=== PATIENT | male | born 1945 | race Caucasian/White ===

== ENCOUNTER 2018-12-15 11:10 | Inpatient (IN) | payer MEDICARE, OTHER ==
[2018-12-15] VITALS (28 sets, daily range): BP systolic 111–160; BP diastolic 47–129; PULSE 77–97; RESP 16–25; Ht 170.2 cm; Wt 67.6 kg
[~2018-12-15] VITALS: Ht 170.2 cm; Wt 67.6 kg
[~2018-12-15 11:10] MED LIST: ALBU8.5H5 INH; CETI10TA19 PO; CLON1TAB13 PO; DICL100G37 TOP; DILT240C85 PO; FENO145T37 PO; LIDOCAINE 2% (SDV) 5 ML INJ ONE; MECL-77 PO; MONT10TA21 PO; RANI150T5 PO; ROSU10TA55 PO
--- NOTE | 2018-12-15 12:19 | ERD ---
ER Documentation Chief Complaint Chief Complaint ALOC with left sided weakness, LKWT [id number] HPI Patient is a 73-year-old male with hypertension who presents altered. Please note the history and physical exam is limited secondary to the patient's altered mental status. The patient was last seen by family 1 hour ago normal and was br ought in by ambulance. The patient was found on the couch. The patient had a code stroke called from the field at 11:08 AM. It is difficult to obtain history otherwise. ROS All systems reviewed and are negative except as per history of present illness. Medications Home Meds Reported Medications Ranitidine Hcl* (Ranitidine Hcl*) 150 Mg Tablet, 150 MG PO HS, #30 TAB 12/15/18 Esomeprazole Mag Trihydrate (Nexium) 40 Mg Capsule.dr, 40 MG PO DAILY, #30 CAP 12/15/18 Memantine* (Namenda* XR) 7 Mg Cap.spr.24, 7 MG PO DAILY, #30 TAB 12/15/18 Losartan-Hydrochlorothiazide (Losartan-HCTZ) 50-12.5 Mg Tab, 1 TAB PO DAILY, TAB 12/15/18 Sitagliptin* (Januvia*) 50 Mg Tablet, 50 MG PO DAILY, #30 TAB 12/15/18 Hydralazine Hcl* (Hydralazine Hcl*) 25 Mg Tab, 25 MG PO Q6H PRN for SBP>150, #60 TAB 12/15/18 Glimepiride* (Glimepiride*) 1 Mg Tablet, 1 MG PO WITH BREAKFAST, TAB 12/15/18 Fenofibrate, Micronized (Fenofibrate) 134 Mg Capsule, 134 MG PO DAILY, CAP 12/15/18 Prasugrel Hydrochloride* (Effient*) 5 Mg Tablet, 5 MG PO DAILY, TAB 12/15/18 Docusate Sodium* (Dok*) 250 Mg Capsule, 250 MG PO TID, #60 CAP 12/15/18 Diltiazem Hcl* (Cardizem CD*) 240 Mg Cap.sr.24h, 240 MG PO DAILY, #30 CAP 12/15/18 Cyanocobalamin (Vitamin B-12) (Cyanocobalamin Injection) 1,000 Mcg/1 Ml Vial, 1000 MCG IJ Q WEEK, VIAL 12/15/18 Rosuvastatin Calcium* (Crestor*) 10 Mg Tablet, 10 MG PO QHS, #30 TAB 12/15/18 Clonazepam* (Clonazepam*) 1 Mg Tablet, 1 MG PO BID PRN for ANXIETY, TAB 12/15/18 Tadalafil (Cialis) 5 Mg Tablet, 5 MG PO DAILY, TAB 12/15/18 Celecoxib* (Celebrex*) 200 Mg Capsule, 200 MG PO BID, CAP 12/15/18 Discontinued Reported Medications Meclizine Hcl* (Meclizine Hcl*) 25 Mg Tablet, 25 MG PO TID, TAB 09/27/15 Clonazepam* (Clonazepam*) 1 Mg Tablet, 1 MG PO BID PRN for ANXIETY, TAB 09/27/15 Cetirizine Hcl* (Cetirizine Hcl*) 10 Mg Tablet, 10 MG PO DAILY, #30 TAB 09/27/15 Fenofibrate Nanocrystallized* (Fenofibrate*) 145 Mg Tablet, 134 MG PO DAILY, TAB 09/27/15 Albuterol Sulfate* (Albuterol Sulfate* HFA) 8.5 Gm Hfa.aer.ad, 1-2 PUFF INH BID PRN for WHEEZING AND SOB, #1 INHALER 09/27/15 Diltiazem Hcl (DILTIAZEM 24HR CD) 240 Mg Cap.er.24h, 240 MG PO, CAP 09/27/15 Diclofenac Sodium* (Voltaren* Gel) 1% -100 Gm Gel, 2 GM TOP BID, #1 TUB 09/27/15 Ranitidine Hcl* (Ranitidine Hcl*) 150 Mg Tablet, 150 MG PO DAILY, TAB 09/27/15 Montelukast Sodium* (Singulair*) 10 Mg Tablet, 10 MG PO QHS, #30 TAB 09/27/15 Rosuvastatin Calcium* (Crestor*) 10 Mg Tablet, 10 MG PO QHS, #30 TAB 09/27/15 Allergies Allergies: Coded Allergies: Penicillins (Unverified Allergy, Unknown, 12/15/18) aspirin (Unverified Allergy, Unknown, 12/15/18) PMhx/Soc Medical and Surgical Hx: Unable to obtain History of Surgery: No Anesthesia Reaction: No Hx Neurological Disorder: No Hx Respiratory Disorders: Yes Hx Cardiac Disorders: Yes Hx Psychiatric Problems: No Hx Miscellaneous Medical Probl: No Hx Alcohol Use: No Hx Substance Use: No Hx Tobacco Use: No Smoking Status: Never smoker FmHx Unable to obtain Physical Exam Vitals Vital Signs Date Temp Pulse Resp B/P (MAP) Pulse Ox O2 O2 Flow FiO2 Time Delivery Rate 12/15/18 69 14 172/118 100 Nasal 12:22 (136) Cannula 12/15/18 Nasal 11:20 Cannula 12/15/18 96.3 63 15 173/74 99 11:10 (107) Physical Exam Const: Altered mental status Head: Atraumatic Eyes: Normal Conjunctiva ENT: Left sided facial droop Neck: Full range of motion. No meningismus. Resp: Clear to auscultation bilaterally Cardio: Regular rate and rhythm, no murmurs Abd: Soft, non tender, non distended. Normal bowel sounds Skin: No petechiae or rashes Back: No midline or flank tenderness Ext: No cyanosis, or edema Neur: Awake and able to follow simple commands, flaccid left-sided upper and lower extremity paralysis, only able to say his name Result Diagram: 12/15/18 1114 12/15/18 1114 Results 24 hrs Laboratory Tests Test 12/15/18 11:14 12/15/18 11:28 12/15/18 12:05 White Blood Count 15.2 10^3/ul Red Blood Count 4.27 10^6/ul Hemoglobin 12.3 g/dl Hematocrit 38.5 % Mean Corpuscular Volume 90.2 fl Mean Corpuscular Hemoglobin 28.8 pg Mean Corpuscular 31.9 g/dl Hemoglobin Concent Red Cell Distribution Width 13.3 % Platelet Count 347 10^3/UL Mean Platelet Volume 9.6 fl Immature Granulocytes % 0.700 % Neutrophils % 78.9 % Lymphocytes % 13.8 % Monocytes % 6.0 % Eosinophils % 0.2 % Basophils % 0.4 % Nucleated Red Blood Cells % 0.0 /100WBC Immature Granulocytes # 0.110 10^3/ul Neutrophils # 12.0 10^3/ul Lymphocytes # 2.1 10^3/ul Monocytes # 0.9 10^3/ul Eosinophils # 0.0 10^3/ul Basophils # 0.1 10^3/ul Nucleated Red Blood Cells # 0.0 10^3/ul Prothrombin Time 12.9 Sec Prothrombin Time Ratio 1.0 INR International 0.96 Normalized Ratio Activated Partial Thromboplast 23.3 Sec Time Sodium Level 143 mmol/L Potassium Level 3.4 mmol/L Chloride Level 104 mmol/L Carbon Dioxide Level 26 mmol/L Anion Gap 13 Blood Urea Nitrogen 23 mg/dl Creatinine 1.19 mg/dl Est Glomerular Filtrat mL/min Rate mL/min Glucose Level 192 mg/dl Hemoglobin A1c 5.7 % Calcium Level 9.8 mg/dl Creatine Kinase 144 IU/L Creatine Kinase Index 0.5 Creatinine Kinase MB (Mass) 0.74 ng/ml Troponin I < 0.012 ng/ml Triglycerides Level 170 mg/dl Cholesterol Level 193 mg/dl LDL Cholesterol, Calculated 118 mg/dl HDL Cholesterol 41 mg/dl Cholesterol/HDL Ratio 4.7 RATIO Ethyl Alcohol Level < 10.0 mg/dl Bedside Glucose 176 mg/dL Urine Color STRAW Urine Clarity CLEAR Urine pH 6.0 Urine Specific [place] 1.014 Urine Ketones NEGATIVE mg/dL Urine Nitrite NEGATIVE mg/dL Urine Bilirubin NEGATIVE mg/dL Urine Urobilinogen NEGATIVE mg/dL Urine Leukocyte Esterase NEGATIVE Christian/ul Urine Hemoglobin NEGATIVE mg/dL Urine Glucose 2+ mg/dL Urine Total Protein NEGATIVE mg/dl Current Medications Medications Dose Sig/Genesis Start Time Status Last (Trade) Ordered Route PRN Stop Time Admin Dose Reason Admin Nicardipine 200 ml @ ONCE STAT 12/15/18 12/15/18 HCl 50 mls/hr IV 12:20 12/15/18 12:33 16:19 150 mg ONCE STAT 12/15/18 DC Succinylcholi IV 12:23 12/15/18 ne Chloride 12:24 (Anectine Syringe) Etomidate 20 mg ONCE STAT 12/15/18 DC (Amidate) IV 12:23 12/15/18 12:24 1 mg ONCE STAT 12/15/18 DC Hydromorphone IV 12:23 12/15/18 HCl 12:24 (Dilaudid) 1 mg ONCE STAT 12/15/18 DC Hydromorphone IV 12:23 12/15/18 HCl 12:24 (Dilaudid) Procedures/MDM CT brain shows large right-sided bleed with midline shift per radiology. Chest x-ray read by radiology. EKG read by me: Rate/Rhythm: Regular rate and rhythm at a normal rate Intervals: Normal Impression: No evidence of ischemia or arrhythmia Patient is a 73-year-old male who presents altered. A code stroke was called from the field at 11:08 AM. 11:08 AMcode stroke called from the field 11:10 AMarrival to the ER 11:[address] scan 11:16 AMcall to tell neurology 11:20 AMpatient is not a TPA candidate as the patient has a large bleed seen on CT scan I did consider intubation initially and then further on the course but at this time the family wants to hold off for intubation. The patient is a large right-sided bleed which is life-threatening. At this point I do not see any signs of coagulation abnormalities. Blood pressure was 170/110 and the patient was started on a Cardene drip. I spoke with Dr. Henderson who will speak to the family about potential surgical interventions. Tele-neurology saw the patient as well and recommended blood pressure control with a blood pressure of 140/90 is the goal. Patient will be admitted to the intensive care unit to the care of Dr. Gannon. His prognosis is poor. Critical Care: Time: 45 minutes excluding all billable procedures. Treatments/Evaluations: Close monitoring and treatment of unstable vital signs, cardiorespiratory, and neurologic status, while maintaining tight balance of fluid, respiratory, and cardiac interventions. Departure Diagnosis: Primary Impression: ICH (intracerebral hemorrhage) Intracerebral hemorrhage etiology: nontraumatic Cerebral hemorrhage location: cerebral hemisphere, cortical portion Laterality: right Qualified Codes: I61.1 - Nontraumatic intracerebral hemorrhage in hemisphere, cortical Additional Impression: Altered mental status Altered mental status type: unspecified Qualified Codes: R41.82 - Altered mental status, unspecified Condition: Critical NANCY SHEPPARD MD Dec 15, 2018 12:19
[2018-12-15] MEDS ORDERED: niCARdipine-NS 0.1MG/ML DRIP 200 ML IV STA (12:20)
[2018-12-15] MEDS ORDERED: CELE200C PO (12:21)
[2018-12-15] MEDS ORDERED: TADA5TAB2 PO (12:22)
[2018-12-15] MEDS ORDERED: ETOMIDATE 20 MG INJ IV STA (12:23)
[2018-12-15] MEDS ORDERED: ROSU10TA55 PO (12:23)
[2018-12-15] MEDS ORDERED: SUCCINYLCHOLINE CHLORIDE 100 MG/5 ML SYG IV STA (12:23)
[2018-12-15] MEDS ORDERED: CLON1TAB13 PO (12:23)
[2018-12-15] MEDS ORDERED: HYDROmorphONE 1 MG/ML SYG IV STA ×2 (12:23)
[2018-12-15] MEDS ORDERED: CYAN100092 IJ (12:25)
[2018-12-15] MEDS ORDERED: DILT240C79 PO (12:27)
[2018-12-15] MEDS ORDERED: DOCU250C68 PO (12:28)
[2018-12-15] MEDS ORDERED: PRAS5TAB3 PO (12:28)
[2018-12-15] MEDS ORDERED: FENO134C PO (12:29)
[2018-12-15] MEDS ORDERED: GLIM1TAB2 PO (12:30)
[2018-12-15] MEDS ORDERED: HYDR-3671 PO (12:31)
[2018-12-15] MEDS ORDERED: SITA50TA2 PO (12:31)
[2018-12-15] MEDS ORDERED: LOSA1TAB22 PO (12:32)
[2018-12-15] MEDS ORDERED: MEMA7CAP PO (12:34)
[2018-12-15] MEDS ORDERED: ESOM40CA PO (12:35)
[2018-12-15] MEDS ORDERED: RANI150T5 PO (12:36)
[2018-12-15] MEDS ORDERED: ZOLP5TAB7 PO (12:38)
[2018-12-15] MEDS ORDERED: LEVO5TAB28 PO (12:39)
[2018-12-15] MEDS ORDERED: RANI150T35 PO (12:40)
[2018-12-15] MEDS ORDERED: ERGO500013 PO (12:41)
[2018-12-15] MEDS ORDERED: VITA400C41 PO (12:42)
[2018-12-15] MEDS ORDERED: CYAN500T46 PO (12:43)
--- NOTE | 2018-12-15 12:54 | STROKE ---
Date/Time of Note Date/Time of Note DATE: 12/15/18 TIME: 14:50 Patient Information General Patient location: emergency Arrival Date Age 73 Gender male Weight 75 kg POC Glucose Glucose Result Bedside Glucose - 72 Hours Test 12/15/18 11:28 Bedside Glucose 176 mg/dL (70-220) Vital Signs Vital Signs Vital Signs Date Temp Pulse Resp B/P (MAP) Pulse Ox O2 O2 Flow FiO2 Time Delivery Rate 12/15/18 69 14 172/118 100 Nasal 12:22 (136) Cannula 12/15/18 96.3 11:10 Patient History Current Medications Allergies: Coded Allergies: Penicillins (Unverified Allergy, Unknown, 12/15/18) aspirin (Unverified Allergy, Unknown, 12/15/18) ASPIRIN/SALICYLATES Labs Coagulation Labs: Coagulation Test 12/15/18 11:14 Activated Partial Thromboplast Time 23.3 Sec (23.0-35.0) History & Physical History of Present Illness 73 y/o M last known well at 0200 this morning. Per family at [facility], pt went to sleep on couch and awoke at approximately 0800, was unable to get up off couch and was incontinent of urine. Initial EMS evaluation revealed pinpoint pupils, no significant change with narcan. Presented to ER with decreased responsiveness, no improvement since. No recent trauma. Family reports no known anticoagulants. INR 1.7, plt 343 On exam, pt comatose. No spontaneous speech or eye opening. Left paresis, moves right spontaneously and minimally. . NIH Stroke Scale NIH Stroke Scale Date/Time Recorded DATE: 12/15/18 TIME: 14:50 Submitted By Marycarmen Vela t-PA Imaging Review Date/Time Imaging Reviewed DATE: 12/15/18 TIME: 14:50 t-PA Administration Weight 75 kg Recommedation submitted by Marycarmen Vela Recommendations Recommendation Spontaneous ICH. ICH score =3. Recommend STAT Neurosurgery consultation, keep HOB elevated 30 degrees. Additional imaging when stable.. Admit to ICU for close monitoring and treatment. Keep SBP ,160/100, avoid hypotension. Correct any coagulopathy. MRI brain and MRA brain and neck. Elevate HOB 30 degrees. Intubate for airway protection. seizure precautions. 2DECHO. D/W Dr. Katalina VELA,MARYCARMEN MAURER Dec 15, 2018 12:54
[2018-12-15] MEDS ORDERED: MANNITOL 25% 50 ML INJ IV* ONE (13:00)
[2018-12-15] MEDS ORDERED: NACL 0.9% 3 ML SYG IV SCH (13:00)
[2018-12-15] MEDS ORDERED: DESMOPRESSIN 22.5 MCG in SOD CHLORIDE 0.9% 50 ML IVPB ONE (13:00)
[2018-12-15] MEDS ORDERED: HYDROmorphONE 0.5 MG/0.5 ML SYG IV PRN ×4 (13:00→17:30)
[2018-12-15] MEDS ORDERED: GELATIN SIZE 100 SPONGE ONE ×2 (13:10→16:37)
[2018-12-15] MEDS ORDERED: POLYMYXIN/BACITRACIN 1L IRRIG ONE (13:10)
[2018-12-15] MEDS ORDERED: THROMBIN (BOVINE) 5,000 UNIT VIAL TP ONE ×4 (13:10→16:49)
--- NOTE | 2018-12-15 13:17 | CONS ---
Assessment/Plan Assessment/Plan Hospital Course 73 M c/ reported Hx of HTN, who is admitted to the [facility] ICU for management of acute cerebral hemorrhage...for which neurology is consulted.. s/p emergent neurosurgery on 12/15 P: Post-op management per neurosurgery CTA Head with post-op surveillance scan if possible Keppra 500mg iv bid for now Ativan iv prn prolonged seizure Strict BP control (SBP < 160) Hold antiplatelets and anticoagulants Goals of care and other management per primary Will follow clinically Consultation Date/Type/Reason Admit Date/Time Type of Consult Neurology Reason for Consultation ICH Requesting Provider: CASSANDRA WHITE MD Date/Time of Note DATE: 12/15/18 TIME: 13:02 Hx of Present Illness 73 yo M with hx of HTN who presented to the ED with altered mental status. History was obtained from chart review. It is elsewhere noted: HPI Patient is a 73-year-old male with hypertension who presents altered. Please note the history and physical exam is limited secondary to the patient's altered mental status. The patient was last seen by family 1 hour ago normal and was brought in by ambulance. The patient was found on the couch. The patient had a code stroke called from the field at 11:08 AM. It is difficult to obtain history otherwise. Subjective hx not possible: pt non-verbal, pt critical status Exam/Review of Systems Exam Vitals Vital Signs Date Temp Pulse Resp B/P (MAP) Pulse Ox O2 O2 Flow FiO2 Time Delivery Rate 12/15/18 69 14 172/118 100 Nasal 12:22 (136) Cannula 12/15/18 96.3 11:10 Exam PE: Gen Appearance: No Apparent Distress HEENT: Normocephalic; on nasal cannula Cardiovascular: Regular rate; SBP 190s Respiratory: Abdomen: Soft Extremities: Dry NE: The patient was obtunded and nonverbal. Cranial nerve examination was limited by mental status. R pupils was 5mm, dilated and unreactive; L pupil was pinpoint and unreactive to light. Funduscopic examination was limited. Face was grossly symmetric, w/ present corneal reflexes. Tone was increased in BUE (L>R). Muscle bulk was normal. I did not see fas ciculations. The patient minimal, but decerebrate posturing to noxious stimulation. Coordination and gait testing was limited by mental status. Arm and leg reflexes were within normal limits and symmetric. Munoz's sign was absent. Plantar responses were flexor. Results Result Diagram: 12/15/18 1114 12/15/18 1114 Results 24hrs Laboratory Tests Test 12/15/18 11:14 12/15/18 11:28 12/15/18 12:05 White Blood Count 15.2 #H Red Blood Count 4.27 L Hemoglobin 12.3 L Hematocrit 38.5 L Mean Corpuscular Volume 90.2 Mean Corpuscular Hemoglobin 28.8 L Mean Corpuscular Hemoglobin Concent 31.9 L Red Cell Distribution Width 13.3 Platelet Count 347 Mean Platelet Volume 9.6 # Immature Granulocytes % 0.700 H Neutrophils % 78.9 H Lymphocytes % 13.8 L Monocytes % 6.0 Eosinophils % 0.2 Basophils % 0.4 Nucleated Red Blood Cells % 0.0 Immature Granulocytes # 0.110 H Neutrophils # 12.0 H Lymphocytes # 2.1 Monocytes # 0.9 Eosinophils # 0.0 Basophils # 0.1 Nucleated Red Blood Cells # 0.0 Prothrombin Time 12.9 Prothrombin Time Ratio 1.0 INR International Normalized Ratio 0.96 Activated Partial Thromboplast Time 23.3 Sodium Level 143 Potassium Level 3.4 L Chloride Level 104 Carbon Dioxide Level 26 Anion Gap 13 Blood Urea Nitrogen 23 H Creatinine 1.19 Est Glomerular Filtrat Rate mL/min Glucose Level 192 Hemoglobin A1c 5.7 Calcium Level 9.8 Creatine Kinase 144 Creatine Kinase Index 0.5 Creatinine Kinase MB (Mass) 0.74 Troponin I < 0.012 Triglycerides Level 170 H Cholesterol Level 193 LDL Cholesterol, Calculated 118 HDL Cholesterol 41 Cholesterol/HDL Ratio 4.7 Ethyl Alcohol Level < 10.0 H Bedside Glucose 176 Urine Color STRAW Urine Clarity CLEAR Urine pH 6.0 Urine Specific [place] 1.014 Urine Ketones NEGATIVE Urine Nitrite NEGATIVE Urine Bilirubin NEGATIVE Urine Urobilinogen NEGATIVE Urine Leukocyte Esterase NEGATIVE Urine Hemoglobin NEGATIVE Urine Glucose 2+ H Urine Total Protein NEGATIVE Medications Medication Current Medications Nicardipine HCl 200 ml @ 50 mls/hr ONCE STAT IV Last administered on 12/15/18at 12:33; Admin Dose 50 MLS/HR; Start 12/15/18 at 12:20; Stop 12/15/18 at 16:19 IV Flush (NS 3 ml) 3 ml PER PROTOCOL IV ; Start 12/15/18 at 13:00 Hydromorphone HCl (Dilaudid) 0.5 mg Q4H PRN IV .SEVERE PAIN 7-10; Start 12/15/18 at 13:00 Desmopressin Acetate 22.5 mcg/ Sodium Chloride 55.625 ml @ 111.25 mls/hr ONCE ONCE IVPB ; Start 12/15/18 at 13:00; Stop 12/15/18 at 13:29 Past Medical History reviewed Home Meds Reported Medications Cyanocobalamin* (Vitamin B12*) 500 Mcg Tab, 500 MCG PO DAILY, TAB 12/15/18 Vitamin E Mixed* (Vitamin E*) 400 Unit Capsule, 400 UNIT PO DAILY, CAP 12/15/18 Ergocalciferol (Vitamin D2) (VITAMIN D2) 50,000 Unit Capsule, 40945 UNIT PO Q7D, CAP 12/15/18 Ranitidine Hcl* (Zantac*) 150 Mg Tablet, 150 MG PO HS, #30 TAB 12/15/18 Levocetirizine Dihydrochloride (Xyzal) 5 Mg Tablet, 5 MG PO QPM, TAB 12/15/18 Zolpidem Tartrate* (Zolpidem Tartrate*) 5 Mg Tablet, 5 MG PO QHS PRN for INSOMNIA, #30 TAB 12/15/18 Esomeprazole Mag Trihydrate (Nexium) 40 Mg Capsule.dr, 40 MG PO DAILY, #30 CAP 12/15/18 Memantine* (Namenda* XR) 7 Mg Cap.spr.24, 7 MG PO DAILY, #30 TAB 12/15/18 Losartan-Hydrochlorothiazide (Losartan-HCTZ) 50-12.5 Mg Tab, 1 TAB PO DAILY, TAB 12/15/18 Sitagliptin* (Januvia*) 50 Mg Tablet, 50 MG PO DAILY, #30 TAB 12/15/18 Hydralazine Hcl* (Hydralazine Hcl*) 25 Mg Tab, 25 MG PO Q6H PRN for SBP>150, #60 TAB 12/15/18 Glimepiride* (Glimepiride*) 1 Mg Tablet, 1 MG PO WITH BREAKFAST, TAB 12/15/18 Fenofibrate, Micronized (Fenofibrate) 134 Mg Capsule, 134 MG PO DAILY, CAP 12/15/18 Prasugrel Hydrochloride* (Effient*) 5 Mg Tablet, 5 MG PO DAILY, TAB 12/15/18 Docusate Sodium* (Dok*) 250 Mg Capsule, 250 MG PO TID, #60 CAP 12/15/18 Diltiazem Hcl* (Cardizem CD*) 240 Mg Cap.sr.24h, 240 MG PO DAILY, #30 CAP 12/15/18 Cyanocobalamin (Vitamin B-12) (Cyanocobalamin Injection) 1,000 Mcg/1 Ml Vial, 1000 MCG IJ Q WEEK, VIAL 12/15/18 Rosuvastatin Calcium* (Crestor*) 10 Mg Tablet, 10 MG PO QHS, #30 TAB 12/15/18 Clonazepam* (Clonazepam*) 1 Mg Tablet, 1 MG PO BID PRN for ANXIETY, TAB 12/15/18 Tadalafil (Cialis) 5 Mg Tablet, 5 MG PO DAILY, TAB 12/15/18 Celecoxib* (Celebrex*) 200 Mg Capsule, 200 MG PO BID, CAP 12/15/18 Discontinued Reported Medications Ranitidine Hcl* (Ranitidine Hcl*) 150 Mg Tablet, 150 MG PO HS, #30 TAB 12/15/18 Meclizine Hcl* (Meclizine Hcl*) 25 Mg Tablet, 25 MG PO TID, TAB 09/27/15 Clonazepam* (Clonazepam*) 1 Mg Tablet, 1 MG PO BID PRN for ANXIETY, TAB 09/27/15 Cetirizine Hcl* (Cetirizine Hcl*) 10 Mg Tablet, 10 MG PO DAILY, #30 TAB 09/27/15 Fenofibrate Nanocrystallized* (Fenofibrate*) 145 Mg Tablet, 134 MG PO DAILY, TAB 09/27/15 Albuterol Sulfate* (Albuterol Sulfate* HFA) 8.5 Gm Hfa.aer.ad, 1-2 PUFF INH BID PRN for WHEEZING AND SOB, #1 INHALER 09/27/15 Diltiazem Hcl (DILTIAZEM 24HR CD) 240 Mg Cap.er.24h, 240 MG PO, CAP 09/27/15 Diclofenac Sodium* (Voltaren* Gel) 1% -100 Gm Gel, 2 GM TOP BID, #1 TUB 09/27/15 Ranitidine Hcl* (Ranitidine Hcl*) 150 Mg Tablet, 150 MG PO DAILY, TAB 09/27/15 Montelukast Sodium* (Singulair*) 10 Mg Tablet, 10 MG PO QHS, #30 TAB 09/27/15 Rosuvastatin Calcium* (Crestor*) 10 Mg Tablet, 10 MG PO QHS, #30 TAB 09/27/15 Medications Current Medications Nicardipine HCl 200 ml @ 50 mls/hr ONCE STAT IV Last administered on 12/15/18at 12:33; Admin Dose 50 MLS/HR; Start 12/15/18 at 12:20; Stop 12/15/18 at 16:19 IV Flush (NS 3 ml) 3 ml PER PROTOCOL IV ; Start 12/15/18 at 13:00 Hydromorphone HCl (Dilaudid) 0.5 mg Q4H PRN IV .SEVERE PAIN 7-10; Start 12/15/18 at 13:00 Desmopressin Acetate 22.5 mcg/ Sodium Chloride 55.625 ml @ 111.25 mls/hr ONCE ONCE IVPB ; Start 12/15/18 at 13:00; Stop 12/15/18 at 13:29 Allergies: Coded Allergies: Penicillins (Unverified Allergy, Unknown, 12/15/18) aspirin (Unverified Allergy, Unknown, 12/15/18) ASPIRIN/SALICYLATES Past Surgical History reviewed Social History reviewed Smoking Status: Never smoker VICK DIEHL NP Dec 15, 2018 13:12 PARTHA MILLER Dec 15, 2018 15:19
--- NOTE | 2018-12-15 13:51 | CONS ---
Assessment/Plan Assessment/Plan Assessment/Plan (Daily) Date of consultation: 12/15/2089 Requesting physician: Dr. Obinna Chapman with the emergency department Consulting service: Neurosurgery This is a 73-year-old male with past medical history significant for hypertension and diabetes who lives with one of his sisters and was noted to hav e developed acute altered level of consciousness earlier today and was brought in to the emergency department. Initially at the time of arrival, the patient was found to be left hemiplegic but somewhat awake and able to follow simple commands with right side. However as time passed the patient became progressively lethargic and no longer following commands. As part of his workup , he had a CT of the head without contrast that showed a large right frontal hematoma and neurosurgery was consulted for further evaluation. According to the patient's family including his niece, Elida, the patient has not had any preceding trauma to the head. The patient usually takes is medications including his blood pressure medications. The patient amongst his other medications uses Effient although the family does not exactly know for what indication he takes his medication. The patient does not have any children and never . According to the family, the patient has been relatively active and able to take care of himself prior to today. Past medical history: Hypertension, diabetes, asthma, erectile dysfunction, coronary artery disease, asthma Allergies: Penicillin, aspirin Review of systems: Cannot be obtained as the patient is comatose Family history: Noncontributory Social history: Per family, EtOH: None tobacco: None illicit or recreational drugs: None Physical examination: This is a elderly male lying in bed. He appears to be younger than his stated age. He is intubated and on a ventilator. There anisa ears to be a left facial droop. Pupils are 2 mm bilaterally. Bilateral corneals, cough and gag reflex are present. He does not follow commands. He does not open his eyes to voice or pain. He does not move his upper or lower extremities to voice or pain. Muscle bulk and tone is normal bilateral upper and lower extremity. Deep tendon reflexes are 1+ bilateral upper and lower extremity. There is no Fabienne sign present bilaterally. The remainder of the neurologic exam cannot be completed as the patient is unresponsive. Imaging: CT of the head without contrast: There is a very large right frontal hematoma with a hematoma coming right to the surface of the cortex laterally and extension of the intraparenchymal hematoma into the lateral ventricle causing intraventricular hemorrhage. There is several millimeter right to left midline shift with evidence of subfalcine herniation. Assessment/plan: This is a 73-year-old male with spontaneous large right frontal intraparenchymal hematoma with extension into the lateral ventricle causing intraventricular hemorrhage. The patient has had a rapid deterioration in his neurologic state while being in the emergency department. The likely cause of the patient's above hematoma is multifactorial including hypertension, amyloid angiopathy as well as iatrogenic i.e. use of Effient. As soon as I was contacted by Dr. Chapman, the emergency room physician about the patient, I personally reviewed his CT imaging and immediately spoke to the patient's niece, Elida, who amongst other family members was at bedside. I informed the family about the patient's very significant right frontal hemorrha gic stroke and his critically ill state. We discussed the various treatment options that included surgical intervention as well as medical/supportive care versus medical/supportive care alone. Surgical intervention would include emergent evacuation of the right frontal hematoma, placement of ventriculostomy drain followed by medical/supportive care that would be in the ICU including strict blood pressure control. We also spoke about the pros and cons of each of the above approaches. In addition, I also emphasized the goals of surgical intervention that would be to help decompress the patient's right frontal region as much as possible to minimize impending transtentorial herniation. However, unfortunately with surgical intervention it is not possible to undue the irreversible effects of the large hemorrhagic stroke that would include the patient's left hemiplegia. I also explained that the patient would need to be intubated as soon as possible given his depressed neurologic state to protect his airway should the family based on his prior wishes (if any) decide to pursue maximum invasive and supportive care. The patient's family at first was unsure as to whether they even wanted the patient to be intubated and needed to get the rest of the family in the room to see the patient. The family eventually decided to proceed with intubation that was done in the emergency room by the anesthesiologist. They also decided to proceed with surgical intervention. I also discussed the risks and benefits of the above operation with the risks including bleeding, infection, weakness, numbness, paralysis, cerebrospinal fluid leak, comatose state, difficulty with speech, difficulty with vision, persistent vegetative state, failure of improvement of symptoms or worsening of symptoms, need for further surgeries including redo craniotomy for evacuation of the hematoma and/or CSF diversion i.e. CLOTH DOFFER shunt placement as well as those risks associated with surgery and general anesthesia including deep venous thrombosis, pulmonary embolism, pneumonia, heart attack, stroke and . It was also emphasized to the patient's family that given the fact that the patient has been taking Effient which irreversibly inhibits platelet function for 7 days, the patient's prognosis is further worsened as it makes the operation and the hemostasis more difficult and it makes it more likely for the hematoma to recur. The patient's family members including his many nieces, nephews and siblings all understand the above discussion and wished to proceed with the surgery. There are also aware of the patient's overall poor prognosis. They also appear to be very appreciative of all the care that the patient is receiving. BRYN PINK MD Dec 15, 2018 13:51
[2018-12-15] MEDS ORDERED: LIDOCAINE 1% (MPF) 30 ML INJ ONE (14:54)
[2018-12-15] MEDS ORDERED: BUPIVACAINE 0.5%/EPI (SDV) 30 ML INJ ONE (14:54)
--- NOTE | 2018-12-15 15:05 | HP ---
Date/Time of Note Date/Time of Note DATE: 12/15/18 TIME: 15:02 Assessment/Plan VTE Prophylaxis SCD applied (from Nsg): Yes Pharmacological prophylaxis: NA/contraindicated Pharm contraindication: bleeding Lines/Catheters IV Catheter Type (from Nrsg): Saline Lock Assessment/Plan Hospital Course 73 yo male who presents with obtundation acute and found to have hemorrhagic stroke/ICH with severe hypertension - Acute surgical management per Dr Ruby - JUAN M > 30 Hypertenion management Full plan to follow OR Family requests DNR Result Diagram: 12/15/18 1114 12/15/18 1114 Results 24hrs Laboratory Tests Test 12/15/18 11:14 12/15/18 11:28 12/15/18 12:05 White Blood Count 15.2 #H Red Blood Count 4.27 L Hemoglobin 12.3 L Hematocrit 38.5 L Mean Corpuscular Volume 90.2 Mean Corpuscular Hemoglobin 28.8 L Mean Corpuscular Hemoglobin Concent 31.9 L Red Cell Distribution Width 13.3 Platelet Count 347 Mean Platelet Volume 9.6 # Immature Granulocytes % 0.700 H Neutrophils % 78.9 H Lymphocytes % 13.8 L Monocytes % 6.0 Eosinophils % 0.2 Basophils % 0.4 Nucleated Red Blood Cells % 0.0 Immature Granulocytes # 0.110 H Neutrophils # 12.0 H Lymphocytes # 2.1 Monocytes # 0.9 Eosinophils # 0.0 Basophils # 0.1 Nucleated Red Blood Cells # 0.0 Prothrombin Time 12.9 Prothrombin Time Ratio 1.0 INR International Normalized Ratio 0.96 Activated Partial Thromboplast Time 23.3 Sodium Level 143 Potassium Level 3.4 L Chloride Level 104 Carbon Dioxide Level 26 Anion Gap 13 Blood Urea Nitrogen 23 H Creatinine 1.19 Est Glomerular Filtrat Rate mL/min Glucose Level 192 Hemoglobin A1c 5.7 Calcium Level 9.8 Creatine Kinase 144 Creatine Kinase Index 0.5 Creatinine Kinase MB (Mass) 0.74 Troponin I < 0.012 Triglycerides Level 170 H Cholesterol Level 193 LDL Cholesterol, Calculated 118 HDL Cholesterol 41 Cholesterol/HDL Ratio 4.7 Ethyl Alcohol Level < 10.0 H Bedside Glucose 176 Urine Color STRAW Urine Clarity CLEAR Urine pH 6.0 Urine Specific [place] 1.014 Urine Ketones NEGATIVE Urine Nitrite NEGATIVE Urine Bilirubin NEGATIVE Urine Urobilinogen NEGATIVE Urine Leukocyte Esterase NEGATIVE Urine Hemoglobin NEGATIVE Urine Glucose 2+ H Urine Total Protein NEGATIVE Urine Opiates Screen Negative Urine Barbiturates Negative Urine Amphetamines Screen Negative Urine Benzodiazepines Screen Negative Urine Cocaine Screen Negative Urine Cannabinoids Negative HPI/ROS Admit Date/Time Admit Date/Time Hx of Present Illness 73 yo male with h/o hypertension who was found obtunded on his couch by family He is unable to provide a history. Found to have ICH and taken emergently to OR. Family requests DNR status but agrees to surgical management ROS Subjective hx not possible: pt non-verbal, pt critical Constitutional: no complaints, improved Eyes: no complaints ENT: no complaints Respiratory: no complaints Cardiovascular: no complaints Gastrointestinal: no complaints Genitourinary: no complaints Musculoskeletal: no complaints Skin: no complaints Neurologic: no complaints Endocrine: no complaints Lymphatic: no complaints Psychological: no complaints, nl mood/affect Immunologic: no complaints PMH/Family/Social Past Medical History Medical History: hypertension Medications Current Medications Nicardipine HCl 200 ml @ 50 mls/hr ONCE STAT IV Last administered on 12/15/18at 12:33; Admin Dose 50 MLS/HR; Start 12/15/18 at 12:20; Stop 12/15/18 at 16:19 IV Flush (NS 3 ml) 3 ml PER PROTOCOL IV ; Start 12/15/18 at 13:00 Hydromorphone HCl (Dilaudid) 0.5 mg Q4H PRN IV .SEVERE PAIN 7-10; Start 12/15/18 at 13:00 Levetiracetam 100 ml @ 400 mls/hr BID IVPB ; Start 12/15/18 at 14:00 Coded Allergies: Penicillins (Unverified Allergy, Unknown, 12/15/18) aspirin (Unverified Allergy, Unknown, 12/15/18) ASPIRIN/SALICYLATES Past Surgical History Past Surgical Hx: no surgical history Family History Significant Family History: no pertinent family hx Social History Alcohol Use: none Smoking Status: Never smoker Drug Use: none Exam/Review of Systems Vital Signs Vitals Vital Signs Date Temp Pulse Resp B/P (MAP) Pulse Ox O2 O2 Flow FiO2 Time Delivery Rate 12/15/18 115 20 133/68 100 Nasal 13:24 (89) Cannula 12/15/18 4.0 13:00 12/15/18 96.3 11:10 Exam Exam Obtunded No response to noxious stimuli Breathing spotnaneously Pupils fixed b/l, no vestibular reflexes present Babinski negative Protecting airway adequately, breathing comfortably RRR CASSANDRA WHITE MD Dec 15, 2018 15:05
[2018-12-15] MEDS ORDERED: LORAZEPAM 2 MG INJ IV PRN ×2 (15:30→17:30)
[2018-12-15] MEDS ORDERED: LIDOCAINE 1%/EPI 30 ML INJ INJ ONE (15:54)
[2018-12-15] MEDS ORDERED: PROPOFOL 100 ML ONE (16:15)
[2018-12-15] MEDS ORDERED: ALBUMIN HUMAN 25% 200 ML ONE (16:15)
[2018-12-15] MEDS ORDERED: CA CHLORIDE (GM) 10% 10 ML INJ ONE (16:15)
[2018-12-15] MEDS ORDERED: ROCURONIUM 50 MG INJ ONE (16:15)
[2018-12-15] MEDS ORDERED: CA CHLORIDE 10% 10 ML SYRINGE ONE (16:15)
[2018-12-15] MEDS ORDERED: PROPOFOL 40 ML ONE (16:15)
[2018-12-15] MEDS ORDERED: PHENYLephrine (100 MCG/ML) 5ML SYG ONE (16:21)
[2018-12-15] MEDS ORDERED: BACITRACIN/POLYMYXIN 28.35 GM OINT TOP ONE (16:48)
--- NOTE | 2018-12-15 17:15 | PREAC ---
Date/Time of Note Date/Time of Note DATE: 12/15/18 TIME: 16:33 Anesthesia Eval and Record Evaluation Time Pre-Procedure Interview DATE: 12/15/18 TIME: 1321 EMERGENT CRASH SURGERY - POST dated Preop summary due to zero time prior to OR transport Age 73 Sex male NPO: 8 hrs Preoperative diagnosis acute, severe intracerebral hemorrhage Planned procedure emergent R craniotomy Past Medical History Past Medical History: Includes Cardio: HTN, CAD Endo: Diabetes Pulm: Smoking Hx Neuro: CVA, Other (severe acute SAH) Heme: Anemia, Other (pt was ) Surgery & Anesthesia Issues Aspiration risk Meds Anticoagulation: No Beta Allyn within 24 hr: No Reason Beta Allyn not given: Pt. not on B-Allyn Reported Medications Cyanocobalamin* (Vitamin B12*) 500 Mcg Tab, 500 MCG PO DAILY, TAB 12/15/18 Vitamin E Mixed* (Vitamin E*) 400 Unit Capsule, 400 UNIT PO DAILY, CAP 12/15/18 Ergocalciferol (Vitamin D2) (VITAMIN D2) 50,000 Unit Capsule, 92678 UNIT PO Q7D, CAP 12/15/18 Ranitidine Hcl* (Zantac*) 150 Mg Tablet, 150 MG PO HS, #30 TAB 12/15/18 Levocetirizine Dihydrochloride (Xyzal) 5 Mg Tablet, 5 MG PO QPM, TAB 12/15/18 Zolpidem Tartrate* (Zolpidem Tartrate*) 5 Mg Tablet, 5 MG PO QHS PRN for INSOMNIA, #30 TAB 12/15/18 Esomeprazole Mag Trihydrate (Nexium) 40 Mg Capsule.dr, 40 MG PO DAILY, #30 CAP 12/15/18 Memantine* (Namenda* XR) 7 Mg Cap.spr.24, 7 MG PO DAILY, #30 TAB 12/15/18 Losartan-Hydrochlorothiazide (Losartan-HCTZ) 50-12.5 Mg Tab, 1 TAB PO DAILY, TAB 12/15/18 Sitagliptin* (Januvia*) 50 Mg Tablet, 50 MG PO DAILY, #30 TAB 12/15/18 Hydralazine Hcl* (Hydralazine Hcl*) 25 Mg Tab, 25 MG PO Q6H PRN for SBP>150, #60 TAB 12/15/18 Glimepiride* (Glimepiride*) 1 Mg Tablet, 1 MG PO WITH BREAKFAST, TAB 12/15/18 Fenofibrate, Micronized (Fenofibrate) 134 Mg Capsule, 134 MG PO DAILY, CAP 12/15/18 Prasugrel Hydrochloride* (Effient*) 5 Mg Tablet, 5 MG PO DAILY, TAB 12/15/18 Docusate Sodium* (Dok*) 250 Mg Capsule, 250 MG PO TID, #60 CAP 12/15/18 Diltiazem Hcl* (Cardizem CD*) 240 Mg Cap.sr.24h, 240 MG PO DAILY, #30 CAP 12/15/18 Cyanocobalamin (Vitamin B-12) (Cyanocobalamin Injection) 1,000 Mcg/1 Ml Vial, 1000 MCG IJ Q WEEK, VIAL 12/15/18 Rosuvastatin Calcium* (Crestor*) 10 Mg Tablet, 10 MG PO QHS, #30 TAB 12/15/18 Clonazepam* (Clonazepam*) 1 Mg Tablet, 1 MG PO BID PRN for ANXIETY, TAB 12/15/18 Tadalafil (Cialis) 5 Mg Tablet, 5 MG PO DAILY, TAB 12/15/18 Celecoxib* (Celebrex*) 200 Mg Capsule, 200 MG PO BID, CAP 12/15/18 Discontinued Reported Medications Ranitidine Hcl* (Ranitidine Hcl*) 150 Mg Tablet, 150 MG PO HS, #30 TAB 12/15/18 Meclizine Hcl* (Meclizine Hcl*) 25 Mg Tablet, 25 MG PO TID, TAB 09/27/15 Clonazepam* (Clonazepam*) 1 Mg Tablet, 1 MG PO BID PRN for ANXIETY, TAB 09/27/15 Cetirizine Hcl* (Cetirizine Hcl*) 10 Mg Tablet, 10 MG PO DAILY, #30 TAB 09/27/15 Fenofibrate Nanocrystallized* (Fenofibrate*) 145 Mg Tablet, 134 MG PO DAILY, TAB 09/27/15 Albuterol Sulfate* (Albuterol Sulfate* HFA) 8.5 Gm Hfa.aer.ad, 1-2 PUFF INH BID PRN for WHEEZING AND SOB, #1 INHALER 09/27/15 Diltiazem Hcl (DILTIAZEM 24HR CD) 240 Mg Cap.er.24h, 240 MG PO, CAP 09/27/15 Diclofenac Sodium* (Voltaren* Gel) 1% -100 Gm Gel, 2 GM TOP BID, #1 TUB 09/27/15 Ranitidine Hcl* (Ranitidine Hcl*) 150 Mg Tablet, 150 MG PO DAILY, TAB 09/27/15 Montelukast Sodium* (Singulair*) 10 Mg Tablet, 10 MG PO QHS, #30 TAB 09/27/15 Rosuvastatin Calcium* (Crestor*) 10 Mg Tablet, 10 MG PO QHS, #30 TAB 09/27/15 Current Medications IV Flush (NS 3 ml) 3 ml PER PROTOCOL IV ; Start 12/15/18 at 13:00 Hydromorphone HCl (Dilaudid) 0.5 mg Q4H PRN IV .SEVERE PAIN 7-10; Start 12/15/18 at 13:00 Levetiracetam 100 ml @ 400 mls/hr BID IVPB ; Start 12/15/18 at 14:00 Lorazepam (Ativan) 1 mg Q6H PRN IV seizure; Start 12/15/18 at 15:30 Meds reviewed: Yes Allergies Coded Allergies: Penicillins (Unverified Allergy, Unknown, 12/15/18) aspirin (Unverified Allergy, Unknown, 12/15/18) ASPIRIN/SALICYLATES Allergies Reviewed: Yes Labs/Studies Labs Reviewed: Reviewed by anesthesiologist Result Diagram: 12/15/18 1114 12/15/18 1114 Laboratory Tests 12/15/18 11:14 Blood Bank Test 12/15/18 13:05 Antibody Screen NEGATIVE Blood Product Summary Counts Blood Type A NEGATIVE test: N/A Studies: ECG, CXR Pre-procedure Exam Last vitals Vital Signs Date Temp Pulse Resp B/P (MAP) Pulse Ox O2 O2 Flow FiO2 Time Delivery Rate 12/15/18 115 20 133/68 100 Nasal 13:24 (89) Cannula 12/15/18 4.0 13:00 12/15/18 96.3 11:10 Airway: Adequate mouth opening, Adequate thyromental dist Mallampati: Mallampati III Teeth: Normal Lung: Normal Heart: Normal ASA Physical Status ASA physical status: 4 Emergency: E Planned Anesthetic General/MAC: ETT, A Line, CVP Planned Pain Management Parenteral pain med, Local by surgeon Pre-operative Attestations Prior to commencing anesthesia and surgery, the patient was re-evaluated, there was verification of: *The patient's identity *The results of appropriate recent lab work and preoperative vital signs *The above evaluation not changing prior to induction *Anesthetic plan, risk benefits, alternative and complications discussed with patient/family; questions answered; patient/family understands, accepts and wishes to proceed. MAZIN AZUL MD Dec 15, 2018 16:43
[2018-12-15] MEDS ORDERED: LEVALBUTEROL (NEB) 1.25 MG/0.5 ML AMP HHN PRN (17:30)
[2018-12-15] MEDS ORDERED: METOCLOPRAMIDE 10 MG INJ IV PRN (17:30)
[2018-12-15] MEDS ORDERED: DIPHENHYDRAMINE 50 MG INJ IV PRN (17:30)
[2018-12-15] MEDS ORDERED: MIDAZOLAM 1 MG/ML 2 ML INJ IV PRN (17:30)
[2018-12-15] MEDS ORDERED: FENTAnyl 50 MCG/ML VIAL IV PRN ×2 (17:30)
[2018-12-15] MEDS ORDERED: IPRATROPIUM (NEB) 0.5 MG/2.5 ML AMP HHN PRN (17:30)
[2018-12-15] MEDS ORDERED: hydrALAzine 20 MG INJ IV PRN (17:30)
[2018-12-15] MEDS ORDERED: ONDANSETRON 4 MG INJ IV PRN ×2 (17:30→18:00)
[2018-12-15] MEDS ORDERED: NALOXONE (0.4 MG/ML) INJ IV PRN (18:00)
--- NOTE | 2018-12-15 18:12 | OPR ---
Date/Time of Note Date/Time of Note DATE: 12/15/18 TIME: 18:12 Operative Report Preoperative Diagnosis Please see below. Postoperative Diagnosis Please see below. Operation/Procedure Performed Please see below. Surgeon see signature line Cotton Puller None Anesthesia Type: general Estimated Blood Loss: 10 - 50 ml's (50cc) Transfusion Platelets Specimen Please see below. Grafts/Implants Please see below. Tubes/Drains Please see below. Complications none Pt Condition Post Procedure: critical Disposition: other (ICU) Procedure Description Date of operation: 12/15/2018 Operating Surgeon: Andrae Henderson MD Preoperative diagnosis: Large right frontoparietal spontaneous intraparenchymal hematoma with intraventricular hemorrhage Postoperative diagnosis: Large right frontoparietal spontaneous intraparenchymal hematoma with intraventricular hemorrhage Procedures performed: 1. Right frontoparietal craniotomy for evacuation of intraparenchymal hematoma 2. Left frontal external ventriculostomy drain placement 3. Intraoperative microscope with microdissection Indications for procedure: Please look at the inpatient consultation note for full set of indications. Description of operative procedure: The patient was brought emergently to the operating room and placed supine on the operating table. After general anesthesia was obtained, his head was placed on a doughnut. All pressure points were noted and padded appropriately. He had just been given 50 g of mannitol. The left Samaria's point was located in a small strip of hair was shaven. A small linear incision was marked at the left Chloe's point. A small strip of hair was shaven posteriorly close to the left parietal boss. After the scalp was prepped and draped under standard sterile fashion, local anesthetics were infiltrated into the marked incision. The skin was then incised down to the level of the skull. The self-retaining retractor was placed in position. The hand-held drill was used to create a bur hole down to the level of the dura. The dura was then opened up sharply with the trocar. The Bactiseal ventriculostomy catheter was then inserted to a depth of 5 cm pointing towards the ipsilateral medial canthus and ipsilateral external auditory meatus. A pop through the ependymal surface was felt. Blood-tinged CSF was seen coming out under increased pressure. The ventriculostomy catheter was then tunneled under the scalp and brought out of the skin at the left parietal boss area. The ventriculostomy catheter tip was then capped. The small left frontal incision was reapproximated with a simple running nylon 3-0 suture. The ventriculostomy catheter was secured at its exit site to the scalp with a suture. The ventriculostomy catheter was then connected to a ventriculostomy drain bag and placed at 10 cm above the level of foramen of Carl. The left frontal incision area and the ventriculostomy exit site were then covered by Tegaderm dressings. The ventriculostomy drain was further secured in position to the scalp with Tegaderms. Attention was now paid to the right side. The patient's scalp was then rotated towards the left exposing the right kong-scalp. A curvilinear incision (a modified Tobias's incision) was marked over the right frontal temporoparietal area going close to midline and just behind the hairline. A strip of hair was shaven around the marked incision site. After the skin was prepped and draped under standard sterile fashion, local anesthetics were infiltrated into the marked incision. The skin was then incised down to the level of the skull. The scalp flap was then rotated anteriorly and kept in place with fishhooks with the full that lap underneath the scalp flap. The purchasing supervisor was used to create 2 bur holes down to the level of the dura, one over the most anterior (anterior to the coronal suture) and one over the most posterior (posterior to the coronal suture) exposed part of the bone just off of midline. The dura was not dissected off of the overlying skull. The craniotome was used to complete the craniotomy over the exposed bone. The bone flap was then removed. The opera ting microscope was brought into the field. The underlying dura appeared to be tense. In order to minimize herniation of the edematous underlying brain through the dural opening, a small dural opening was made over the anterior part of the exposed dura by opening the dura in a semi-cruciate fashion. The dural sleeves were then retracted with Nurolon sutures. Obvious blood that came right underneath the cortical surface could be seen over the exposed cortex. A small corticectomy over the very thin remaining layer of cortex was then made. A very large intraparenchymal blood clot was encountered. The blood clot was then removed piece by piece in a stepwise fashion from the center of the blood clot working towards the borders of the blood clot until normal white brain tissue was encountered at each of the borders. By the end of the hematoma evacuation, a very large cavity was seen where the very large hematoma was previously located. Complete evacuation of the hematoma was obtained. Several pieces of the hematoma were sent off the table for permanent pathology. Complete hemostasis was obtained. The hematoma cavity was copiously irrigated with antibiotic solution. Pieces of Gelfoam with thrombin were then placed inside the large hematoma evacuation cavity to help minimize refilling of the cavity with blood over time. A large round MONSERRAT drain was placed inside the intraparenchymal hematoma evacuation cavity and the other end of it was brought out the skin away from the incision. The dura was then reapproximated with interrupted Nurolon sutures. The dural edges at the craniotomy site were then lined up with hemostatic agents including Gelfoam with thrombin. The bone flap was then reattached to the skull with titanium plates and screws. The wound was copiously irrigated with antibiotic solution. The scalp was then reapproximated at the level of the galea with interrupted sutures. The skin was reapproximated with lisa. The large drain was then secured to the skin with a suture at its exit site and the drain was then connected to a bile drain back for passive drainage. A thin film of Neosporin ointment was placed over the incision site. The patient was then transported to the ICU in stable condition. Estimated blood loss: 50 cc Blood products administered: Platelets Packs/drains: 1. Left frontal ventriculostomy drain 2. Right frontal intraparenchymal drain Type of anesthesia: General Incision: 1. Left Chloe 2. Right frontoparietal temporal Skin closure: 1. Left frontal: Nylon 3-0 2. Right frontoparietal temporal: Lisa Wound classification: Clean Specimen removed: Right frontal intraparenchymal hematoma Patient's condition: Critical Prognosis: Guarded ANDRAE HENDERSON MD Dec 15, 2018 18:12
--- NOTE | 2018-12-15 18:12 | SIPON ---
Date/Time of Note Date/Time of Note DATE: 12/15/18 TIME: 18:10 Operative Report Preoperative Diagnosis Large right frontoparietal ICH with IVH Postoperative Diagnosis Same as above Operation/Procedure Performed Right frontoparietal craniotomy for evacuation of ICH Left frontal ventriculostomy Surgeon see signature line field research assistant None Anesthesia: general Estimated blood loss: 10 - 50 ml's Transfusion Required Platelets Specimen right frontal hematoma Grafts/Implants none Complications none BRYN PINK MD Dec 15, 2018 18:12
[2018-12-15] MEDS: LABETALOL HCL 20MG INJ IV PRN ×2 (18:44→19:01)
[2018-12-15] MEDS: CEFAZOLIN 1 GM/50 ML (PMX) 50 ML IVPB SCH (18:58)
[2018-12-15] MEDS: PROPOFOL 100 ML IV SCH ×2 (19:02→20:03)
[2018-12-15] MEDS: LEVETIRACETAM 500 MG (PMX) 100 ML IVPB SCH ×2 (19:57→23:00)
[2018-12-15] MEDS ORDERED: niCARdipine 25 MG in SOD CHLORIDE 0.9% 240 ML IV STA (20:25)
[2018-12-15] MEDS ORDERED: NACL 3% 500 ML IV STA (21:08)
[2018-12-15] MEDS ORDERED: FENTAnyl (DRIP) 1000 mcg/100mL 100 ML IV STA (21:08)
[2018-12-15] MEDS: NS + KCL 20 MEQ 1,000 ML IV SCH (21:24)
[2018-12-15] MEDS: NEOMYC/POLYMYX/BACIT 30 GM OINT TOP SCH (22:09)
--- NOTE | 2018-12-15 22:36 | PAC ---
Date/Time of Note Date/Time of Note DATE: 12/15/18 TIME: 22:36 Post-Anesthesia Notes Post-Anesthesia Note Last documented vital signs Vital Signs Date Temp Pulse Resp B/P (MAP) Pulse Ox O2 O2 Flow FiO2 Time Delivery Rate 12/15/18 93 20:52 12/15/18 98.7 19 139/47 98 Mechanical 20:00 (77) Ventilator 12/15/18 70 18:10 12/15/18 4.0 13:00 Activity: Other (sedated) Respiratory function: Other Cardiovascular function: WNL Mental status: Other (sedated) Pain reasonably controlled: Yes Hydration appropriate: Yes Nausea/Vomiting absent: Yes MAZIN AZUL MD Dec 15, 2018 22:36
[2018-12-16] VITALS (75 sets, daily range): BP systolic 96–176; BP diastolic 42–88; PULSE 69–100; RESP 18–24
[2018-12-16] MEDS: niCARdipine 50 MG in SOD CHLORIDE 0.9% 480 ML IV SCH (00:29)
[2018-12-16] MEDS: CEFAZOLIN 1 GM/50 ML (PMX) 50 ML IVPB SCH ×2 (02:24→08:39)
[2018-12-16] MEDS: PROPOFOL 100 ML IV SCH ×3 (02:24→16:41)
[2018-12-16] MEDS: PANTOPRAZOLE 40 MG INJ IV SCH (05:31)
[2018-12-16] MEDS: NEOMYC/POLYMYX/BACIT 30 GM OINT TOP SCH ×2 (08:31→20:52)
[2018-12-16] MEDS: HYDROmorphONE 0.5 MG/0.5 ML SYG IV PRN ×2 (08:45→15:44)
[2018-12-16] MEDS: LEVETIRACETAM 500 MG (PMX) 100 ML IVPB SCH ×2 (09:00→20:52)
--- NOTE | 2018-12-16 10:12 | PN ---
Date/Time of Note Date/Time of Note DATE: 12/16/18 TIME: 10:11 Copies To: Assessment/Plan Date of progress note: 12/16/2018 The patient is postop day 1 status post emergent right frontoparietal craniotomy for evacuation of intraparenchymal hematoma and left frontal external ventriculostomy drain placement. Patient is in the ICU overall hemodynamically stable. His blood pressure is being managed with Cardene drip being titrated up and down as needed to keep his systolic blood pressure less than 160. The patient's ventriculostomy is at the level of foramen of Monro and has been putting out drainage around 5-8 cc every hour. The ventriculostomy drainage that was more bloody is now becoming more serous. His right frontal intraparenchymal drain has put out approximately 120 cc of bloody output since being transferred to the ICU. His scalp incisions are clean dry and intact. The patient is intubated and sedated on propofol and fentanyl. He does not open his eyes to voice or pain. His pupils are pinpoint bilaterally. He appears to have a cough and a gag reflex. There is no movement to pain involving the upper and lower extremities on sedation. However the nurse tells me that off sedation earlier this morning there was some noted movement of the lower extremities. The patient is postop CT shows an evacuation cavity in the anterior right frontal area with the intraparenchymal drain in place. There is some recurrence of hematoma in the posterior frontal parietal region. There is a left frontal ventriculostomy drain with the tip at the level of the foramen of Carl. The right to left midline shift is increased by a few millimeters compared to the initial CT of the head. However part of the shift may also be related to CSF drainage via the ventriculostomy drain. 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 The patient was started on hypertonic saline overnight to further increase his serum sodium close to 150. The last sodium was 149 and his IV fluids have now been switched back to normal saline with a goal of keeping his serum sodium between 145-150. The patient also was noted to have dropped his hemoglobin from 12.3 to 7.4. The patient's EBL was 100 cc and the drainage from the intraparenchymal drain has been around 120 cc. Part of the drop in the hemoglobin may be related to hemodilution but not all the drop in the hemoglobin can be attributed to hemodilution only. Therefore the patient is currently receiving 2 units of PRBC given his critically ill status and need for optimal cerebral perfusion. Ventriculostomy will be continued. He will be continued on Keppra for possible seizures. Patient is also being co-managed by pulmonary and the hospitalist service. I have updated one of the patient's nephews postoperatively and will be happy to update any other family members during the day. BRYN PINK MD Dec 16, 2018 10:12
[2018-12-16] MEDS: NS + KCL 20 MEQ 1,000 ML IV SCH ×2 (14:28→20:51)
--- NOTE | 2018-12-16 14:49 | PN ---
Date/Time of Note Date/Time of Note DATE: 12/16/18 TIME: 14:44 Assessment/Plan VTE Prophylaxis Risk score (from Ns)>0 risk: 14 SCD applied (from [facility]): Yes Pharmacological prophylaxis: NA/contraindicated, heparin Pharm contraindication: bleeding Lines/Catheters IV C[facility]ter Type (from [facility]): Central Line Central line still needed: Yes Urinary Cath still in place: Yes Reason Cath still needed: urinary retention Assessment/Plan Hospital Course 73 yo male who presents with obtundation acute and found to have hemorrhagic stroke/ICH with severe hypertension. Right frontoparietal craniotomy for evacuation of ICH and left frontal ventriculostomy NEURO: ICH - Management per Dr Ruby - s/p Right frontoparietal craniotomy for evacuation of ICH and Left frontal ventriculostomy 12/15 - HOB > 30 - Na goal 145-150 - Keppra ppx CV: hypertension - Cardene drip PULM: Acute respiratory failure - MV per pulmonary RENAL CKD III - Monitor creatine Therapeutic hypernatremia HEME Acute blood loss anemia: - PRBCs transfusion today, then PRN DNR Result Diagram: 12/16/18 1337 12/16/18 1337 Results 24hrs Laboratory Tests Test 12/15/18 19:30 12/15/18 21:30 12/15/18 22:30 12/16/18 04:20 Blood Gas Blood arterial Blood arterial Specimen Source Arterial Blood 12/15/2018 7:29:18 12/15/2018 10:25:0 Date Drawn PM 9 PM Arterial Blood 7.327 L 7.447 pH (Temp corrected) Arterial Blood 41.4 30.5 L pCO2 (Temp correct) Arterial Blood 166.5 H 122.4 H pO2 (Temp corrected) Arterial Blood 21.2 L 20.6 L HCO3 Arterial Blood -4.5 L -2.8 Base Excess Arterial Blood 98.5 97.9 Oxygen Saturatio n Vipin Test N/A N/A Arterial Blood A-Line A-Line Gas Puncture Site Arterial 0.2 0.3 Blood Carboxyhem oglobin Arterial Blood 0.5 0.5 Methemoglobin Blood Gas A-a O2 288.1 H 199.8 H Differential Oxyhemoglobin 97.8 97.1 Percent Blood Gas 37.0 37.0 Temperature Blood Gas 16.0 20.0 Respiration Rate Blood Gas Actual 19 20 Respiration Rate Blood Gas VENT - AC VENT - AC Modality FiO2 70.0 50.0 Blood Gas Tidal 550.0 550.0 Volume Blood Gas Low 5.0 5.0 PEEP Setting Blood Gas 26.0 24.0 Inspiratory Pressure Blood Gas SUZETTE KEBEDE RCP Notified Whom Blood Gas 12/15/2018 7:40:59 12/15/2018 10:37:0 Notified Time PM 1 PM Sodium Level 144 149 H Potassium Level 4.2 3.7 Chloride Level 109 114 H Carbon Dioxide 22 22 Level Anion Gap 13 13 Blood Urea 21 H 20 Nitrogen Creatinine 1.29 H 1.45 H Est Glomerular Filtrat Rate mL/min Glucose Level 124 # 116 Calcium Level 10.3 H 9.9 White Blood 7.1 # Count Red Blood Count 2.56 #L Hemoglobin 7.5 #L Hematocrit 22.5 #L Mean Corpuscular 87.9 Volume Mean Corpuscular 29.3 Hemoglobin Mean Corpuscular 33.3 Hemoglobin Yolis nt Red Cell 13.7 Distribution Width Platelet Count 215 # Mean Platelet 10.2 Volume Immature 0.300 Granulocytes % Neutrophils % Segmented 57 Neutrophils % (Manual) Band Neutrophils 33 H % (Manual) Lymphocytes % Lymphocytes % 6 L (Manual) Reactive 1 H Lymphocytes % (Manual) Monocytes % Monocytes % 3 (Manual) Eosinophils % Basophils % Nucleated Red 0.0 Blood Cells % Immature 0.020 Granulocytes # Neutrophils # Neutrophils # 4.2 (Manual) Band Neutrophils 2.3 H # Lymphocytes 0.4 L (Manual) Lymphocytes # Reactive 0.0 Lymphocytes # Monocytes # Monocytes # 0.2 L (Manual) Eosinophils # Basophils # Nucleated Red Blood Cells # Platelet NORMAL Estimate Poikilocytosis 1+ Anisocytosis 1+ Microcytosis 1+ Ovalocytes 1+ Acanthocytes 1+ Schistocytes 1+ Hemoglobin A1c 5.9 Total Bilirubin 0.2 Direct Bilirubin 0.00 Indirect 0.2 Bilirubin Aspartate Amino 27 Transf (AST/SGOT ) Alanine 19 Aminotransferase (ALT/SGPT) Alkaline 34 L Phosphatase Total Protein 6.1 Albumin 3.7 Globulin 2.40 Albumin/Globulin 1.54 Ratio Test 12/16/18 05:35 12/16/18 13:37 White Blood 6.7 5.9 Count Red Blood Count 2.54 L 3.37 #L Hemoglobin 7.4 L 9.8 #L Hematocrit 22.6 L 29.2 #L Mean Corpuscular 89.0 86.6 Volume Mean Corpuscular 29.1 29.1 Hemoglobin Mean Corpuscular 32.7 33.6 Hemoglobin Yolis nt Red Cell 13.7 15.2 H Distribution Width Platelet Count 207 181 Mean Platelet 10.1 10.5 H Volume Immature 0.500 H 0.200 Granulocytes % Neutrophils % 87.5 H Segmented 63 Neutrophils % (Manual) Band Neutrophils 32 H % (Manual) Lymphocytes % 6.5 L Lymphocytes % 2 L (Manual) Monocytes % 5.3 Monocytes % 1 (Manual) Eosinophils % 0.0 Eosinophils % 1 (Manual) Basophils % 0.2 Basophils % 1 (Manual) Nucleated Red 0.0 0.0 Blood Cells % Immature 0.030 0.010 Granulocytes # Neutrophils # 5.8 Neutrophils # 4.4 (Manual) Band Neutrophils 2.1 H # Lymphocytes 0.1 L (Manual) Lymphocytes # 0.4 L Monocytes # 0.4 Monocytes # 0.0 L (Manual) Eosinophils # 0.0 Basophils # 0.0 Basophils # 0.0 (Manual) Nucleated Red 0.0 Blood Cells # Platelet NORMAL Estimate Poikilocytosis 1+ Anisocytosis 2+ Microcytosis 2+ Ovalocytes 1+ Sodium Level 149 H Subjective 24 Hr Interval Summary Free Text/Dictation Patient went to OR yesterday for Right frontoparietal craniotomy for evacuation of ICH and left frontal ventriculostomy Started on hypertonic saline Cardene drip Propofol and fentanyl as he was bucking vent Exam/Review of Systems Exam Vitals Vital Signs Date Temp Pulse Resp B/P (MAP) Pulse Ox O2 O2 Flow FiO2 Time Delivery Rate 12/16/18 72 12:00 12/16/18 99.7 20 100 Mechanical 12:00 Ventilator 12/16/18 40 08:00 12/15/18 4.0 13:00 Intake and Output 12/15/18 12/15/18 12/16/18 1515:00 23:00 07:00 IntakeIntake Total 334 ml 2635.0 ml 1267.75 ml OutputOutput Total 1350 ml 822 ml BalanceBalance 334 ml 1285.0 ml 445.75 ml Exam EVD in place Intubated, sedated Lungs clear RRR Abdomen soft nt nd Ext warm Results Results 24hrs Laboratory Tests Test 12/15/18 19:30 12/15/18 21:30 12/15/18 22:30 12/16/18 04:20 Blood Gas Blood arterial Blood arterial Specimen Source Arterial Blood 12/15/2018 7:29:18 12/15/2018 10:25:0 Date Drawn PM 9 PM Arterial Blood 7.327 L 7.447 pH (Temp corrected) Arterial Blood 41.4 30.5 L pCO2 (Temp correct) Arterial Blood 166.5 H 122.4 H pO2 (Temp corrected) Arterial Blood 21.2 L 20.6 L HCO3 Arterial Blood -4.5 L -2.8 Base Excess Arterial Blood 98.5 97.9 Oxygen Saturatio n Vipin Test N/A N/A Arterial Blood A-Line A-Line Gas Puncture Site Arterial 0.2 0.3 Blood Carboxyhem oglobin Arterial Blood 0.5 0.5 Methemoglobin Blood Gas A-a O2 288.1 H 199.8 H Differential Oxyhemoglobin 97.8 97.1 Percent Blood Gas 37.0 37.0 Temperature Blood Gas 16.0 20.0 Respiration Rate Blood Gas Actual 19 20 Respiration Rate Blood Gas VENT - AC VENT - AC Modality FiO2 70.0 50.0 Blood Gas Tidal 550.0 550.0 Volume Blood Gas Low 5.0 5.0 PEEP Setting Blood Gas 26.0 24.0 Inspiratory Pressure Blood Gas SUZETTE KEBEDE RCP Notified Whom Blood Gas 12/15/2018 7:40:59 12/15/2018 10:37:0 Notified Time PM 1 PM Sodium Level 144 149 H Potassium Level 4.2 3.7 Chloride Level 109 114 H Carbon Dioxide 22 22 Level Anion Gap 13 13 Blood Urea 21 H 20 Nitrogen Creatinine 1.29 H 1.45 H Est Glomerular Filtrat Rate mL/min Glucose Level 124 # 116 Calcium Level 10.3 H 9.9 White Blood 7.1 # Count Red Blood Count 2.56 #L Hemoglobin 7.5 #L Hematocrit 22.5 #L Mean Corpuscular 87.9 Volume Mean Corpuscular 29.3 Hemoglobin Mean Corpuscular 33.3 Hemoglobin Yolis nt Red Cell 13.7 Distribution Width Platelet Count 215 # Mean Platelet 10.2 Volume Immature 0.300 Granulocytes % Neutrophils % Segmented 57 Neutrophils % (Manual) Band Neutrophils 33 H % (Manual) Lymphocytes % Lymphocytes % 6 L (Manual) Reactive 1 H Lymphocytes % (Manual) Monocytes % Monocytes % 3 (Manual) Eosinophils % Basophils % Nucleated Red 0.0 Blood Cells % Immature 0.020 Granulocytes # Neutrophils # Neutrophils # 4.2 (Manual) Band Neutrophils 2.3 H # Lymphocytes 0.4 L (Manual) Lymphocytes # Reactive 0.0 Lymphocytes # Monocytes # Monocytes # 0.2 L (Manual) Eosinophils # Basophils # Nucleated Red Blood Cells # Platelet NORMAL Estimate Poikilocytosis 1+ Anisocytosis 1+ Microcytosis 1+ Ovalocytes 1+ Acanthocytes 1+ Schistocytes 1+ Hemoglobin A1c 5.9 Total Bilirubin 0.2 Direct Bilirubin 0.00 Indirect 0.2 Bilirubin Aspartate Amino 27 Transf (AST/SGOT ) Alanine 19 Aminotransferase (ALT/SGPT) Alkaline 34 L Phosphatase Total Protein 6.1 Albumin 3.7 Globulin 2.40 Albumin/Globulin 1.54 Ratio Test 12/16/18 05:35 12/16/18 13:37 White Blood 6.7 5.9 Count Red Blood Count 2.54 L 3.37 #L Hemoglobin 7.4 L 9.8 #L Hematocrit 22.6 L 29.2 #L Mean Corpuscular 89.0 86.6 Volume Mean Corpuscular 29.1 29.1 Hemoglobin Mean Corpuscular 32.7 33.6 Hemoglobin Yolis nt Red Cell 13.7 15.2 H Distribution Width Platelet Count 207 181 Mean Platelet 10.1 10.5 H Volume Immature 0.500 H 0.200 Granulocytes % Neutrophils % 87.5 H Segmented 63 Neutrophils % (Manual) Band Neutrophils 32 H % (Manual) Lymphocytes % 6.5 L Lymphocytes % 2 L (Manual) Monocytes % 5.3 Monocytes % 1 (Manual) Eosinophils % 0.0 Eosinophils % 1 (Manual) Basophils % 0.2 Basophils % 1 (Manual) Nucleated Red 0.0 0.0 Blood Cells % Immature 0.030 0.010 Granulocytes # Neutrophils # 5.8 Neutrophils # 4.4 (Manual) Band Neutrophils 2.1 H # Lymphocytes 0.1 L (Manual) Lymphocytes # 0.4 L Monocytes # 0.4 Monocytes # 0.0 L (Manual) Eosinophils # 0.0 Basophils # 0.0 Basophils # 0.0 (Manual) Nucleated Red 0.0 Blood Cells # Platelet NORMAL Estimate Poikilocytosis 1+ Anisocytosis 2+ Microcytosis 2+ Ovalocytes 1+ Sodium Level 149 H Medications Medication Current Medications Levetiracetam 100 ml @ 400 mls/hr BID IVPB Last administered on 12/16/18 09:00; Admin Dose 400 MLS/HR; Start 12/15/18 at 14:00 Hydromorphone HCl (Dilaudid) 0.2 mg Q1H PRN IV .BREAKTHROUGH PAIN Last administered on 12/16/18 08:45; Admin Dose 0.2 MG; Start 12/15/18 at 18:00 Ondansetron HCl (Zofran Inj) 4 mg Q6H PRN IV NAUSEA/VOMITING; Start 12/15/18 at 18:00 Pantoprazole (Protonix Iv) 40 mg DAILY@06 IV Last administered on 12/16/18 05:31; Admin Dose 40 MG; Start 12/16/18 at 06:00 Naloxone HCl (Narcan) 0.2 mg Q2M PRN IV .RR 8 BREATHS/MIN OR LESS; Start 12/15/18 at 18:00 Potassium Chloride/Sodium Chloride 1,000 ml @ 100 mls/hr Q10H IV Last administered on 12/16/18 14:28; Admin Dose 100 MLS/HR; Start 12/15/18 at 19:30 Neomycin/ Polymyxin/ Bacitracin (Neosporin Topical Oint) 1 applic BID TOP Last administered on 12/16/18 08:31; Admin Dose 1 APPLIC; Start 12/15/18 at 21:00 Propofol 100 ml @ 2.25 mls/hr Q12H IV Last administered on 12/16/18 08:31; Admin Dose 11.25 MLS/HR; Start 12/15/18 at 19:00 Fentanyl 100 ml @ 2.5 mls/hr TITRATE STAT IV Last administered on 12/15/18 22:09; Admin Dose 2.5 MLS/HR; Start 12/15/18 at 21:08; Stop 12/17/18 at 13:07 Nicardipine HCl 50 mg/Sodium Chloride 500 ml @ 0 mls/hr TITRATE IV Last administered on 12/16/18 00:29; Admin Dose 100 MLS/HR; Start 12/16/18 at 12:00 CASSANDRA WHITE MD Dec 16, 2018 14:49
--- NOTE | 2018-12-16 15:29 | CONS ---
DATE OF ADMISSION: 12/15/2018 DATE OF CONSULTATION: REASON FOR CONSULTATION: Ventilator management. Thank you, Dr. Patel, for this consultation. HISTORY OF PRESENT ILLNESS: This is an unfortunate 73-year-old gentleman found obtunded at home by h is family and brought to the emergency room for further evaluation, found to have pinpoint pupils, un responsive to Narcan with CT brain demonstrating acute large right frontal and parietal lobe hematoma with significant vasogenic edema and midline shift. The patient had no history of trauma. He under went emergent evacuation of intraparenchymal hematoma, now has ventriculostomy and drain in place. C ontinues hemodynamic monitoring with arterial line. Of note, patient was previously on blood thinner s per chart. ALLERGIES 1. PENICILLIN. 2. ASPIRIN. SYSTEMS REVIEW: A 12-point review of systems unable to perform. PHYSICAL EXAMINATION: GENERAL: Elderly-appearing gentleman, intubated on mechanical ventilation, appears comfortable at [facility], no acute distress. VITAL SIGNS: Currently afebrile, pulse is 76, blood pressure 116/43, O2 saturation 96% on current me chanical ventilation. NECK: Supple. No JVD or lymphadenopathy. CARDIAC: S1, S2, no added sounds or murmurs. CHEST: Diminished air entry bilaterally. ABDOMEN: Soft, nontender. No guarding or rebound. EXTREMITIES: No cyanosis, clubbing, 1+ edema. NEUROLOGIC: Currently unable to assess. LABORATORIES: White count 6.7, hemoglobin 7.4, platelets of 207. BUN 20, creatinine 1.45. INR 0.96 . Arterial blood gas pH 7.44, pCO2 of 30, pO2 122. DIAGNOSTIC STUDIES: Chest x-ray shows no significant pulmonary abnormalities, elevated right hemidia phragm. CT brain postop demonstrates evidence of craniotomy and partial evacuation of hematoma with interval placement of ventriculostomy catheter. IMPRESSION AND PLAN: 1. Intraparenchymal hemorrhage, now status post evacuation. 2. Encephalopathy secondary to above. 3. Significant anemia, questionable gastrointestinal bleed. Hemoglobin on admission was 12.3. 4. Renal insufficiency, likely prerenal. 5. Incomplete data. PLAN: 1. Continue tight blood pressure management per neurosurgery. 2. Pain control. 3. Mechanical ventilation. 4. DVT and GI prophylaxis. 5. Nasogastric tube, start tube feeding. 6. Antiepileptics. 7. Likely reassess brain imaging tomorrow and neurology recommendations. Dictated By: SAROJ HANNA MD SV/ANA Conf#: [id number] DID#: [id number] CC: CASSANDRA WHITE MD; BRYN PINK MD;*End*
--- NOTE | 2018-12-16 15:36 | CONS ---
Assessment/Plan Assessment/Plan Hospital Course 73 M c/ reported Hx of HTN, who is admitted to the [facility] ICU for management of acute cerebral hemorrhage...for which neurology is consulted.. s/p emergent neurosurgery on 12/15 P: Post-op management per neurosurgery Keppra 500mg iv bid for now Ativan iv prn prolonged seizure Strict BP control (SBP < 160) Hold antiplatelets and anticoagulants Goals of care and other management per primary Will follow clinically Consultation Date/Type/Reason Admit Date/Time Dec 15, 2018 at 11:55 Type of Consult Neurology Reason for Consultation ICH Requesting Provider: CASSANDRA WHITE MD Date/Time of Note DATE: 12/16/18 TIME: 15:35 Exam Vital Signs Vitals Vital Signs Date Temp Pulse Resp B/P (MAP) Pulse Ox O2 O2 Flow FiO2 Time Delivery Rate 12/16/18 70 19 133/64 100 Mechanical 15:00 (87) Ventilator 12/16/18 40 13:20 12/16/18 99.7 12:00 12/15/18 4.0 13:00 Intake and Output 12/15/18 12/15/18 12/16/18 1515:00 23:00 07:00 IntakeIntake Total 334 ml 2635.0 ml 1267.75 ml OutputOutput Total 1350 ml 822 ml BalanceBalance 334 ml 1285.0 ml 445.75 ml Exam PE: Gen Appearance: No Apparent Distress HEENT: Intubated; ventriculostomy.. Cardiovascular: Regular rate Abdomen: Soft Extremities: Dry NE: The patient was comatose... Cranial nerve examination was limited by mental status. Pupils were equal and reactive to light. There was no afferent pupillary defect. Funduscopic examination was limited. Face was grossly symmetric, w/ present corneal and cough reflexes. Tone was normal. Muscle bulk was normal. I did not see fasciculations. Coordination and gait testing was limited by mental status. Arm and leg reflexes were symmetric. Munoz's sign was absent. Plantar responses were flexor. PARTHA MILLER Dec 16, 2018 15:36
[2018-12-16] MEDS: hydrALAzine 20 MG INJ IV PRN (17:24)
[2018-12-16] MEDS: ACETAMINOPHEN 650MG/20.3ML CUP NGT PRN (21:19)
[2018-12-16] MEDS: FENTAnyl (DRIP) 1000 mcg/100mL 100 ML IV SCH (23:00)
[2018-12-17] VITALS (86 sets, daily range): BP systolic 109–161; BP diastolic 52–72; PULSE 57–81; RESP 19–21
[2018-12-17] MEDS: PANTOPRAZOLE 40 MG INJ IV SCH (05:55)
[2018-12-17] MEDS: PROPOFOL 100 ML IV SCH ×3 (05:55→21:27)
[2018-12-17] MEDS: NS + KCL 20 MEQ 1,000 ML IV SCH ×2 (06:30→20:20)
--- NOTE | 2018-12-17 08:51 | CONS ---
Consult Date/Type/Reason Admit Date/Time Dec 15, 2018 at 11:55 Initial Consult Date Type of Consult Pulmonary Requesting Provider: CASSANDRA WHITE MD Date/Time of Note DATE: 12/17/18 TIME: 08:50 Subjective Patient to continue sedation mechanical ventilation, ventriculostomy draining approximately 7-10 cc an hour. Tube feeding currently tolerated. Continues nicardipine for blood pressure management. Objective Vital Signs Date Temp Pulse Resp B/P (MAP) Pulse Ox O2 O2 Flow FiO2 Time Delivery Rate 12/17/18 74 20 140/69 100 Mechanical 06:00 (92) Ventilator 12/17/18 40 05:23 12/17/18 98.9 04:00 12/15/18 4.0 13:00 Intake and Output 12/16/18 12/16/18 12/17/18 1515:00 23:00 07:00 IntakeIntake Total 656.50 ml 1343.50 ml 1092.0 ml OutputOutput Total 652 ml 644 ml 398 ml BalanceBalance 4.50 ml 699.50 ml 694.0 ml Exam PHYSICAL EXAMINATION: GENERAL: Elderly-appearing gentleman, intubated on mechanical ventilation, appears comfortable at rest, no acute distress. VITAL SIGNS: Currently afebrile, pulse is 76, blood pressure 116/43, O2 saturation 96% on current mechanical ventilation. NECK: Supple. No JVD or lymphadenopathy. CARDIAC: S1, S2, no added sounds or murmurs. CHEST: Diminished air entry bilaterally. ABDOMEN: Soft, nontender. No guarding or rebound. EXTREMITIES: No cyanosis, clubbing, 1+ edema. NEUROLOGIC: Currently unable to assess. Vent Setting Ventilator Support Mode: AC Fraction of Inspired Oxygen pe: 40 Positive End Expiratory Pressu: 5.0 Results/Medications Result Diagram: 12/17/18 0415 12/17/18 0415 Results 24 hrs Laboratory Tests Test 12/16/18 13:37 12/16/18 17:44 12/17/18 00:09 12/17/18 04:15 White Blood Count 5.9 6.1 Red Blood Count 3.37 #L 3.29 L Hemoglobin 9.8 #L 9.4 L Hematocrit 29.2 #L 28.5 L Mean Corpuscular 86.6 86.6 Volume Mean Corpuscular 29.1 28.6 L Hemoglobin Mean Corpuscular 33.6 33.0 Hemoglobin Concen t Red Cell 15.2 H 15.3 H Distribution Width Platelet Count 181 170 Mean Platelet 10.5 H 10.3 Volume Immature 0.200 0.800 H Granulocytes % Neutrophils % 73.0 Segmented 68 Neutrophils % (Manual) Band Neutrophils 17 H % (Manual) Lymphocytes % 17.8 Lymphocytes % 13 L (Manual) Monocytes % 7.8 Monocytes % 2 (Manual) Eosinophils % 0.3 Basophils % 0.3 Nucleated Red 0.0 0.0 Blood Cells % Immature 0.010 0.050 H Granulocytes # Neutrophils # 4.5 Neutrophils # 4.1 (Manual) Band Neutrophils 1.0 H # Lymphocytes 0.7 L (Manual) Lymphocytes # 1.1 Monocytes # 0.5 Monocytes # 0.1 L (Manual) Eosinophils # 0.0 Basophils # 0.0 Nucleated Red 0.0 Blood Cells # Platelet Estimate NORMAL Giant Platelets 1 H Poikilocytosis 1+ Anisocytosis 2+ Microcytosis 2+ Sodium Level 149 H 146 H 146 H 147 H Potassium Level 3.4 L Chloride Level 118 H Carbon Dioxide 20 L Level Anion Gap 9 Blood Urea 21 H Nitrogen Creatinine 1.26 H Est Glomerular Filtrat Rate mL/min Glucose Level 135 Calcium Level 9.1 Phosphorus Level 1.9 L Magnesium Level 2.0 Test 12/17/18 07:00 Blood Gas Blood arterial Specimen Source Arterial Blood 12/17/2018 8:20:23 Date Drawn AM Arterial Blood pH 7.501 H (Temp corrected) Arterial Blood 25.5 L pCO2 (Temp correct) Arterial Blood 147.9 H pO2 (Temp corrected) Arterial Blood 19.5 L HCO3 Arterial Blood -2.6 Base Excess Arterial Blood 98.3 Oxygen Saturation Vipin Test N/A Arterial Blood A-Line Gas Puncture Site Arterial 0.2 Blood Carboxyhemo globin Arterial Blood 0.3 Methemoglobin Blood Gas A-a O2 108.0 H Differential Oxyhemoglobin 97.8 Percent Blood Gas 37.0 Temperature Blood Gas 20.0 Respiration Rate Blood Gas Actual 20 Respiration Rate Blood Gas VENT - AC Modality FiO2 40.0 Blood Gas Tidal 550.0 Volume Blood Gas Low 5.0 PEEP Setting Blood Gas M.DBettie Notified Whom Blood Gas 12/17/2018 8:30:53 Notified Time AM Medications Current Medications Levetiracetam 100 ml @ 400 mls/hr BID IVPB Last administered on 12/16/18 20:52; Admin Dose 400 MLS/HR; Start 12/15/18 at 14:00 Hydromorphone HCl (Dilaudid) 0.2 mg Q1H PRN IV .BREAKTHROUGH PAIN Last administered on 12/16/18 15:44; Admin Dose 0.2 MG; Start 12/15/18 at 18:00 Ondansetron HCl (Zofran Inj) 4 mg Q6H PRN IV NAUSEA/VOMITING; Start 12/15/18 at 18:00 Pantoprazole (Protonix Iv) 40 mg DAILY@06 IV Last administered on 12/17/18 05:55; Admin Dose 40 MG; Start 12/16/18 at 06:00 Naloxone HCl (Narcan) 0.2 mg Q2M PRN IV .RR 8 BREATHS/MIN OR LESS; Start 12/15/18 at 18:00 Potassium Chloride/Sodium Chloride 1,000 ml @ 100 mls/hr Q10H IV Last administered on 12/17/18 06:30; Admin Dose 100 MLS/HR; Start 12/15/18 at 19:30 Neomycin/ Polymyxin/ Bacitracin (Neosporin Topical Oint) 1 applic BID TOP Last administered on 12/16/18 20:52; Admin Dose 1 APPLIC; Start 12/15/18 at 21:00 Propofol 100 ml @ 2.25 mls/hr Q12H IV Last administered on 12/17/18 05:55; Admin Dose 9 MLS/HR; Start 12/15/18 at 19:00 Nicardipine HCl 50 mg/Sodium Chloride 500 ml @ 0 mls/hr TITRATE IV Last administered on 12/16/18 00:29; Admin Dose 100 MLS/HR; Start 12/16/18 at 12:00 Hydralazine HCl (Apresoline) 10 mg Q6H PRN IV ELEVATED BLOOD PRESSURE Last administered on 12/16/18 17:24; Admin Dose 10 MG; Start 12/16/18 at 17:00 Acetaminophen (Tylenol Liquid) 650 mg Q4H PRN NGT MILD PAIN(1-3)OR ELEVATED TEMP Last administered on 12/16/18 21:19; Admin Dose 650 MG; Start 12/16/18 at 21:00 Fentanyl 100 ml @ 2.5 mls/hr TITRATE IV Last administered on 12/16/18at 23:00; Admin Dose 5 MLS/HR; Start 12/16/18 at 22:30 Assessment/Plan Hospital Course (Demo Recall) IMPRESSION AND PLAN: 1. Intraparenchymal hemorrhage, now status post evacuation. Ventriculostomy drain in place. 2. Encephalopathy secondary to above. 3. Significant anemia, questionable gastrointestinal bleed. Hemoglobin on admission was 12.3. 4. Renal insufficiency, likely prerenal. 5. Incomplete data. PLAN: 1. Continue tight blood pressure management per neurosurgery. 2. Pain control. 3. Mechanical ventilation. 4. DVT and GI prophylaxis. 5. Nasogastric tube, start tube feeding. 6. Antiepileptics. 7. Repeat CT brain per neurosurgery. Critical care time 40 minutes. SAROJ HANNA MD, [facility] Dec 17, 2018 08:51
[2018-12-17] MEDS: NEOMYC/POLYMYX/BACIT 30 GM OINT TOP SCH ×2 (09:32→20:20)
[2018-12-17] MEDS: LEVETIRACETAM 500 MG (PMX) 100 ML IVPB SCH ×2 (09:32→20:20)
[2018-12-17] MEDS ORDERED: POTASSIUM PHOSPHATE 20 MEQ in SOD CHLORIDE 0.9% 250 ML IVPB ONE (12:00)
[2018-12-17] MEDS: HYDROmorphONE 0.5 MG/0.5 ML SYG IV PRN ×2 (12:14→21:24)
--- NOTE | 2018-12-17 16:09 | PN ---
Date/Time of Note Date/Time of Note DATE: 12/17/18 TIME: 16:08 Assessment/Plan VTE Prophylaxis Risk score (from Ns)>0 risk: 10 SCD applied (from Ns): Yes Pharmacological prophylaxis: heparin Lines/Catheters IV Catheter Type (from Nrsg): Central Line Central line still needed: Yes Urinary Cath still in place: Yes Reason Cath still needed: urinary retention Assessment/Plan Hospital Course 73 yo male who presents with obtundation acute and found to have hemorrhagic stroke/ICH with severe hypertension. Right frontoparietal craniotomy for evacuation of ICH and left frontal ventriculostomy NEURO: ICH - Management per Dr Ruby - s/p Right frontoparietal craniotomy for evacuation of ICH and Left frontal ventriculostomy 12/15 - HOB > 30 - Na goal 145-150 - Keppra ppx CV: hypertension - Cardene drip PULM: Acute respiratory failure - MV per pulmonary RENAL CKD III - Monitor creatine Therapeutic hypernatremia HEME Acute blood loss anemia: - PRBCs transfusion today, then PRN DNR Result Diagram: 12/17/18 0415 12/17/18 1205 Results 24hrs Laboratory Tests Test 12/16/18 17:44 12/17/18 00:09 12/17/18 04:15 12/17/18 07:00 Sodium Level 146 H 146 H 147 H White Blood Count 6.1 Red Blood Count 3.29 L Hemoglobin 9.4 L Hematocrit 28.5 L Mean Corpuscular 86.6 Volume Mean Corpuscular 28.6 L Hemoglobin Mean Corpuscular 33.0 Hemoglobin Concen t Red Cell 15.3 H Distribution Width Platelet Count 170 Mean Platelet 10.3 Volume Immature 0.800 H Granulocytes % Neutrophils % 73.0 Lymphocytes % 17.8 Monocytes % 7.8 Eosinophils % 0.3 Basophils % 0.3 Nucleated Red 0.0 Blood Cells % Immature 0.050 H Granulocytes # Neutrophils # 4.5 Lymphocytes # 1.1 Monocytes # 0.5 Eosinophils # 0.0 Basophils # 0.0 Nucleated Red 0.0 Blood Cells # Potassium Level 3.4 L Chloride Level 118 H Carbon Dioxide 20 L Level Anion Gap 9 Blood Urea 21 H Nitrogen Creatinine 1.26 H Est Glomerular Filtrat Rate mL/min Glucose Level 135 Calcium Level 9.1 Phosphorus Level 1.9 L Magnesium Level 2.0 Blood Gas Blood arterial Specimen Source Arterial Blood 12/17/2018 8:20:2 Date Drawn 3 AM Arterial Blood pH 7.501 H (Temp corrected) Arterial Blood 25.5 L pCO2 (Temp correct) Arterial Blood 147.9 H pO2 (Temp corrected) Arterial Blood 19.5 L HCO3 Arterial Blood -2.6 Base Excess Arterial Blood 98.3 Oxygen Saturation Vipin Test N/A Arterial Blood A-Line Gas Puncture Site Arterial 0.2 Blood Carboxyhemo globin Arterial Blood 0.3 Methemoglobin Blood Gas A-a O2 108.0 H Differential Oxyhemoglobin 97.8 Percent Blood Gas 37.0 Temperature Blood Gas 20.0 Respiration Rate Blood Gas Actual 20 Respiration Rate Blood Gas VENT - AC Modality FiO2 40.0 Blood Gas Tidal 550.0 Volume Blood Gas Low 5.0 PEEP Setting Blood Gas M.D. Notified Whom Blood Gas 12/17/2018 8:30:5 Notified Time 3 AM Test 12/17/18 12:05 Sodium Level 147 H Subjective 24 Hr Interval Summary Free Text/Dictation Tmax 100.4 overnight No other change to clinical status Remains intubated, wtih EVD in place Exam/Review of Systems Exam Vitals Vital Signs Date Temp Pulse Resp B/P (MAP) Pulse Ox O2 O2 Flow FiO2 Time Delivery Rate 12/17/18 62 20 100 30 15:00 12/17/18 158/65 Mechanical 11:15 (96) Ventilator 12/17/18 99.4 08:00 12/15/18 4.0 13:00 Intake and Output 12/16/18 12/16/18 12/17/18 1515:00 23:00 07:00 IntakeIntake Total 656.50 ml 1343.50 ml 1092.0 ml OutputOutput Total 652 ml 644 ml 398 ml BalanceBalance 4.50 ml 699.50 ml 694.0 ml Exam Intubated, sedated EVD in place, scant drainage Clear breath sounds RRR Abdomen soft nt nd soft nt nd Results Results 24hrs Laboratory Tests Test 12/16/18 17:44 12/17/18 00:09 12/17/18 04:15 12/17/18 07:00 Sodium Level 146 H 146 H 147 H White Blood Count 6.1 Red Blood Count 3.29 L Hemoglobin 9.4 L Hematocrit 28.5 L Mean Corpuscular 86.6 Volume Mean Corpuscular 28.6 L Hemoglobin Mean Corpuscular 33.0 Hemoglobin Concen t Red Cell 15.3 H Distribution Width Platelet Count 170 Mean Platelet 10.3 Volume Immature 0.800 H Granulocytes % Neutrophils % 73.0 Lymphocytes % 17.8 Monocytes % 7.8 Eosinophils % 0.3 Basophils % 0.3 Nucleated Red 0.0 Blood Cells % Immature 0.050 H Granulocytes # Neutrophils # 4.5 Lymphocytes # 1.1 Monocytes # 0.5 Eosinophils # 0.0 Basophils # 0.0 Nucleated Red 0.0 Blood Cells # Potassium Level 3.4 L Chloride Level 118 H Carbon Dioxide 20 L Level Anion Gap 9 Blood Urea 21 H Nitrogen Creatinine 1.26 H Est Glomerular Filtrat Rate mL/min Glucose Level 135 Calcium Level 9.1 Phosphorus Level 1.9 L Magnesium Level 2.0 Blood Gas Blood arterial Specimen Source Arterial Blood 12/17/2018 8:20:2 Date Drawn 3 AM Arterial Blood pH 7.501 H (Temp corrected) Arterial Blood 25.5 L pCO2 (Temp correct) Arterial Blood 147.9 H pO2 (Temp corrected) Arterial Blood 19.5 L HCO3 Arterial Blood -2.6 Base Excess Arterial Blood 98.3 Oxygen Saturation Vipin Test N/A Arterial Blood A-Line Gas Puncture Site Arterial 0.2 Blood Carboxyhemo globin Arterial Blood 0.3 Methemoglobin Blood Gas A-a O2 108.0 H Differential Oxyhemoglobin 97.8 Percent Blood Gas 37.0 Temperature Blood Gas 20.0 Respiration Rate Blood Gas Actual 20 Respiration Rate Blood Gas VENT - AC Modality FiO2 40.0 Blood Gas Tidal 550.0 Volume Blood Gas Low 5.0 PEEP Setting Blood Gas M.D. Notified Whom Blood Gas 12/17/2018 8:30:5 Notified Time 3 AM Test 12/17/18 12:05 Sodium Level 147 H Medications Medication Current Medications Levetiracetam 100 ml @ 400 mls/hr BID IVPB Last administered on 12/17/18 09:32; Admin Dose 400 MLS/HR; Start 12/15/18 at 14:00 Hydromorphone HCl (Dilaudid) 0.2 mg Q1H PRN IV .BREAKTHROUGH PAIN Last administered on 12/17/18at 12:14; Admin Dose 0.2 MG; Start 12/15/18 at 18:00 Ondansetron HCl (Zofran Inj) 4 mg Q6H PRN IV NAUSEA/VOMITING; Start 12/15/18 at 18:00 Pantoprazole (Protonix Iv) 40 mg DAILY@06 IV Last administered on 12/17/18 05:55; Admin Dose 40 MG; Start 12/16/18 at 06:00 Naloxone HCl (Narcan) 0.2 mg Q2M PRN IV .RR 8 BREATHS/MIN OR LESS; Start 12/15/18 at 18:00 Potassium Chloride/Sodium Chloride 1,000 ml @ 100 mls/hr Q10H IV Last administered on 12/17/18 06:30; Admin Dose 100 MLS/HR; Start 12/15/18 at 19:30 Neomycin/ Polymyxin/ Bacitracin (Neosporin Topical Oint) 1 applic BID TOP Last administered on 12/17/18 09:32; Admin Dose 1 APPLIC; Start 12/15/18 at 21:00 Propofol 100 ml @ 2.25 mls/hr Q12H IV Last administered on 12/17/18 13:21; Admin Dose 13.5 MLS/HR; Start 12/15/18 at 19:00 Nicardipine HCl 50 mg/Sodium Chloride 500 ml @ 0 mls/hr TITRATE IV Last administered on 12/16/18 00:29; Admin Dose 100 MLS/HR; Start 12/16/18 at 12:00 Hydralazine HCl (Apresoline) 10 mg Q6H PRN IV ELEVATED BLOOD PRESSURE Last administered on 12/16/18 17:24; Admin Dose 10 MG; Start 12/16/18 at 17:00 Acetaminophen (Tylenol Liquid) 650 mg Q4H PRN NGT MILD PAIN(1-3)OR ELEVATED TEMP Last administered on 12/16/18 21:19; Admin Dose 650 MG; Start 12/16/18 at 21:00 Fentanyl 100 ml @ 2.5 mls/hr TITRATE IV Last administered on 12/16/18 23:00; Admin Dose 5 MLS/HR; Start 12/16/18 at 22:30 Acetaminophen/ Hydrocodone Bitart ([place] (5/325)) 1 tab Q6H PRN PO MODERATE PAIN LEVEL 4-6; Start 12/17/18 at 12:30 CASSANDRA WHITE MD Dec 17, 2018 16:09
[2018-12-17] MEDS: HYDROCODONE/APAP (5/325) TAB PO PRN (16:14)
[2018-12-17] MEDS: FENTAnyl (DRIP) 1000 mcg/100mL 100 ML IV SCH (19:13)
--- NOTE | 2018-12-17 21:13 | PN ---
Date/Time of Note Date/Time of Note DATE: 12/17/18 TIME: 21:13 Assessment/Plan Assessment/Plan Date of progress note: 12/17/2018 The patient is postop day 2 status post emergent right frontoparietal craniotomy for evacuation of interparenchymal hematoma and left frontal external ventriculostomy drain placement. The patient remains in the ICU and in a critically ill condition. He is intubated and on a ventilator. He is hemodynamically stable. His blood pressure is being managed with sedation and with Cardene drip on and off. Off sedation, the patient's blood pressure rises significantly but there is no movement of the upper or lower extremities to pain. Head of bed is at 30. His pupils are near pinpoint bilaterally. There are bilateral corneal reflexes, cough and gag reflexes. There is no eye opening to voice or pain. The patient does not follow commands. The drainage from the right frontal intraparenchymal drain has significantly diminished now. The left frontal ventriculostomy drain remains at the level of foramen of Carl and output has become more serous rather than serosanguineous. His latest serum sodium is 147. Assessment/plan: The patient remains in a clinically ill state. He is receiving maximum supportive care as stated above. The patient will remain sedated at least for today and tomorrow and his neuro exam will be serially checked. A follow-up CT of the head without contrast will be obtained tomorrow. The patient's family has been updated periodically by the nursing and the medical staff. In the interim, the patient's family has made the patient DNR. The patient's family is aware of the severe hemorrhagic stroke the patient has sustained. BRYN PINK MD Dec 17, 2018 21:13
[2018-12-18] VITALS (88 sets, daily range): BP systolic 112–179; BP diastolic 51–73; PULSE 57–87; RESP 20–21
[2018-12-18] MEDS: HYDROCODONE/APAP (5/325) TAB PO PRN ×2 (01:02→18:06)
[2018-12-18] MEDS: PROPOFOL 100 ML IV SCH ×4 (02:56→22:45)
[2018-12-18] MEDS: NS + KCL 20 MEQ 1,000 ML IV SCH ×3 (05:01→21:31)
[2018-12-18] MEDS: PANTOPRAZOLE 40 MG INJ IV SCH (05:01)
--- NOTE | 2018-12-18 08:08 | CONS ---
Assessment/Plan Assessment/Plan Assessment/Plan (Daily) Ventilator setting; AC of 20, tidal volume 550, PEEP of 5, 30% FiO2. Patient is currently on propofol at 30 mics per kilogram per minute, fentanyl 50 mics per hour. Assessment recommendations; 1. Patient admitted with altered mental status due to acute intracranial bleed status post left parietal craniotomy with intraventricular drain in place. 2. Low-grade fever, possibly FASHION ILLUSTRATOR in origin. 3. Possibly chronic renal insufficiency with improving renal function. 4. Mild anemia and thrombocytopenia. Continue current supportive care. Continue current ventilator settings. Maintain mild hypernatremia. Obtain follow-up chest x-ray. Monitor H&H. Sedation vacation in 24-48 hours to assess mental status. Further recommendations once chest x-ray is obtained from this morning. Prognosis is guarded. 35 minutes of critical care time was spent evaluating the patient. Consultation Date/Type/Reason Admit Date/Time Dec 15, 2018 at 11:55 Initial Consult Date Type of Consult Pulmonary/critical care Patient's condition remains critical. Patient however has remained hemodynamically stable. No overt seizure activity reported. Patient having low-grade fever. General exam; elderly male, orally intubated, sedated, currently in no distress. Reason for Consultation HEENT exam; supple neck, orally intubated. Patient has multiple carious teeth. Pupils are small bilaterally. Left parietal drain in place. Left parietal scar with briseyda applied. No local erythema noted. Chest exam; diminished but clear breath sounds. S1-S2 audible, no murmurs. Regular rhythm. Abdomen exam; soft, nondistended. No organomegaly. Bowel sounds audible. Extremity exam; no peripheral edema. Pulses 1+. FASHION ILLUSTRATOR exam; patient is sedated. Requesting Provider: CASSANDRA WHITE MD Date/Time of Note DATE: 12/18/18 TIME: 08:05 Exam/Review of Systems Exam Vitals Vital Signs Date Temp Pulse Resp B/P (MAP) Pulse Ox O2 O2 Flow FiO2 Time Delivery Rate 12/18/18 58 20 114/60 99 06:00 (78) 12/18/18 30 05:00 12/18/18 98.9 04:00 12/17/18 Bag Valve 20:00 Mask 12/15/18 4.0 13:00 Intake and Output 12/17/18 12/17/18 12/18/18 1515:00 23:00 07:00 IntakeIntake Total 1426.5 ml 1664.5 ml 1449.5 ml OutputOutput Total 562 ml 463 ml 497 ml BalanceBalance 864.5 ml 1201.5 ml 952.5 ml Results Result Diagram: 12/18/18 0400 12/18/18 0400 Results 24hrs Laboratory Tests Test 12/17/18 12:05 12/17/18 18:30 12/18/18 04:00 12/18/18 07:00 Sodium Level 147 H 146 H 147 H White Blood Count 5.9 Red Blood Count 3.12 L Hemoglobin 9.0 L Hematocrit 27.2 L Mean Corpuscular 87.2 Volume Mean Corpuscular 28.8 L Hemoglobin Mean Corpuscular 33.1 Hemoglobin Concen t Red Cell 15.3 H Distribution Width Platelet Count 171 Mean Platelet 10.6 H Volume Immature 0.300 Granulocytes % Neutrophils % 69.7 Lymphocytes % 22.1 Monocytes % 6.1 Eosinophils % 1.5 Basophils % 0.3 Nucleated Red 0.0 Blood Cells % Immature 0.020 Granulocytes # Neutrophils # 4.1 Lymphocytes # 1.3 Monocytes # 0.4 Eosinophils # 0.1 Basophils # 0.0 Nucleated Red 0.0 Blood Cells # Potassium Level 3.6 Chloride Level 117 H Carbon Dioxide 20 L Level Anion Gap 10 Blood Urea 19 Nitrogen Creatinine 1.02 Est Glomerular Filtrat Rate mL/min Glucose Level 141 Calcium Level 8.7 Phosphorus Level 2.0 L Magnesium Level 2.0 Blood Gas Blood arterial Specimen Source Arterial Blood 12/18/2018 7:30:4 Date Drawn 2 AM Arterial Blood pH 7.484 H (Temp corrected) Arterial Blood 25.7 L pCO2 (Temp correct) Arterial Blood 103.1 H pO2 (Temp corrected) Arterial Blood 18.9 L HCO3 Arterial Blood -3.6 L Base Excess Arterial Blood 97.3 Oxygen Saturation Vipin Test N/A Arterial Blood A-Line Gas Puncture Site Arterial 0.2 Blood Carboxyhemo globin Arterial Blood 0.3 Methemoglobin Blood Gas A-a O2 80.6 H Differential Oxyhemoglobin 96.8 Percent Blood Gas 37.0 Temperature Blood Gas 20.0 Respiration Rate Blood Gas Actual 20 Respiration Rate Blood Gas VENT - AC Modality FiO2 30.0 Blood Gas Tidal 550.0 Volume Blood Gas Low 5.0 PEEP Setting Blood Gas TM Notified Whom Blood Gas 12/18/2018 8:03:3 Notified Time 2 AM Medications Medication Current Medications Levetiracetam 100 ml @ 400 mls/hr BID IVPB Last administered on 12/17/18 20:20; Admin Dose 400 MLS/HR; Start 12/15/18 at 14:00 Hydromorphone HCl (Dilaudid) 0.2 mg Q1H PRN IV .BREAKTHROUGH PAIN Last administered on 12/17/18 21:24; Admin Dose 0.2 MG; Start 12/15/18 at 18:00 Ondansetron HCl (Zofran Inj) 4 mg Q6H PRN IV NAUSEA/VOMITING; Start 12/15/18 at 18:00 Pantoprazole (Protonix Iv) 40 mg DAILY@06 IV Last administered on 12/18/18 05:01; Admin Dose 40 MG; Start 12/16/18 at 06:00 Naloxone HCl (Narcan) 0.2 mg Q2M PRN IV .RR 8 BREATHS/MIN OR LESS; Start 12/15/18 at 18:00 Potassium Chloride/Sodium Chloride 1,000 ml @ 100 mls/hr Q10H IV Last administered on 12/18/18 05:01; Admin Dose 100 MLS/HR; Start 12/15/18 at 19:30 Neomycin/ Polymyxin/ Bacitracin (Neosporin Topical Oint) 1 applic BID TOP Last administered on 12/17/18 20:20; Admin Dose 1 APPLIC; Start 12/15/18 at 21:00 Propofol 100 ml @ 2.25 mls/hr Q12H IV Last administered on 12/18/18 02:56; Admin Dose 13.5 MLS/HR; Start 12/15/18 at 19:00 Nicardipine HCl 50 mg/Sodium Chloride 500 ml @ 0 mls/hr TITRATE IV Last administered on 12/16/18 00:29; Admin Dose 100 MLS/HR; Start 12/16/18 at 12:00 Hydralazine HCl (Apresoline) 10 mg Q6H PRN IV ELEVATED BLOOD PRESSURE Last administered on 12/16/18 17:24; Admin Dose 10 MG; Start 12/16/18 at 17:00 Acetaminophen (Tylenol Liquid) 650 mg Q4H PRN NGT MILD PAIN(1-3)OR ELEVATED TEMP Last administered on 12/16/18at 21:19; Admin Dose 650 MG; Start 12/16/18 at 21:00 Fentanyl 100 ml @ 2.5 mls/hr TITRATE IV Last administered on 12/17/18at 19:13; Admin Dose 5 MLS/HR; Start 12/16/18 at 22:30 Acetaminophen/ Hydrocodone Bitart ([place] (5/325)) 1 tab Q6H PRN PO MODERATE PAIN LEVEL 4-6 Last administered on 12/18/18at 01:02; Admin Dose 1 TAB; Start 12/17/18 at 12:30 PARAMJIT DORSEY Dec 18, 2018 08:08
[2018-12-18] MEDS: NEOMYC/POLYMYX/BACIT 30 GM OINT TOP SCH ×2 (09:16→21:14)
[2018-12-18] MEDS: LEVETIRACETAM 500 MG (PMX) 100 ML IVPB SCH ×2 (09:16→21:14)
[2018-12-18] MEDS: HYDROmorphONE 0.5 MG/0.5 ML SYG IV PRN ×2 (13:30→22:38)
[2018-12-18] MEDS: FENTAnyl (DRIP) 1000 mcg/100mL 100 ML IV SCH (14:42)
--- NOTE | 2018-12-18 15:44 | CONS ---
Assessment/Plan Assessment/Plan Hospital Course 73 M c/ reported Hx of HTN, who is admitted to the [facility] ICU for management of acute cerebral hemorrhage...for which neurology is consulted.. s/p emergent neurosurgery on 12/15 P: Post-op management per neurosurgery Keppra 500mg iv bid for now Ativan iv prn prolonged seizure Strict BP control (SBP < 160) Hold antiplatelets and anticoagulants Goals of care and other management per primary Will follow clinically Consultation Date/Type/Reason Admit Date/Time Dec 15, 2018 at 11:55 Type of Consult Neurology Reason for Consultation ICH Requesting Provider: CASSANDRA WHITE MD Date/Time of Note DATE: 12/18/18 TIME: 15:44 24 HR Interval Summary Free Text/Dictation Continues critical care. S/p EVD placement. On fentanyl/versed/levophed gtt. Subjective hx not possible: pt non-verbal, pt critical Exam Vital Signs Vitals Vital Signs Date Temp Pulse Resp B/P (MAP) Pulse Ox O2 O2 Flow FiO2 Time Delivery Rate 12/18/18 58 20 99 30 13:16 12/18/18 155/65 11:00 (95) 12/18/18 Mechanical 10:00 Ventilator 12/18/18 99.7 08:00 12/15/18 4.0 13:00 Intake and Output 12/17/18 12/17/18 12/18/18 1515:00 23:00 07:00 IntakeIntake Total 1426.5 ml 1664.5 ml 1449.5 ml OutputOutput Total 562 ml 463 ml 497 ml BalanceBalance 864.5 ml 1201.5 ml 952.5 ml Exam PE: Gen Appearance: No Apparent Distress HEENT: Intubated; ventriculostomy.. Cardiovascular: Regular rate Abdomen: Soft Extremities: Dry NE: The patient was comatose... Cranial nerve examination was limited by mental status. Pupils were equal and reactive to light. There was no afferent pupillary defect. Funduscopic examination was limited. Face was grossly symmetric, w/ present corneal and cough reflexes. Tone was normal. Muscle bulk was normal. I did not see fasciculations. The pt did not withdraw to noxious stimuli. Coordination and gait testing was limited by mental status. Arm and leg reflexes were symmetric. Munoz's sign was absent. Plantar responses were flexor. VICK DIEHL NP Dec 18, 2018 15:44 PARTHA MILLER Dec 18, 2018 15:46
--- NOTE | 2018-12-18 16:31 | PN ---
Date/Time of Note Date/Time of Note DATE: 12/18/18 TIME: 16:30 Assessment/Plan VTE Prophylaxis Risk score (from Ns)>0 risk: 10 SCD applied (from Ns): Yes Pharmacological prophylaxis: NA/contraindicated Pharm contraindication: bleeding Assessment/Plan Hospital Course 73 yo male who presents with obtundation acute and found to have hemorrhagic stroke/ICH with severe hypertension. Right frontoparietal craniotomy for evacuation of ICH and left frontal ventriculostomy NEURO: ICH - Management per Dr Ruby - s/p Right frontoparietal craniotomy for evacuation of ICH and Left frontal ventriculostomy 12/15 - HOB > 30 - Na goal 145-150 - Keppra ppx CV: hypertension - Cardene drip PULM: Acute respiratory failure - MV per pulmonary RENAL CKD III - Monitor creatine Therapeutic hypernatremia HEME Acute blood loss anemia: - PRBCs transfusion today, then PRN DNR Prophylaxis: SCDs Result Diagram: 12/18/18 0400 12/18/18 0400 Results 24hrs Laboratory Tests Test 12/17/18 18:30 12/18/18 04:00 12/18/18 07:00 Sodium Level 146 H 147 H White Blood Count 5.9 Red Blood Count 3.12 L Hemoglobin 9.0 L Hematocrit 27.2 L Mean Corpuscular Volume 87.2 Mean Corpuscular Hemoglobin 28.8 L Mean Corpuscular 33.1 Hemoglobin Concent Red Cell Distribution Width 15.3 H Platelet Count 171 Mean Platelet Volume 10.6 H Immature Granulocytes % 0.300 Neutrophils % 69.7 Lymphocytes % 22.1 Monocytes % 6.1 Eosinophils % 1.5 Basophils % 0.3 Nucleated Red Blood Cells % 0.0 Immature Granulocytes # 0.020 Neutrophils # 4.1 Lymphocytes # 1.3 Monocytes # 0.4 Eosinophils # 0.1 Basophils # 0.0 Nucleated Red Blood Cells # 0.0 Potassium Level 3.6 Chloride Level 117 H Carbon Dioxide Level 20 L Anion Gap 10 Blood Urea Nitrogen 19 Creatinine 1.02 Est Glomerular Filtrat Rate mL/min Glucose Level 141 Calcium Level 8.7 Phosphorus Level 2.0 L Magnesium Level 2.0 Blood Gas Specimen Source Blood arterial Arterial Blood Date Drawn 12/18/2018 7:30:42 AM Arterial Blood pH 7.484 H (Temp corrected) Arterial Blood pCO2 25.7 L (Temp correct) Arterial Blood pO2 103.1 H (Temp corrected) Arterial Blood HCO3 18.9 L Arterial Blood Base Excess -3.6 L Arterial Blood 97.3 Oxygen Saturation Vipin Test N/A Arterial Blood Gas A-Line Puncture Site Arterial 0.2 Blood Carboxyhemoglobin Arterial Blood Methemoglobin 0.3 Blood Gas A-a O2 80.6 H Differential Oxyhemoglobin Percent 96.8 Blood Gas Temperature 37.0 Blood Gas Respiration Rate 20.0 Blood Gas Actual 20 Respiration Rate Blood Gas Modality VENT - AC FiO2 30.0 Blood Gas Tidal Volume 550.0 Blood Gas Low PEEP Setting 5.0 Blood Gas Notified Whom TM Blood Gas Notified Time 12/18/2018 8:03:32 AM Subjective 24 Hr Interval Summary Subjective hx not possible: pt non-verbal Exam/Review of Systems Exam Vitals Vital Signs Date Temp Pulse Resp B/P (MAP) Pulse Ox O2 O2 Flow FiO2 Time Delivery Rate 12/18/18 59 16:00 12/18/18 20 154/60 98 15:45 (91) 12/18/18 [place] 15:00 l Ventilato r 12/18/18 30 13:16 12/18/18 100.3 12:00 12/15/18 4.0 13:00 Intake and Output 12/17/18 12/17/18 12/18/18 1515:00 23:00 07:00 IntakeIntake Total 1426.5 ml 1664.5 ml 1449.5 ml OutputOutput Total 562 ml 463 ml 497 ml BalanceBalance 864.5 ml 1201.5 ml 952.5 ml Constitutional: non-verbal ENMT: intubated Respiratory: clear to auscultation Cardiovascular: regular rate and rhythm Gastrointestinal: soft; No distended Musculoskeletal: nl extremities to inspection Results Results 24hrs Laboratory Tests Test 12/17/18 18:30 12/18/18 04:00 12/18/18 07:00 Sodium Level 146 H 147 H White Blood Count 5.9 Red Blood Count 3.12 L Hemoglobin 9.0 L Hematocrit 27.2 L Mean Corpuscular Volume 87.2 Mean Corpuscular Hemoglobin 28.8 L Mean Corpuscular 33.1 Hemoglobin Concent Red Cell Distribution Width 15.3 H Platelet Count 171 Mean Platelet Volume 10.6 H Immature Granulocytes % 0.300 Neutrophils % 69.7 Lymphocytes % 22.1 Monocytes % 6.1 Eosinophils % 1.5 Basophils % 0.3 Nucleated Red Blood Cells % 0.0 Immature Granulocytes # 0.020 Neutrophils # 4.1 Lymphocytes # 1.3 Monocytes # 0.4 Eosinophils # 0.1 Basophils # 0.0 Nucleated Red Blood Cells # 0.0 Potassium Level 3.6 Chloride Level 117 H Carbon Dioxide Level 20 L Anion Gap 10 Blood Urea Nitrogen 19 Creatinine 1.02 Est Glomerular Filtrat Rate mL/min Glucose Level 141 Calcium Level 8.7 Phosphorus Level 2.0 L Magnesium Level 2.0 Blood Gas Specimen Source Blood arterial Arterial Blood Date Drawn 12/18/2018 7:30:42 AM Arterial Blood pH 7.484 H (Temp corrected) Arterial Blood pCO2 25.7 L (Temp correct) Arterial Blood pO2 103.1 H (Temp corrected) Arterial Blood HCO3 18.9 L Arterial Blood Base Excess -3.6 L Arterial Blood 97.3 Oxygen Saturation Vipin Test N/A Arterial Blood Gas A-Line Puncture Site Arterial 0.2 Blood Carboxyhemoglobin Arterial Blood Methemoglobin 0.3 Blood Gas A-a O2 80.6 H Differential Oxyhemoglobin Percent 96.8 Blood Gas Temperature 37.0 Blood Gas Respiration Rate 20.0 Blood Gas Actual 20 Respiration Rate Blood Gas Modality VENT - AC FiO2 30.0 Blood Gas Tidal Volume 550.0 Blood Gas Low PEEP Setting 5.0 Blood Gas Notified Whom TM Blood Gas Notified Time 12/18/2018 8:03:32 AM Medications Medication Current Medications Levetiracetam 100 ml @ 400 mls/hr BID IVPB Last administered on 12/18/18at 09:16; Admin Dose 400 MLS/HR; Start 12/15/18 at 14:00 Hydromorphone HCl (Dilaudid) 0.2 mg Q1H PRN IV .BREAKTHROUGH PAIN Last administered on 12/18/18at 13:30; Admin Dose 0.2 MG; Start 12/15/18 at 18:00 Ondansetron HCl (Zofran Inj) 4 mg Q6H PRN IV NAUSEA/VOMITING; Start 12/15/18 at 18:00 Pantoprazole (Protonix Iv) 40 mg DAILY@06 IV Last administered on 12/18/18at 05:01; Admin Dose 40 MG; Start 12/16/18 at 06:00 Naloxone HCl (Narcan) 0.2 mg Q2M PRN IV .RR 8 BREATHS/MIN OR LESS; Start 12/15/18 at 18:00 Potassium Chloride/Sodium Chloride 1,000 ml @ 100 mls/hr Q10H IV Last administered on 12/18/18 05:01; Admin Dose 100 MLS/HR; Start 12/15/18 at 19:30 Neomycin/ Polymyxin/ Bacitracin (Neosporin Topical Oint) 1 applic BID TOP Last administered on 12/18/18 09:16; Admin Dose 1 APPLIC; Start 12/15/18 at 21:00 Propofol 100 ml @ 2.25 mls/hr Q12H IV Last administered on 12/18/18 16:20; Admin Dose 13.5 MLS/HR; Start 12/15/18 at 19:00 Nicardipine HCl 50 mg/Sodium Chloride 500 ml @ 0 mls/hr TITRATE IV Last administered on 12/16/18 00:29; Admin Dose 100 MLS/HR; Start 12/16/18 at 12:00 Hydralazine HCl (Apresoline) 10 mg Q6H PRN IV ELEVATED BLOOD PRESSURE Last administered on 12/16/18 17:24; Admin Dose 10 MG; Start 12/16/18 at 17:00 Acetaminophen (Tylenol Liquid) 650 mg Q4H PRN NGT MILD PAIN(1-3)OR ELEVATED TEMP Last administered on 12/16/18 21:19; Admin Dose 650 MG; Start 12/16/18 at 21:00 Fentanyl 100 ml @ 2.5 mls/hr TITRATE IV Last administered on 12/18/18 14:42; Admin Dose 5 MLS/HR; Start 12/16/18 at 22:30 Acetaminophen/ Hydrocodone Bitart ([place] (5/325)) 1 tab Q6H PRN PO MODERATE PAIN LEVEL 4-6 Last administered on 12/18/18 01:02; Admin Dose 1 TAB; Start 12/17/18 at 12:30 MARLEE MAGAÑA Dec 18, 2018 16:31
[2018-12-18] MEDS: ACETAMINOPHEN 650MG/20.3ML CUP NGT PRN (19:32)
[2018-12-19] VITALS (38 sets, daily range): BP systolic 84–179; BP diastolic 44–86; PULSE 78–110; RESP 16–36
[2018-12-19] MEDS: HYDROCODONE/APAP (5/325) TAB PO PRN (00:47)
[2018-12-19] MEDS: HYDROmorphONE 0.5 MG/0.5 ML SYG IV PRN ×3 (00:48→02:55)
[2018-12-19] MEDS: niCARdipine 50 MG in SOD CHLORIDE 0.9% 480 ML IV SCH (00:54)
[2018-12-19] MEDS: PROPOFOL 100 ML IV SCH ×2 (03:20→13:55)
[2018-12-19] MEDS: FENTAnyl (DRIP) 1000 mcg/100mL 100 ML IV SCH ×2 (04:30→17:25)
[2018-12-19] MEDS: PANTOPRAZOLE 40 MG INJ IV SCH (05:31)
[2018-12-19] MEDS: NS + KCL 20 MEQ 1,000 ML IV SCH ×2 (06:57→16:44)
[2018-12-19] MEDS: LEVETIRACETAM 500 MG (PMX) 100 ML IVPB SCH ×2 (08:07→20:04)
[2018-12-19] MEDS: NEOMYC/POLYMYX/BACIT 30 GM OINT TOP SCH ×2 (08:09→20:04)
--- NOTE | 2018-12-19 09:28 | CONS ---
Assessment/Plan Assessment/Plan Assessment/Plan (Daily) Chest x-ray was reviewed from today which is showing bibasilar infiltrative changes. Ventilator setting; AC of 20, tidal volume 550, PEEP of 5, 60% FiO2. Assessment and recommendations; 1. Patient admitted with altered mental status due to acute intracranial bleed status post craniotomy with placement of ventriculostomy. 2. Extremely poor mental status. 3. Intermittent fevers, with possibility of bibasilar pneumonia. 4. Acute on chronic mild renal insufficiency. 5. Anemia and thrombocytopenia. 6. History of hypertension. 7. Mild hypotension. Patient at this point not requiring any pressor support. Add Azactam 2 g every 12 hours. Continue current supportive measures. Monitor for any overt seizure activity. Obtain follow-up chest x-ray 24 hours. Prognosis appears poor. 35 minutes of critical care time was spent evaluating the patient. Consultation Date/Type/Reason Admit Date/Time Dec 15, 2018 at 11:55 Initial Consult Date Type of Consult Pulmonary/critical care Patient's condition remains critical. Patient however has remained hemodynamically stable. No overt seizure activity reported. Patient having low-grade fever. General exam; elderly male, orally intubated, sedated, currently in no distress. Requesting Provider: CASSANDRA WHITE MD Date/Time of Note DATE: 12/19/18 TIME: 09:25 24 HR Interval Summary Free Text/Dictation Patient's condition is critical. Remains unresponsive off sedation. No overt seizure activity reported. Patient still spiking fevers off and on. General exam; elderly male, orally intubated, unresponsive, currently in no distress. Exam/Review of Systems Exam Vitals Vital Signs Date Temp Pulse Resp B/P (MAP) Pulse Ox O2 O2 Flow FiO2 Time Delivery Rate 12/19/18 110 08:00 12/19/18 99.6 18 104/86 93 Mechanical 08:00 (92) Ventilator 12/19/18 60 05:40 12/15/18 4.0 13:00 Intake and Output 12/18/18 12/18/18 12/19/18 1515:00 23:00 07:00 IntakeIntake Total 1641.5 ml 1619.0 ml 1282.0 ml OutputOutput Total 672 ml 574 ml 337 ml BalanceBalance 969.5 ml 1045.0 ml 945.0 ml Exam H EENT exam; supple neck, no JVD. No lymphadenopathy. Midline trachea. No thyromegaly. Pupils are small bilaterally. Left parietal ventriculostomy drain in place. Cranial briseyda in place. The patient has carious teeth. No neck masses. Chest exam; diminished but clear breath sounds. S1-S2 audible, no murmurs. Regular rhythm. Abdomen exam; soft, no organomegaly. Bowel sounds are audible. Nondistended. Extremity exam; trace edema. Pulses 1+. AEROSPACE MANAGER exam; patient remains unresponsive. Results Result Diagram: 12/19/18 0430 12/19/18 0430 Results 24hrs Laboratory Tests Test 12/19/18 04:30 12/19/18 04:58 White Blood Count 3.5 #L Red Blood Count 3.35 L Hemoglobin 9.6 L Hematocrit 30.2 L Mean Corpuscular Volume 90.1 Mean Corpuscular Hemoglobin 28.7 L Mean Corpuscular Hemoglobin Concent 31.8 L Red Cell Distribution Width 14.9 H Platelet Count 173 Mean Platelet Volume 10.6 H Immature Granulocytes % 0.300 Neutrophils % Segmented Neutrophils % (Manual) 14 L Band Neutrophils % (Manual) 22 H Lymphocytes % Lymphocytes % (Manual) 22 Reactive Lymphocytes % (Manual) 20 H Monocytes % Monocytes % (Manual) 14 H Eosinophils % Eosinophils % (Manual) 2 Basophils % Basophils % (Manual) 2 Metamyelocytes % (manual) 2 H Myelocytes % (Manual) 2 H Nucleated Red Blood Cells % 1 H Immature Granulocytes # 0.010 Neutrophils # Neutrophils # (Manual) 0.5 L Band Neutrophils # 0.7 H Lymphocytes (Manual) 0.7 L Lymphocytes # Reactive Lymphocytes # 0.7 H Monocytes # Monocytes # (Manual) 0.4 Eosinophils # Basophils # Basophils # (Manual) 0.0 Metamyelocytes # 0.0 Myelocytes # 0.0 Nucleated Red Blood Cells # Platelet Estimate NORMAL Giant Platelets 2 H Polychromasia 3+ Poikilocytosis 2+ Anisocytosis 2+ Microcytosis 2+ Sodium Level 144 Potassium Level 4.0 Chloride Level 115 H Carbon Dioxide Level 19 L Anion Gap 10 Blood Urea Nitrogen 20 Creatinine 1.21 Est Glomerular Filtrat Rate mL/min Glucose Level 110 Calcium Level 8.2 L Phosphorus Level 5.4 #H Magnesium Level 1.7 Lab Scanned Report BLOOD TRANSFUSION Medications Medication Current Medications Levetiracetam 100 ml @ 400 mls/hr BID IVPB Last administered on 12/19/18 08:07; Admin Dose 400 MLS/HR; Start 12/15/18 at 14:00 Ondansetron HCl (Zofran Inj) 4 mg Q6H PRN IV NAUSEA/VOMITING; Start 12/15/18 at 18:00 Pantoprazole (Protonix Iv) 40 mg DAILY@06 IV Last administered on 12/19/18 05:31; Admin Dose 40 MG; Start 12/16/18 at 06:00 Naloxone HCl (Narcan) 0.2 mg Q2M PRN IV .RR 8 BREATHS/MIN OR LESS; Start 12/15/18 at 18:00 Potassium Chloride/Sodium Chloride 1,000 ml @ 100 mls/hr Q10H IV Last admi nistered on 12/19/18 06:57; Admin Dose 100 MLS/HR; Start 12/15/18 at 19:30 Neomycin/ Polymyxin/ Bacitracin (Neosporin Topical Oint) 1 applic BID TOP Last administered on 12/19/18 08:09; Admin Dose 1 APPLIC; Start 12/15/18 at 21:00 Propofol 100 ml @ 2.25 mls/hr Q12H IV Last administered on 12/19/18 03:20; Admin Dose 22.5 MLS/HR; Start 12/15/18 at 19:00 Nicardipine HCl 50 mg/Sodium Chloride 500 ml @ 0 mls/hr TITRATE IV Last administered on 12/19/18 00:54; Admin Dose 50 MLS/HR; Start 12/16/18 at 12:00 Hydralazine HCl (Apresoline) 10 mg Q6H PRN IV ELEVATED BLOOD PRESSURE Last administered on 12/16/18 17:24; Admin Dose 10 MG; Start 12/16/18 at 17:00 Acetaminophen (Tylenol Liquid) 650 mg Q4H PRN NGT MILD PAIN(1-3)OR ELEVATED TEMP Last administered on 12/18/18 19:32; Admin Dose 650 MG; Start 12/16/18 at 21:00 Fentanyl 100 ml @ 2.5 mls/hr TITRATE IV Last administered on 12/19/18 04:30; Admin Dose 10 MLS/HR; Start 12/16/18 at 22:30 Acetaminophen/ Hydrocodone Bitart ([place] (5/325)) 1 tab Q6H PRN PO MODERATE PAIN LEVEL 4-6 Last administered on 12/19/18at 00:47; Admin Dose 1 TAB; Start at 12:30 Hydromorphone HCl (Dilaudid) 0.4 mg Q1H PRN IV PAIN Last administered on 12/19/18at 02:55; Admin Dose 0.4 MG; Start 12/19/18 at 00:00 PARAMJIT DORSEY 12, 2019 09:28
[2018-12-19] MEDS ORDERED: SOD CHLORIDE 0.9% 500 ML IV ONE ×2 (10:30→15:30)
[2018-12-19] MEDS: AZTREONAM 2 GM in SOD CHLORIDE 0.9% 100 ML IVPB SCH ×3 (12:07→22:08)
--- NOTE | 2018-12-19 13:05 | CONS ---
Consultation Date/Type/Reason Admit Date/Time Dec 15, 2018 at 11:55 Type of Consult Neurology Reason for Consultation ICH Requesting Provider: CASSANDRA WHITE MD Date/Time of Note DATE: 12/19/18 TIME: 13:05 Exam/Review of Systems Exam Vitals Vital Signs Date Temp Pulse Resp B/P (MAP) Pulse Ox O2 O2 Flow FiO2 Time Delivery Rate 12/19/18 98.5 99 28 94/59 (71) Mechanical 12:00 Ventilator 12/19/18 94 11:00 12/19/18 60 08:00 12/15/18 4.0 13:00 Intake and Output 12/18/18 12/18/18 12/19/18 1515:00 23:00 07:00 IntakeIntake Total 1641.5 ml 1619.0 ml 1382.0 ml OutputOutput Total 672 ml 574 ml 337 ml BalanceBalance 969.5 ml 1045.0 ml 1045.0 ml Results Result Diagram: 12/19/18 0430 12/19/18 0430 Results 24hrs Laboratory Tests Test 12/19/18 04:30 12/19/18 04:58 White Blood Count 3.5 #L Red Blood Count 3.35 L Hemoglobin 9.6 L Hematocrit 30.2 L Mean Corpuscular Volume 90.1 Mean Corpuscular Hemoglobin 28.7 L Mean Corpuscular Hemoglobin Concent 31.8 L Red Cell Distribution Width 14.9 H Platelet Count 173 Mean Platelet Volume 10.6 H Immature Granulocytes % 0.300 Neutrophils % Segmented Neutrophils % (Manual) 14 L Band Neutrophils % (Manual) 22 H Lymphocytes % Lymphocytes % (Manual) 22 Reactive Lymphocytes % (Manual) 20 H Monocytes % Monocytes % (Manual) 14 H Eosinophils % Eosinophils % (Manual) 2 Basophils % Basophils % (Manual) 2 Metamyelocytes % (manual) 2 H Myelocytes % (Manual) 2 H Nucleated Red Blood Cells % 1 H Immature Granulocytes # 0.010 Neutrophils # Neutrophils # (Manual) 0.5 L Band Neutrophils # 0.7 H Lymphocytes (Manual) 0.7 L Lymphocytes # Reactive Lymphocytes # 0.7 H Monocytes # Monocytes # (Manual) 0.4 Eosinophils # Basophils # Basophils # (Manual) 0.0 Metamyelocytes # 0.0 Myelocytes # 0.0 Nucleated Red Blood Cells # Platelet Estimate NORMAL Giant Platelets 2 H Polychromasia 3+ Poikilocytosis 2+ Anisocytosis 2+ Microcytosis 2+ Sodium Level 144 Potassium Level 4.0 Chloride Level 115 H Carbon Dioxide Level 19 L Anion Gap 10 Blood Urea Nitrogen 20 Creatinine 1.21 Est Glomerular Filtrat Rate mL/min Glucose Level 110 Calcium Level 8.2 L Phosphorus Level 5.4 #H Magnesium Level 1.7 Lab Scanned Report BLOOD TRANSFUSION Medications Medication Current Medications Levetiracetam 100 ml @ 400 mls/hr BID IVPB Last administered on 12/19/18 08:07; Admin Dose 400 MLS/HR; Start 12/15/18 at 14:00 Ondansetron HCl (Zofran Inj) 4 mg Q6H PRN IV NAUSEA/VOMITING; Start 12/15/18 at 18:00 Pantoprazole (Protonix Iv) 40 mg DAILY@06 IV Last administered on 12/19/18 05:31; Admin Dose 40 MG; Start 12/16/18 at 06:00 Naloxone HCl (Narcan) 0.2 mg Q2M PRN IV .RR 8 BREATHS/MIN OR LESS; Start 12/15/18 at 18:00 Potassium Chloride/Sodium Chloride 1,000 ml @ 100 mls/hr Q10H IV Last administered on 12/19/18 06:57; Admin Dose 100 MLS/HR; Start 12/15/18 at 19:30 Neomycin/ Polymyxin/ Bacitracin (Neosporin Topical Oint) 1 applic BID TOP Last administered on 12/19/18 08:09; Admin Dose 1 APPLIC; Start 12/15/18 at 21:00 Propofol 100 ml @ 2.25 mls/hr Q12H IV Last administered on 12/19/18 03:20; Admin Dose 22.5 MLS/HR; Start 12/15/18 at 19:00 Nicardipine HCl 50 mg/Sodium Chloride 500 ml @ 0 mls/hr TITRATE IV Last administered on 12/19/18 00:54; Admin Dose 50 MLS/HR; Start 12/16/18 at 12:00 Hydralazine HCl (Apresoline) 10 mg Q6H PRN IV ELEVATED BLOOD PRESSURE Last administered on 12/16/18 17:24; Admin Dose 10 MG; Start 12/16/18 at 17:00 Acetaminophen (Tylenol Liquid) 650 mg Q4H PRN NGT MILD PAIN(1-3)OR ELEVATED TEMP Last administered on 12/18/18at 19:32; Admin Dose 650 MG; Start 12/16/18 at 21:00 Fentanyl 100 ml @ 2.5 mls/hr TITRATE IV Last administered on 12/19/18at 04:30; Admin Dose 10 MLS/HR; Start 12/16/18 at 22:30 Acetaminophen/ Hydrocodone Bitart ([place] (5/325)) 1 tab Q6H PRN PO MODERATE PAIN LEVEL 4-6 Last administered on 12/19/18at 00:47; Admin Dose 1 TAB; Start 12/17/18 at 12:30 Hydromorphone HCl (Dilaudid) 0.4 mg Q1H PRN IV PAIN Last administered on 12/19/18at 02:55; Admin Dose 0.4 MG; Start 12/19/18 at 00:00 Aztreonam 2 gm/ Sodium Chloride 100 ml @ 100 mls/hr Q8 IVPB Last administered on 12/19/18at 12:07; Admin Dose 100 MLS/HR; Start 12/19/18 at 11:00 Past Medical History Medical History: hypertension Home Meds Reported Medications Cyanocobalamin* (Vitamin B12*) 500 Mcg Tab, 500 MCG PO DAILY, TAB 12/15/18 Vitamin E Mixed* (Vitamin E*) 400 Unit Capsule, 400 UNIT PO DAILY, CAP 12/15/18 Ergocalciferol (Vitamin D2) (VITAMIN D2) 50,000 Unit Capsule, 80614 UNIT PO Q7D, CAP 12/15/18 Ranitidine Hcl* (Zantac*) 150 Mg Tablet, 150 MG PO HS, #30 TAB 12/15/18 Levocetirizine Dihydrochloride (Xyzal) 5 Mg Tablet, 5 MG PO QPM, TAB 12/15/18 Zolpidem Tartrate* (Zolpidem Tartrate*) 5 Mg Tablet, 5 MG PO QHS PRN for INSOMNIA, #30 TAB 12/15/18 Esomeprazole Mag Trihydrate (Nexium) 40 Mg Capsule.dr, 40 MG PO DAILY, #30 CAP 12/15/18 Memantine* (Namenda* XR) 7 Mg Cap.spr.24, 7 MG PO DAILY, #30 TAB 12/15/18 Losartan-Hydrochlorothiazide (Losartan-HCTZ) 50-12.5 Mg Tab, 1 TAB PO DAILY, TAB 12/15/18 Sitagliptin* (Januvia*) 50 Mg Tablet, 50 MG PO DAILY, #30 TAB 12/15/18 Hydralazine Hcl* (Hydralazine Hcl*) 25 Mg Tab, 25 MG PO Q6H PRN for SBP>150, #60 TAB 12/15/18 Glimepiride* (Glimepiride*) 1 Mg Tablet, 1 MG PO WITH BREAKFAST, TAB 12/15/18 Fenofibrate, Micronized (Fenofibrate) 134 Mg Capsule, 134 MG PO DAILY, CAP 12/15/18 Prasugrel Hydrochloride* (Effient*) 5 Mg Tablet, 5 MG PO DAILY, TAB 12/15/18 Docusate Sodium* (Dok*) 250 Mg Capsule, 250 MG PO TID, #60 CAP 12/15/18 Diltiazem Hcl* (Cardizem CD*) 240 Mg Cap.sr.24h, 240 MG PO DAILY, #30 CAP 12/15/18 Cyanocobalamin (Vitamin B-12) (Cyanocobalamin Injection) 1,000 Mcg/1 Ml Vial, 1000 MCG IJ Q WEEK, VIAL 12/15/18 Rosuvastatin Calcium* (Crestor*) 10 Mg Tablet, 10 MG PO QHS, #30 TAB 12/15/18 Clonazepam* (Clonazepam*) 1 Mg Tablet, 1 MG PO BID PRN for ANXIETY, TAB 12/15/18 Tadalafil (Cialis) 5 Mg Tablet, 5 MG PO DAILY, TAB 12/15/18 Celecoxib* (Celebrex*) 200 Mg Capsule, 200 MG PO BID, CAP 12/15/18 Discontinued Reported Medications Ranitidine Hcl* (Ranitidine Hcl*) 150 Mg Tablet, 150 MG PO HS, #30 TAB 12/15/18 Meclizine Hcl* (Meclizine Hcl*) 25 Mg Tablet, 25 MG PO TID, TAB 09/27/15 Clonazepam* (Clonazepam*) 1 Mg Tablet, 1 MG PO BID PRN for ANXIETY, TAB 09/27/15 Cetirizine Hcl* (Cetirizine Hcl*) 10 Mg Tablet, 10 MG PO DAILY, #30 TAB 12/19/15 Fenofibrate Nanocrystallized* (Fenofibrate*) 145 Mg Tablet, 134 MG PO DAILY, TAB 09/27/15 Albuterol Sulfate* (Albuterol Sulfate* HFA) 8.5 Gm Hfa.aer.ad, 1-2 PUFF INH BID PRN for WHEEZING AND SOB, #1 INHALER 09/27/15 Diltiazem Hcl (DILTIAZEM 24HR CD) 240 Mg Cap.er.24h, 240 MG PO, CAP 09/27/15 Diclofenac Sodium* (Voltaren* Gel) 1% -100 Gm Gel, 2 GM TOP BID, #1 TUB 09/27/15 Ranitidine Hcl* (Ranitidine Hcl*) 150 Mg Tablet, 150 MG PO DAILY, TAB 09/27/15 Montelukast Sodium* (Singulair*) 10 Mg Tablet, 10 MG PO QHS, #30 TAB 09/27/15 Rosuvastatin Calcium* (Crestor*) 10 Mg Tablet, 10 MG PO QHS, #30 TAB 09/27/15 Medications Current Medications Levetiracetam 100 ml @ 400 mls/hr BID IVPB Last administered on 12/19/18 08:07; Admin Dose 400 MLS/HR; Start 12/15/18 at 14:00 Ondansetron HCl (Zofran Inj) 4 mg Q6H PRN IV NAUSEA/VOMITING; Start 12/15/18 at 18:00 Pantoprazole (Protonix Iv) 40 mg DAILY@06 IV Last administered on 12/19/18at 05:31; Admin Dose 40 MG; Start 12/16/18 at 06:00 Naloxone HCl (Narcan) 0.2 mg Q2M PRN IV .RR 8 BREATHS/MIN OR LESS; Start 12/15/18 at 18:00 Potassium Chloride/Sodium Chloride 1,000 ml @ 100 mls/hr Q10H IV Last administered on 12/19/18 06:57; Admin Dose 100 MLS/HR; Start 12/15/18 at 19:30 Neomycin/ Polymyxin/ Bacitracin (Neosporin Topical Oint) 1 applic BID TOP Last administered on 12/19/18 08:09; Admin Dose 1 APPLIC; Start 12/15/18 at 21:00 Propofol 100 ml @ 2.25 mls/hr Q12H IV Last administered on 12/19/18 03:20; Admin Dose 22.5 MLS/HR; Start 12/15/18 at 19:00 Nicardipine HCl 50 mg/Sodium Chloride 500 ml @ 0 mls/hr TITRATE IV Last administered on 12/19/18 00:54; Admin Dose 50 MLS/HR; Start 12/16/18 at 12:00 Hydralazine HCl (Apresoline) 10 mg Q6H PRN IV ELEVATED BLOOD PRESSURE Last administered on 12/16/18 17:24; Admin Dose 10 MG; Start 12/16/18 at 17:00 Acetaminophen (Tylenol Liquid) 650 mg Q4H PRN NGT MILD PAIN(1-3)OR ELEVATED TEMP Last administered on 12/18/18 19:32; Admin Dose 650 MG; Start 12/16/18 at 21:00 Fentanyl 100 ml @ 2.5 mls/hr TITRATE IV Last administered on 12/19/18 04:30; Admin Dose 10 MLS/HR; Start 12/16/18 at 22:30 Acetaminophen/ Hydrocodone Bitart ([place] (5/325)) 1 tab Q6H PRN PO MODERATE PAIN LEVEL 4-6 Last administered on 12/19/18 00:47; Admin Dose 1 TAB; Start 12/17/18 at 12:30 Hydromorphone HCl (Dilaudid) 0.4 mg Q1H PRN IV PAIN Last administered on 12/19/18 02:55; Admin Dose 0.4 MG; Start 12/19/18 at 00:00 Aztreonam 2 gm/ Sodium Chloride 100 ml @ 100 mls/hr Q8 IVPB Last administered on 12/19/18 12:07; Admin Dose 100 MLS/HR; Start 12/19/18 at 11:00 Allergies: Coded Allergies: Penicillins (Unverified Allergy, Unknown, 12/15/18) aspirin (Unverified Allergy, Unknown, 12/15/18) ASPIRIN/SALICYLATES Past Surgical History Past Surgical Hx: no surgical history Social History Alcohol Use: none Smoking Status: Current every day smoker Drug Use: none VICK DIEHL NP Dec 19, 2018 13:05
--- NOTE | 2018-12-19 13:35 | CONS ---
Assessment/Plan Assessment/Plan Hospital Course 73 M c/ reported Hx of HTN, who is admitted to the [facility] ICU for management of acute cerebral hemorrhage...for which neurology is consulted.. s/p emergent neurosurgery on 12/15 P: Post-op management per neurosurgery Keppra 500mg iv bid for now Ativan iv prn prolonged seizure Strict BP control (SBP < 160) Hold antiplatelets and anticoagulants Goals of care and other management per primary Will follow clinically Consultation Date/Type/Reason Admit Date/Time Dec 15, 2018 at 11:55 Type of Consult Neurology Reason for Consultation ICH Requesting Provider: CASSANDRA WHITE MD Date/Time of Note DATE: 12/19/18 TIME: 13:34 24 HR Interval Summary Free Text/Dictation Continues critical care. On propofol/fentanyl gtt. EVD output ~5cc/hr. Tmax 104F this am. No reported seizures today. Subjective hx not possible: pt non-verbal, pt critical Exam Vital Signs Vitals Vital Signs Date Temp Pulse Resp B/P (MAP) Pulse Ox O2 O2 Flow FiO2 Time Delivery Rate 12/19/18 91 22 102/54 98 13:00 (70) 12/19/18 98.5 Mechanical 12:00 Ventilator 12/19/18 60 08:00 12/15/18 4.0 13:00 Intake and Output 12/18/18 12/18/18 12/19/18 1515:00 23:00 07:00 IntakeIntake Total 1641.5 ml 1619.0 ml 1392.0 ml OutputOutput Total 672 ml 574 ml 337 ml BalanceBalance 969.5 ml 1045.0 ml 1055.0 ml Exam PE: Gen Appearance: No Apparent Distress HEENT: Intubated; L frontal EVD, R frontal intraparenchymal drain Cardiovascular: Regular rate Abdomen: Soft Extremities: Dry NE: The patient was comatose... Cranial nerve examination was limited by mental status. Pupils were equal and reactive to light. There was no afferent pupillary defect. Funduscopic examination was limited. Face was grossly symmetric, w/ present corneal and cough reflexes. Tone was normal. Muscle bulk was normal. I did not see fasciculations. The pt did not withdraw to noxious stimuli. Coordination and gait testing was limited by mental status. Arm and leg reflexes were symmetric. Munoz's sign was absent. Plantar responses were flexor. VICK DIEHL NP Dec 19, 2018 13:35
--- NOTE | 2018-12-19 14:59 | PN ---
Date/Time of Note Date/Time of Note DATE: 12/19/18 TIME: 14:57 Assessment/Plan VTE Prophylaxis Risk score (from N[place])>0 risk: 11 [place] [facility] [place] Pharmacological prophylaxis: NA/contraindicated Pharm contraindication: bleeding Assessment/Plan Hospital Course 73 yo male who presents with obtundation acute and found to have hemorrhagic stroke/ICH with severe hypertension. Right frontoparietal craniotomy for evacuation of ICH and left frontal ventriculostomy NEURO: ICH - Management per Dr Ruby - s/p Right frontoparietal craniotomy for evacuation of ICH and Left frontal ventriculostomy 12/15 - HOB > 30 - Na goal 145-150 - Keppra ppx CV: hypertension - Cardene drip discontinued secondary to hypotension - IV fluid bolus for hypotension this morning PULM: Acute respiratory failure - MV per pulmonary RENAL CKD III - Monitor creatine Therapeutic hypernatremia HEME Acute blood loss anemia: - PRBCs transfusion today, then PRN DNR Prophylaxis: SCDs Result Diagram: 12/19/18 0430 12/19/18 0430 Results 24hrs Laboratory Tests Test 12/19/18 04:30 12/19/18 04:58 White Blood Count 3.5 #L Red Blood Count 3.35 L Hemoglobin 9.6 L Hematocrit 30.2 L Mean Corpuscular Volume 90.1 Mean Corpuscular Hemoglobin 28.7 L Mean Corpuscular Hemoglobin Concent 31.8 L Red Cell Distribution Width 14.9 H Platelet Count 173 Mean Platelet Volume 10.6 H Immature Granulocytes % 0.300 Neutrophils % Segmented Neutrophils % (Manual) 14 L Band Neutrophils % (Manual) 22 H Lymphocytes % Lymphocytes % (Manual) 22 Reactive Lymphocytes % (Manual) 20 H Monocytes % Monocytes % (Manual) 14 H Eosinophils % Eosinophils % (Manual) 2 Basophils % Basophils % (Manual) 2 Metamyelocytes % (manual) 2 H Myelocytes % (Manual) 2 H Nucleated Red Blood Cells % 1 H Immature Granulocytes # 0.010 Neutrophils # Neutrophils # (Manual) 0.5 L Band Neutrophils # 0.7 H Lymphocytes (Manual) 0.7 L Lymphocytes # Reactive Lymphocytes # 0.7 H Monocytes # Monocytes # (Manual) 0.4 Eosinophils # Basophils # Basophils # (Manual) 0.0 Metamyelocytes # 0.0 Myelocytes # 0.0 Nucleated Red Blood Cells # Platelet Estimate NORMAL Giant Platelets 2 H Polychromasia 3+ Poikilocytosis 2+ Anisocytosis 2+ Microcytosis 2+ Sodium Level 144 Potassium Level 4.0 Chloride Level 115 H Carbon Dioxide Level 19 L Anion Gap 10 Blood Urea Nitrogen 20 Creatinine 1.21 Est Glomerular Filtrat Rate mL/min Glucose Level 110 Calcium Level 8.2 L Phosphorus Level 5.4 #H Magnesium Level 1.7 Lab Scanned Report BLOOD TRANSFUSION Subjective 24 Hr Interval Summary Subjective hx not possible: pt non-verbal Exam/Review of Systems Exam Vitals Vital Signs Date Temp Pulse Resp B/P (MAP) Pulse Ox O2 O2 Flow FiO2 Time Delivery Rate 12/19/18 85 19 103/61 98 14:00 (75) 12/19/18 98.5 Mechanical 12:00 Ventilator 12/19/18 60 08:00 12/15/18 4.0 13:00 Intake and Output 12/18/18 12/18/18 12/19/18 1515:00 23:00 07:00 IntakeIntake Total 1641.5 ml 1619.0 ml 1392.0 ml OutputOutput Total 672 ml 574 ml 337 ml BalanceBalance 969.5 ml 1045.0 ml 1055.0 ml Constitutional: non-verbal ENMT: intubated Respiratory: clear to auscultation Cardiovascular: regular rate and rhythm Gastrointestinal: soft; No distended Musculoskeletal: nl extremities to inspection Results Results 24hrs Laboratory Tests Test 12/19/18 04:30 12/19/18 04:58 White Blood Count 3.5 #L Red Blood Count 3.35 L Hemoglobin 9.6 L Hematocrit 30.2 L Mean Corpuscular Volume 90.1 Mean Corpuscular Hemoglobin 28.7 L Mean Corpuscular Hemoglobin Concent 31.8 L Red Cell Distribution Width 14.9 H Platelet Count 173 Mean Platelet Volume 10.6 H Immature Granulocytes % 0.300 Neutrophils % Segmented Neutrophils % (Manual) 14 L Band Neutrophils % (Manual) 22 H Lymphocytes % Lymphocytes % (Manual) 22 Reactive Lymphocytes % (Manual) 20 H Monocytes % Monocytes % (Manual) 14 H Eosinophils % Eosinophils % (Manual) 2 Basophils % Basophils % (Manual) 2 Metamyelocytes % (manual) 2 H Myelocytes % (Manual) 2 H Nucleated Red Blood Cells % 1 H Immature Granulocytes # 0.010 Neutrophils # Neutrophils # (Manual) 0.5 L Band Neutrophils # 0.7 H Lymphocytes (Manual) 0.7 L Lymphocytes # Reactive Lymphocytes # 0.7 H Monocytes # Monocytes # (Manual) 0.4 Eosinophils # Basophils # Basophils # (Manual) 0.0 Metamyelocytes # 0.0 Myelocytes # 0.0 Nucleated Red Blood Cells # Platelet Estimate NORMAL Giant Platelets 2 H Polychromasia 3+ Poikilocytosis 2+ Anisocytosis 2+ Microcytosis 2+ Sodium Level 144 Potassium Level 4.0 Chloride Level 115 H Carbon Dioxide Level 19 L Anion Gap 10 Blood Urea Nitrogen 20 Creatinine 1.21 Est Glomerular Filtrat Rate mL/min Glucose Level 110 Calcium Level 8.2 L Phosphorus Level 5.4 #H Magnesium Level 1.7 Lab Scanned Report BLOOD TRANSFUSION Medications Medication Current Medications Levetiracetam 100 ml @ 400 mls/hr BID IVPB Last administered on 12/19/18 08:0 7; Admin Dose 400 MLS/HR; Start 12/15/18 at 14:00 Ondansetron HCl (Zofran Inj) 4 mg Q6H PRN IV NAUSEA/VOMITING; Start 12/15/18 at 18:00 Pantoprazole (Protonix Iv) 40 mg DAILY@06 IV Last administered on 12/19/18 05:31; Admin Dose 40 MG; Start 12/16/18 at 06:00 Naloxone HCl (Narcan) 0.2 mg Q2M PRN IV .RR 8 BREATHS/MIN OR LESS; Start 12/15/18 at 18:00 Potassium Chloride/Sodium Chloride 1,000 ml @ 100 mls/hr Q10H IV Last administered on 12/19/18 06:57; Admin Dose 100 MLS/HR; Start 12/15/18 at 19:30 Neomycin/ Polymyxin/ Bacitracin (Neosporin Topical Oint) 1 applic BID TOP Last administered on 12/19/18 08:09; Admin Dose 1 APPLIC; Start 12/15/18 at 21:00 Propofol 100 ml @ 2.25 mls/hr Q12H IV Last administered on 12/19/18 13:55; Admin Dose 4.5 MLS/HR; Start 12/15/18 at 19:00 Nicardipine HCl 50 mg/Sodium Chloride 500 ml @ 0 mls/hr TITRATE IV Last administered on 12/19/18 00:54; Admin Dose 50 MLS/HR; Start 12/16/18 at 12:00 Hydralazine HCl (Apresoline) 10 mg Q6H PRN IV ELEVATED BLOOD PRESSURE Last administered on 12/16/18 17:24; Admin Dose 10 MG; Start 12/16/18 at 17:00 Acetaminophen (Tylenol Liquid) 650 mg Q4H PRN NGT MILD PAIN(1-3)OR ELEVATED TEMP Last administered on 12/18/18 19:32; Admin Dose 650 MG; Start 12/16/18 at 21:00 Fentanyl 100 ml @ 2.5 mls/hr TITRATE IV Last administered on 12/19/18 04:30; Admin Dose 10 MLS/HR; Start 12/16/18 at 22:30 Acetaminophen/ Hydrocodone Bitart ([place] (5/325)) 1 tab Q6H PRN PO MODERATE PAIN LEVEL 4-6 Last administered on 12/19/18 00:47; Admin Dose 1 TAB; Start 12/17/18 at 12:30 Hydromorphone HCl (Dilaudid) 0.4 mg Q1H PRN IV PAIN Last administered on 12/19/18 02:55; Admin Dose 0.4 MG; Start 12/19/18 at 00:00 Aztreonam 2 gm/ Sodium Chloride 100 ml @ 100 mls/hr Q8 IVPB Last administered on 12/19/18 12:07; Admin Dose 100 MLS/HR; Start 12/19/18 at 11:00 MARLEE MAGAÑA Dec 19, 2018 14:59
[2018-12-19] MEDS ORDERED: FUROSEMIDE 40 MG INJ IV ONE (19:30)
--- NOTE | 2018-12-19 23:40 | PN ---
Date/Time of Note Date/Time of Note DATE: 12/19/18 TIME: 23:39 Copies To: Assessment/Plan Date of progress note: 12/19/2018 The patient remains in the ICU in a critically ill condition. He is intubated and on a ventilator. He gets agitated with increasing blood pressure off of sedation (fentanyl and propofol). He has required Cardene on a when necessary basis for raise blood pressure. Earlier the patient had become hypotensive although his hemoglobin has remained stable over 9. His blood pressure improved after receiving fluid bolus. The ventriculostomy drainage has become more serous over time and the output is about 6-8 cc every hour at the level of foramen of Carl. The right frontal intraparenchymal drain output has significantly diminished to about 10 cc or so per nursing since but still remains dark red. On exam, the patient's pupils are 2 mm bilaterally. There is a weak corneal reflex. Off sedation, there is a weak cough and gag. The patient does spontaneous rhythmic internal rotation of his shoulders. However there is no movement (including typical extensor or flexor posturing) of the upper or lower extremities to deep pain. He does not open his eyes to voice or pain. His latest serum sodium is now 144. His PCO2 has been between [address] of the head from yesterday shows some decrease of his right frontal intraparenchymal hematoma compared to the day before and this is likely related to the drainage of the recurrent hematoma through the right frontal intraparenchymal drain. The right to left midline shift is improved. There is no gross evidence of transependymal herniation. The lateral ventricles are small and decompressed by the left frontal ventriculostomy drain. Assessment and plan: The patient remains in critically ill state in a deep coma. He is receiving full supportive care. There is no further acute neurosurgical intervention possible unfortunately. The ventriculostomy and the right frontal intraparenchymal drain will be continued. I am told by the patient's nurse that there is a family conference scheduled for tomorrow. From a neurosurgical perspective, if the family wishes it would be reasonable to allow a few more days of supportive care before the patient is again reassessed for his neurologic state and prior to the family making further decisions about continued supportive care versus comfort care. As I have also indicated to the patient's nurse, I will be available should the family have any further questions from a neurosurgical perspective. BRYN PNIK MD Dec 19, 2018 23:40
[2018-12-20] VITALS (53 sets, daily range): BP systolic 108–164; BP diastolic 43–87; PULSE 90–130; RESP 21–37
[2018-12-20] MEDS: PROPOFOL 100 ML IV SCH ×2 (00:40→18:12)
[2018-12-20] MEDS: NS + KCL 20 MEQ 1,000 ML IV SCH (03:00)
[2018-12-20] MEDS: PANTOPRAZOLE 40 MG INJ IV SCH (05:29)
[2018-12-20] MEDS: HYDROmorphONE 0.5 MG/0.5 ML SYG IV PRN ×4 (05:30→18:12)
[2018-12-20] MEDS: AZTREONAM 2 GM in SOD CHLORIDE 0.9% 100 ML IVPB SCH ×3 (05:30→21:30)
[2018-12-20] MEDS: LEVETIRACETAM 500 MG (PMX) 100 ML IVPB SCH (07:59)
[2018-12-20] MEDS: FENTAnyl (DRIP) 1000 mcg/100mL 100 ML IV SCH ×2 (08:05→22:12)
[2018-12-20] MEDS: NEOMYC/POLYMYX/BACIT 30 GM OINT TOP SCH ×2 (08:07→21:28)
--- NOTE | 2018-12-20 09:38 | CONS ---
Assessment/Plan Assessment/Plan Assessment/Plan (Daily) Ventilator setting; AC of 20, tidal volume 550, PEEP of 5, 70% FiO2. Patient is currently on fentanyl 75 mics per hour, propofol 10 mics per kilogram per minute. Chest x-ray from today showing extensive bilateral pneumonia more pronounced in right lung. Assessment recommendations; 1. Patient admitted with altered mental status due to acute intracranial bleed status post craniotomy with ventriculostomy. 2. Extensive bilateral pneumonia. 3. Mild acute renal insufficiency. 4. History of hypertension. 5. No overt seizure activity reported. Add vancomycin per pharmacy. Increase PEEP to 10. Family to decide about further plan of care around 2:00 today. Prognosis appears very poor. 35 minutes of critical care time was spent evaluating the patient. Consultation Date/Type/Reason Admit Date/Time Dec 15, 2018 at 11:55 Initial Consult Date Type of Consult Pulmonary/critical care Patient's condition remains critical. Patient however has remained hemodynamically stable. No overt seizure activity reported. Patient having low-grade fever. General exam; elderly male, orally intubated, sedated, currently in no distress. Requesting Provider: CASSANDRA WHITE MD Date/Time of Note DATE: 12/20/18 TIME: 09:35 24 HR Interval Summary Free Text/Dictation Patient's condition remains critical. Patient is getting progressively more hypoxemic. General exam; elderly male, orally intubated, sedated, currently in no distress. Exam/Review of Systems Exam Vitals Vital Signs Date Temp Pulse Resp B/P (MAP) Pulse Ox O2 O2 Flow FiO2 Time Delivery Rate 12/20/18 90 26 110/56 99 09:00 (74) 12/20/18 70 08:54 12/20/18 98.5 Mechanical 08:00 Ventilator Intake and Output 12/19/18 12/19/18 12/20/18 1515:00 23:00 07:00 IntakeIntake Total 1412.0 ml 1797.0 ml 1510.0 ml OutputOutput Total 220 ml 1760 ml 1090 ml BalanceBalance 1192.0 ml 37.0 ml 420.0 ml Exam H EENT exam; supple neck, no JVD. No lymphadenopathy. Midline trachea. No thyromegaly. Pupils are small bilaterally. Orally intubated. Patient does have carious teeth. Left parietal ventriculostomy in place. Cranial briseyda are in place. Chest exam; omitted breath sounds bilaterally. S1-S2 audible, no murmurs. Regular rhythm. Abdomen exam; soft, no organomegaly. Nondistended. Bowel sounds audible. Extremity exam; trace edema. [employer] exam; patient is sedated. Results Result Diagram: 12/20/189 12/20/189 Results 24hrs Laboratory Tests Test 12/20/18 04:49 White Blood Count 8.1 # Red Blood Count 3.33 L Hemoglobin 9.7 L Hematocrit 30.7 L Mean Corpuscular Volume 92.2 Mean Corpuscular Hemoglobin 29.1 Mean Corpuscular Hemoglobin Concent 31.6 L Red Cell Distribution Width 15.2 H Platelet Count 203 Mean Platelet Volume 10.9 H Immature Granulocytes % 2.000 H Neutrophils % Segmented Neutrophils % (Manual) 15 L Band Neutrophils % (Manual) 47 H Lymphocytes % Lymphocytes % (Manual) 7 L Monocytes % Monocytes % (Manual) 7 Eosinophils % Basophils % Metamyelocytes % (manual) 12 H Myelocytes % (Manual) 11 H Promyelocytes % (Manual) 1 H Nucleated Red Blood Cells % 1 H Immature Granulocytes # 0.160 H Neutrophils # Neutrophils # (Manual) 1.5 L Band Neutrophils # 3.8 H Lymphocytes (Manual) 0.5 L Lymphocytes # Monocytes # Monocytes # (Manual) 0.5 Eosinophils # Basophils # Metamyelocytes # 0.9 H Myelocytes # 0.8 H Promyelocytes # 0.0 Nucleated Red Blood Cells # Platelet Estimate NORMAL Giant Platelets 1 H Polychromasia 1+ Poikilocytosis 1+ Anisocytosis 1+ Microcytosis 1+ Sodium Level 145 H Potassium Level 5.4 H Chloride Level 114 H Carbon Dioxide Level 21 Anion Gap 10 Blood Urea Nitrogen 33 #H Creatinine 1.29 H Est Glomerular Filtrat Rate mL/min Glucose Level 122 Calcium Level 8.0 L Medications Medication Current Medications Levetiracetam 100 ml @ 400 mls/hr BID IVPB Last administered on 12/20/18at 07:59; Admin Dose 400 MLS/HR; Start 12/15/18 at 14:00 Ondansetron HCl (Zofran Inj) 4 mg Q6H PRN IV NAUSEA/VOMITING; Start 12/15/18 at 18:00 Pantoprazole (Protonix Iv) 40 mg DAILY@06 IV Last administered on 12/20/18 05:29; Admin Dose 40 MG; Start 12/16/18 at 06:00 Naloxone HCl (Narcan) 0.2 mg Q2M PRN IV .RR 8 BREATHS/MIN OR LESS; Start 12/15/18 at 18:00 Potassium Chloride/Sodium Chloride 1,000 ml @ 100 mls/hr Q10H IV Last administered on 12/20/18 03:00; Admin Dose 100 MLS/HR; Start 12/15/18 at 19:30 Neomycin/ Polymyxin/ Bacitracin (Neosporin Topical Oint) 1 applic BID TOP Last administered on 12/20/18 08:07; Admin Dose 1 APPLIC; Start 12/15/18 at 21:00 Propofol 100 ml @ 2.25 mls/hr Q12H IV Last administered on 12/20/18 00:40; Admin Dose 9 MLS/HR; Start 12/15/18 at 19:00 Nicardipine HCl 50 mg/Sodium Chloride 500 ml @ 0 mls/hr TITRATE IV Last administered on 12/19/18 00:54; Admin Dose 50 MLS/HR; Start 12/16/18 at 12:00 Hydralazine HCl (Apresoline) 10 mg Q6H PRN IV ELEVATED BLOOD PRESSURE Last administered on 12/16/18 17:24; Admin Dose 10 MG; Start 12/16/18 at 17:00 Acetaminophen (Tylenol Liquid) 650 mg Q4H PRN NGT MILD PAIN(1-3)OR ELEVATED TEMP Last administered on 12/18/18 19:32; Admin Dose 650 MG; Start 12/16/18 at 21:00 Fentanyl 100 ml @ 2.5 mls/hr TITRATE IV Last administered on 12/20/18 08:05; Admin Dose 7.5 MLS/HR; Start 12/16/18 at 22:30 Acetaminophen/ Hydrocodone Bitart (Loving (5/325)) 1 tab Q6H PRN PO MODERATE PAIN LEVEL 4-6 Last administered on 12/19/18 00:47; Admin Dose 1 TAB; Start 12/17/18 at 12:30 Hydromorphone HCl (Dilaudid) 0.4 mg Q1H PRN IV PAIN Last administered on 12/20/18 05:30; Admin Dose 0.4 MG; Start 12/19/18 at 00:00 Aztreonam 2 gm/ Sodium Chloride 100 ml @ 100 mls/hr Q8 IVPB Last administered on 12/20/18at 05:30; Admin Dose 100 MLS/HR; Start 12/19/18 at 11:00 PARAMJIT DORSEY Dec 20, 2018 09:38
[2018-12-20] MEDS ORDERED: SOD CHLORIDE 0.45% 1,000 ML IV SCH (10:00)
[2018-12-20] MEDS ORDERED: VANCOMYCIN IV PER PHARMACY XX SCH (11:00)
[2018-12-20] MEDS ORDERED: VANCOMYCIN HCL 1.25 GM in SOD CHLORIDE 0.9% 250 ML IVPB SCH (11:00)
--- NOTE | 2018-12-20 15:03 | CONS ---
Assessment/Plan Assessment/Plan Hospital Course 73 M c/ reported Hx of HTN, who is admitted to the [facility] ICU for management of acute cerebral hemorrhage...for which neurology is consulted.. s/p emergent neurosurgery on 12/15 P: Post-op management per neurosurgery Increase Keppra 750mg iv bid for now Ativan iv prn prolonged seizure Strict BP control (SBP < 160) Hold antiplatelets and anticoagulants Goals of care and other management per primary Will follow clinically Consultation Date/Type/Reason Admit Date/Time Dec 15, 2018 at 11:55 Type of Consult Neurology Reason for Consultation ICH Requesting Provider: CASSANDRA WHITE MD Date/Time of Note DATE: 12/20/18 TIME: 15:03 24 HR Interval Summary Free Text/Dictation Continues icu care Subjective hx not possible: pt non-verbal, pt critical Exam Vital Signs Vitals Vital Signs Date Temp Pulse Resp B/P (MAP) Pulse Ox O2 O2 Flow FiO2 Time Delivery Rate 12/20/18 100 25 148/67 97 14:00 (94) 12/20/18 60 13:33 12/20/18 98.8 Mechanical 12:00 Ventilator Intake and Output 12/19/18 12/19/18 12/20/18 1515:00 23:00 07:00 IntakeIntake Total 1412.0 ml 1797.0 ml 1510.0 ml OutputOutput Total 220 ml 1760 ml 1090 ml BalanceBalance 1192.0 ml 37.0 ml 420.0 ml Exam PE: Gen Appearance: No Apparent Distress HEENT: Intubated; L frontal EVD, R frontal intraparenchymal drain Cardiovascular: Regular rate Abdomen: Soft Extremities: Dry NE: The patient was comatose... Cranial nerve examination was limited by mental status. Pupils were equal and reactive to light. There was no afferent pupillary defect. Funduscopic ex amination was limited. Face was grossly symmetric, w/ present corneal and cough reflexes. Tone was normal. Muscle bulk was normal. The pt had spontaneous internal rotation of his arms/shoulders. The pt did not withdraw to noxious stimuli. Coordination and gait testing was limited by mental status. Arm and leg reflexes were symmetric. Munoz's sign was absent. Plantar responses were flexor. VICK DIEHL NP Dec 20, 2018 15:03 PARTHA MILLER Dec 20, 2018 15:59
[2018-12-20] MEDS: hydrALAzine 20 MG INJ IV PRN (15:04)
--- NOTE | 2018-12-20 15:48 | PN ---
Date/Time of Note Date/Time of Note DATE: 12/20/18 TIME: 15:24 Assessment/Plan VTE Prophylaxis Risk score (from Ns)>0 risk: 11 SCD applied (from [facility]): Yes Pharmacological prophylaxis: NA/contraindicated Pharm contraindication: bleeding Assessment/Plan Hospital Course 73 yo male who presents with obtundation acute and found to have hemorrhagic stroke/ICH with severe hypertension. Right frontoparietal craniotomy for evacuation of ICH and left frontal ventriculostomy NEURO: ICH - Management per Dr Ruby, recommendation is to monitor neurological status for the next several days - s/p Right frontoparietal craniotomy for evacuation of ICH and Left frontal ventriculostomy 12/15 - HOB > 30 - Na goal 145-150 - Keppra ppx -Repeat CT head shows mild improvement in hematoma size -Patient with minimal reflexes off sedation, still not following commands CV: hypertension - Cardene drip discontinued secondary to hypotension -Status post IV fluid bolus for hypotension, BP now stable PULM: Acute respiratory failure secondary to intracranial hemorrhage with development of multifocal pneumonia - MV per pulmonary -Broad-spectrum antibiotics RENAL CKD III - Monitor creatine Therapeutic hypernatremia HEME Acute blood loss anemia: -Monitor ID Multifocal pneumonia -Continue IV antibiotics DNR Prophylaxis: SCDs DC planning: Family conference held today, family would like to monitor neurological status for several more days prior to making any decisions about terminal extubation, family is very realistic about prognosis and do not want patient to live in a vegetative state, family leaning towards terminal ext ubation by sometime early next week if condition does not improve Result Diagram: 12/20/18 0449 12/20/189 Results 24hrs Laboratory Tests Test 12/20/18 04:49 White Blood Count 8.1 # Red Blood Count 3.33 L Hemoglobin 9.7 L Hematocrit 30.7 L Mean Corpuscular Volume 92.2 Mean Corpuscular Hemoglobin 29.1 Mean Corpuscular Hemoglobin Concent 31.6 L Red Cell Distribution Width 15.2 H Platelet Count 203 Mean Platelet Volume 10.9 H Immature Granulocytes % 2.000 H Neutrophils % Segmented Neutrophils % (Manual) 15 L Band Neutrophils % (Manual) 47 H Lymphocytes % Lymphocytes % (Manual) 7 L Monocytes % Monocytes % (Manual) 7 Eosinophils % Basophils % Metamyelocytes % (manual) 12 H Myelocytes % (Manual) 11 H Promyelocytes % (Manual) 1 H Nucleated Red Blood Cells % 1 H Immature Granulocytes # 0.160 H Neutrophils # Neutrophils # (Manual) 1.5 L Band Neutrophils # 3.8 H Lymphocytes (Manual) 0.5 L Lymphocytes # Monocytes # Monocytes # (Manual) 0.5 Eosinophils # Basophils # Metamyelocytes # 0.9 H Myelocytes # 0.8 H Promyelocytes # 0.0 Nucleated Red Blood Cells # Platelet Estimate NORMAL Giant Platelets 1 H Polychromasia 1+ Poikilocytosis 1+ Anisocytosis 1+ Microcytosis 1+ Sodium Level 145 H Potassium Level 5.4 H Chloride Level 114 H Carbon Dioxide Level 21 Anion Gap 10 Blood Urea Nitrogen 33 #H Creatinine 1.29 H Est Glomerular Filtrat Rate mL/min Glucose Level 122 Calcium Level 8.0 L Subjective 24 Hr Interval Summary Subjective hx not possible: pt non-verbal Exam/Review of Systems Exam Vitals Vital Signs Date Temp Pulse Resp B/P (MAP) Pulse Ox O2 O2 Flow FiO2 Time Delivery Rate 12/20/18 100 24 94 60 15:00 12/20/18 148/67 14:00 (94) 12/20/18 98.8 Mechanical 12:00 Ventilator Intake and Output 12/19/18 12/19/18 12/20/18 1515:00 23:00 07:00 IntakeIntake Total 1412.0 ml 1797.0 ml 1510.0 ml OutputOutput Total 220 ml 1760 ml 1090 ml BalanceBalance 1192.0 ml 37.0 ml 420.0 ml Constitutional: non-verbal ENMT: intubated Respiratory: clear to auscultation Cardiovascular: regular rate and rhythm Gastrointestinal: soft; No distended Musculoskeletal: nl extremities to inspection Results Results 24hrs Laboratory Tests Test 12/20/18 04:49 White Blood Count 8.1 # Red Blood Count 3.33 L Hemoglobin 9.7 L Hematocrit 30.7 L Mean Corpuscular Volume 92.2 Mean Corpuscular Hemoglobin 29.1 Mean Corpuscular Hemoglobin Concent 31.6 L Red Cell Distribution Width 15.2 H Platelet Count 203 Mean Platelet Volume 10.9 H Immature Granulocytes % 2.000 H Neutrophils % Segmented Neutrophils % (Manual) 15 L Band Neutrophils % (Manual) 47 H Lymphocytes % Lymphocytes % (Manual) 7 L Monocytes % Monocytes % (Manual) 7 Eosinophils % Basophils % Metamyelocytes % (manual) 12 H Myelocytes % (Manual) 11 H Promyelocytes % (Manual) 1 H Nucleated Red Blood Cells % 1 H Immature Granulocytes # 0.160 H Neutrophils # Neutrophils # (Manual) 1.5 L Band Neutrophils # 3.8 H Lymphocytes (Manual) 0.5 L Lymphocytes # Monocytes # Monocytes # (Manual) 0.5 Eosinophils # Basophils # Metamyelocytes # 0.9 H Myelocytes # 0.8 H Promyelocytes # 0.0 Nucleated Red Blood Cells # Platelet Estimate NORMAL Giant Platelets 1 H Polychromasia 1+ Poikilocytosis 1+ Anisocytosis 1+ Microcytosis 1+ Sodium Level 145 H Potassium Level 5.4 H Chloride Level 114 H Carbon Dioxide Level 21 Anion Gap 10 Blood Urea Nitrogen 33 #H Creatinine 1.29 H Est Glomerular Filtrat Rate mL/min Glucose Level 122 Calcium Level 8.0 L Medications Medication Current Medications Levetiracetam 100 ml @ 400 mls/hr BID IVPB Last administered on 12/20/18 07:59; Admin Dose 400 MLS/HR; Start 12/15/18 at 14:00 Ondansetron HCl (Zofran Inj) 4 mg Q6H PRN IV NAUSEA/VOMITING; Start 12/15/18 at 18:00 Pantoprazole (Protonix Iv) 40 mg DAILY@06 IV Last administered on 12/20/18 05:29; Admin Dose 40 MG; Start 12/16/18 at 06:00 Naloxone HCl (Narcan) 0.2 mg Q2M PRN IV .RR 8 BREATHS/MIN OR LESS; Start 9 at 18:00 Neomycin/ Polymyxin/ Bacitracin (Neosporin Topical Oint) 1 applic BID TOP Last administered on 12/20/18at 08:07; Admin Dose 1 APPLIC; Start 12/15/18 at 21:00 Propofol 100 ml @ 2.25 mls/hr Q12H IV Last administered on 12/20/18 00:40; Admin Dose 9 MLS/HR; Start 12/15/18 at 19:00 Nicardipine HCl 50 mg/Sodium Chloride 500 ml @ 0 mls/hr TITRATE IV Last administered on 12/19/18 00:54; Admin Dose 50 MLS/HR; Start 12/16/18 at 12:00 Hydralazine HCl (Apresoline) 10 mg Q6H PRN IV ELEVATED BLOOD PRESSURE Last administered on 12/20/18 15:04; Admin Dose 10 MG; Start 12/16/18 at 17:00 Acetaminophen (Tylenol Liquid) 650 mg Q4H PRN NGT MILD PAIN(1-3)OR ELEVATED TEMP Last administered on 12/18/18 19:32; Admin Dose 650 MG; Start 12/16/18 at 21:00 Fentanyl 100 ml @ 2.5 mls/hr TITRATE IV Last administered on 12/20/18 08:05; Admin Dose 7.5 MLS/HR; Start 12/16/18 at 22:30 Acetaminophen/ Hydrocodone Bitart ([place] (5/325)) 1 tab Q6H PRN PO MODERATE PAIN LEVEL 4-6 Last administered on 12/19/18 00:47; Admin Dose 1 TAB; Start 12/17/18 at 12:30 Hydromorphone HCl (Dilaudid) 0.4 mg Q1H PRN IV PAIN Last administered on 12/20/18 12:25; Admin Dose 0.4 MG; Start 12/19/18 at 00:00 Aztreonam 2 gm/ Sodium Chloride 100 ml @ 100 mls/hr Q8 IVPB Last administered on 12/20/18 15:16; Admin Dose 100 MLS/HR; Start 12/19/18 at 11:00 Vancomycin HCl (Vanco Iv Per Pharmacy) VANCOMYCIN PER PHARMACY PER PROTOCOL XX ; Start 12/20/18 at 11:00 Sodium Chloride 1,000 ml @ 75 mls/hr [id number] IV Last administered on 12/20/18at 10:00; Admin Dose 75 MLS/HR; Start 12/20/18 at 10:00 Vancomycin HCl 100 ml @ 100 mls/hr Q12H IVPB ; Start 12/20/18 at 23:00 MARLEE MAGAÑA Dec 20, 2018 15:38
[2018-12-20] MEDS ORDERED: LORAZEPAM 2 MG INJ IV ONE (16:00)
[2018-12-20] MEDS: LEVETIRACETAM IV 750 MG in DEXTROSE 5% 100 ML IVPB SCH (21:30)
[2018-12-20] MEDS: VANCOMYCIN 500 MG (PMX) 100 ML IVPB SCH (22:13)
[2018-12-20] MEDS: niCARdipine 50 MG in SOD CHLORIDE 0.9% 480 ML IV SCH (23:15)
[2018-12-21] VITALS (48 sets, daily range): BP systolic 84–145; BP diastolic 47–67; PULSE 80–105; RESP 23–41
[2018-12-21] MEDS: HYDROmorphONE 0.5 MG/0.5 ML SYG IV PRN (00:47)
[2018-12-21] MEDS ORDERED: LORAZEPAM 2 MG INJ ONE (01:18)
[2018-12-21] MEDS: PROPOFOL 100 ML IV SCH ×4 (01:27→23:16)
[2018-12-21] MEDS ORDERED: LORAZEPAM 2 MG INJ IV ONE (01:30)
[2018-12-21] MEDS: MIDAZOLAM (DRIP) 50 mg/50 mL 50 ML IV SCH ×5 (02:00→23:23)
[2018-12-21] MEDS: AZTREONAM 2 GM in SOD CHLORIDE 0.9% 100 ML IVPB SCH ×3 (05:17→22:14)
[2018-12-21] MEDS: LANSOPRAZOLE 30 MG CAP GTB SCH (05:26)
--- NOTE | 2018-12-21 09:47 | CONS ---
Assessment/Plan Assessment/Plan Assessment/Plan (Daily) Ventilator setting; AC of 14, tidal volume 550, PEEP of 10, 80% FiO2. Patient is currently on propofol 30 mics per kilogram per minute, fentanyl 75 mics per hour, Versed 10 mg/h. Chest x-ray from today showing extensive pneumonia with significant right-sided involvement. Assessment recommendations; 1. Patient admitted with altered mental status due to intracranial bleed status post craniotomy and ventriculostomy placement. 2. Extensive bilateral pneumonia H CAP. Currently on appropriate antimicrobial regimen. 3. Anemia and thrombocytopenia. 4. Acute renal injury with improving renal function. 5. History of hypertension. 6. No overt seizure activity reported. Patient maintained on Keppra. Continue current supportive care. Prognosis appears extremely poor. Hospice should be considered. Obtain follow-up chest x-ray 24 hours. Wean down FiO2 as tolerated. Monitor renal function. 35 minutes of critical care time was spent evaluating the patient. Consultation Date/Type/Reason Admit Date/Time Dec 15, 2018 at 11:55 Initial Consult Date Type of Consult Pulmonary/critical care Patient's condition remains critical. Patient however has remained hemodynamically stable. No overt seizure activity reported. Patient having low-grade fever. General exam; elderly male, orally intubated, sedated, currently in no distress. Requesting Provider: CASSANDRA WHITE MD Date/Time of Note DATE: 12/21/18 TIME: 09:43 24 HR Interval Summary Free Text/Dictation Patient's condition remains extremely critical. On high FiO2 for hypoxemia. No overt seizure activity reported. Patient however has remained hemodynamically stable. General exam; elderly male, orally intubated, sedated, currently no distress. Exam/Review of Systems Exam Vitals Vital Signs Date Temp Pulse Resp B/P (MAP) Pulse Ox O2 O2 Flow FiO2 Time Delivery Rate 12/21/18 89 30 100 80 08:07 12/21/18 110/56 Mechanical 06:00 (74) Ventilator 12/21/18 98.0 04:00 Intake and Output 12/20/18 12/20/18 12/21/18 1515:00 23:00 07:00 IntakeIntake Total 1455.5 ml 1559.5 ml 880.0 ml OutputOutput Total 922 ml 523 ml 397 ml BalanceBalance 533.5 ml 1036.5 ml 483.0 ml Exam HEENT exam; supple neck, no JVD. No lymphadenopathy. Midline trachea. No thyromegaly. Orally intubated. Left parietal ventriculostomy in place. Davison applied to craniotomy incision. Pupils are small bilaterally. Nasogastric tube in place. Chest exam; diminished breath sounds bilaterally. S1-S2 audible, no murmurs. Regular rhythm. Abdomen exam; soft, nondistended. No organomegaly. Bowel sounds are audible. Extremity exam; trace edema. Pulses 1+. EN[employer]MENT[employer] HE[employer] OFFICER exam; patient is sedated. Results Result Diagram: 12/21/18 0430 12/21/18 0430 Results 24hrs Laboratory Tests Test 12/21/18 02:24 12/21/18 04:30 Blood Gas Specimen Source Blood arterial Arterial Blood Date Drawn 12/21/2018 2:38:12 AM Arterial Blood pH (Temp corrected) 7.345 L Arterial Blood pCO2 (Temp correct) 35.5 Arterial Blood pO2 (Temp corrected) 122.1 H Arterial Blood HCO3 18.9 L Arterial Blood Base Excess -6.1 L Arterial Blood Oxygen Saturation 98.3 Vipin Test N/A Arterial Blood Gas Puncture Site A-Line Arterial Blood Carboxyhemoglobin 0.3 Arterial Blood Methemoglobin 0.2 Blood Gas A-a O2 Differential 555.4 H Oxyhemoglobin Percent 97.8 Blood Gas Temperature 37.0 Blood Gas Respiration Rate 20.0 Blood Gas Actual Respiration Rate 38 Blood Gas Modality VENT - AC FiO2 100.0 Blood Gas Tidal Volume 550.0 Blood Gas Low PEEP Setting 10.0 Blood Gas Inspiratory Pressure 44.0 Blood Gas Notified Leilani KEBEDE RCP Blood Gas Notified Time 12/21/2018 2:49:43 AM White Blood Count 10.3 # Red Blood Count 2.87 L Hemoglobin 8.3 L Hematocrit 26.3 L Mean Corpuscular Volume 91.6 Mean Corpuscular Hemoglobin 28.9 L Mean Corpuscular Hemoglobin Concent 31.6 L Red Cell Distribution Width 15.3 H Platelet Count 196 Mean Platelet Volume 11.5 H Immature Granulocytes % 0.200 Neutrophils % Segmented Neutrophils % (Manual) 36 L Band Neutrophils % (Manual) 47 H Lymphocytes % Lymphocytes % (Manual) 2 L Monocytes % Monocytes % (Manual) 1 Eosinophils % Eosinophils % (Manual) 1 Basophils % Basophils % (Manual) 1 Metamyelocytes % (manual) 1 H Myelocytes % (Manual) 11 H Nucleated Red Blood Cells % 0.3 H Immature Granulocytes # 0.020 Neutrophils # Neutrophils # (Manual) 4.2 Band Neutrophils # 4.8 H Lymphocytes (Manual) 0.2 L Lymphocytes # Monocytes # Monocytes # (Manual) 0.1 L Eosinophils # Basophils # Basophils # (Manual) 0.1 H Metamyelocytes # 0.1 H Myelocytes # 1.1 H Nucleated Red Blood Cells # Toxic Granulation 1+ Platelet Estimate NORMAL Giant Platelets 8 H Poikilocytosis 1+ Tear Drop Cells 1+ Ovalocytes 1+ Sodium Level 144 Potassium Level 4.7 Chloride Level 116 H Carbon Dioxide Level 21 Anion Gap 7 Blood Urea Nitrogen 47 #H Creatinine 1.24 Est Glomerular Filtrat Rate mL/min Glucose Level 146 Calcium Level 8.1 L Medications Medication Current Medications Ondansetron HCl (Zofran Inj) 4 mg Q6H PRN IV NAUSEA/VOMITING; Start 12/15/18 at 18:00 Naloxone HCl (Narcan) 0.2 mg Q2M PRN IV .RR 8 BREATHS/MIN OR LESS; Start 12/15/18 at 18:00 Neomycin/ Polymyxin/ Bacitracin (Neosporin Topical Oint) 1 applic BID TOP Last administered on 12/20/18at 21:28; Admin Dose 1 APPLIC; Start 12/15/18 at 21:00 Propofol 100 ml @ 2.25 mls/hr Q12H IV Last administered on 12/21/18at 07:06; Admin Dose 13.5 MLS/HR; Start 12/15/18 at 19:00 Nicardipine HCl 50 mg/Sodium Chloride 500 ml @ 0 mls/hr TITRATE IV Last administered on 12/20/18at 23:15; Admin Dose 70 MLS/HR; Start 12/16/18 at 12:00 Hydralazine HCl (Apresoline) 10 mg Q6H PRN IV ELEVATED BLOOD PRESSURE Last administered on 12/20/18at 15:04; Admin Dose 10 MG; Start 12/16/18 at 17:00 Acetaminophen (Tylenol Liquid) 650 mg Q4H PRN NGT MILD PAIN(1-3)OR ELEVATED TEMP Last administered on 12/18/18at 19:32; Admin Dose 650 MG; Start 12/16/18 at 21:00 Fentanyl 100 ml @ 2.5 mls/hr TITRATE IV Last administered on 12/20/18 22:12; Admin Dose 7.5 MLS/HR; Start 12/16/18 at 22:30 Acetaminophen/ Hydrocodone Bitart ([place] (5/325)) 1 tab Q6H PRN PO MODERATE PAIN LEVEL 4-6 Last administered on 12/19/18 00:47; Admin Dose 1 TAB; Start 12/17/18 at 12:30 Hydromorphone HCl (Dilaudid) 0.4 mg Q1H PRN IV PAIN Last administered on 12/21/18 00:47; Admin Dose 0.4 MG; Start 12/19/18 at 00:00 Aztreonam 2 gm/ Sodium Chloride 100 ml @ 100 mls/hr Q8 IVPB Last administered on 12/21/18 05:17; Admin Dose 100 MLS/HR; Start 12/19/18 at 11:00 Vancomycin HCl (Vanco Iv Per Pharmacy) VANCOMYCIN PER PHARMACY PER PROTOCOL XX ; Start 12/20/18 at 11:00 Vancomycin HCl 100 ml @ 100 mls/hr Q12H IVPB Last administered on 12/20/18 22:13; Admin Dose 100 MLS/HR; Start 12/20/18 at 23:00 Levetiracetam 750 mg/Dextrose 107.5 ml @ 430 mls/hr Q12 IVPB Last administered on 12/20/18 21:30; Admin Dose 430 MLS/HR; Start 12/20/18 at 21:00 Lansoprazole (Prevacid) 30 mg DAILY@06 GTB Last administered on 12/21/18 05:26; Admin Dose 30 MG; Start 12/21/18 at 06:00 Midazolam HCl 50 ml @ 1 mls/hr TITRATE IV Last administered on 12/21/18 05:17; Admin Dose 10 MLS/HR; Start 12/21/18 at 02:00 PARAMJIT DORSEY 14, 2019 09:47
[2018-12-21] MEDS: LEVETIRACETAM IV 750 MG in DEXTROSE 5% 100 ML IVPB SCH ×2 (10:29→21:34)
[2018-12-21] MEDS: NEOMYC/POLYMYX/BACIT 30 GM OINT TOP SCH ×2 (10:30→21:34)
[2018-12-21] MEDS: FENTAnyl (DRIP) 1000 mcg/100mL 100 ML IV SCH ×2 (11:25→23:22)
[2018-12-21] MEDS: VANCOMYCIN 500 MG (PMX) 100 ML IVPB SCH ×2 (11:58→23:15)
--- NOTE | 2018-12-21 12:23 | PN ---
Date/Time of Note Date/Time of Note DATE: 12/21/18 TIME: 12:21 Assessment/Plan VTE Prophylaxis Risk score (from Ns)>0 risk: 19 SCD applied (from Ns): Yes Pharmacological prophylaxis: heparin Lines/Catheters IV Catheter Type (from Nrsg): Central Line Central line still needed: Yes Urinary Cath still in place: Yes Reason Cath still needed: urinary retention Assessment/Plan Hospital Course 73 yo male who presents with obtundation acute and found to have hemorrhagic stroke/ICH with severe hypertension. Right frontoparietal craniotomy for evacuation of ICH and left frontal ventriculostomy NEURO: ICH - Management per Dr Ruby, recommendation is to monitor neurological status for the next several days - s/p Right frontoparietal craniotomy for evacuation of ICH and Left frontal ventriculostomy 12/15 - HOB > 30 - Na goal 145-150 - Keppra ppx -Repeat CT head shows mild improvement in hematoma size -Patient with minimal reflexes off sedation, still not following commands CV: hypertension - Cardene drip discontinued secondary to hypotension -Status post IV fluid bolus for hypotension, BP now stable PULM: Acute respiratory failure secondary to intracranial hemorrhage with development of multifocal pneumonia - MV per pulmonary -Broad-spectrum antibiotics RENAL CKD III - Monitor creatine Therapeutic hypernatremia HEME Acute blood loss anemia: -Monitor ID Multifocal pneumonia -Continue IV antibiotics DNR Prophylaxis: SCDs DC planning: Family conference held today, family would like to monitor neurological status for several more days prior to making any decisions about terminal extubation, family is very realistic about prognosis and do not want patient to live in a vegetative state, family leaning towards terminal ex tubation by sometime early next week if condition does not improve Result Diagram: 12/21/18 0430 12/21/18 0430 Results 24hrs Laboratory Tests Test 12/21/18 02:24 12/21/18 04:30 Blood Gas Specimen Source Blood arterial Arterial Blood Date Drawn 12/21/2018 2:38:12 AM Arterial Blood pH (Temp corrected) 7.345 L Arterial Blood pCO2 (Temp correct) 35.5 Arterial Blood pO2 (Temp corrected) 122.1 H Arterial Blood HCO3 18.9 L Arterial Blood Base Excess -6.1 L Arterial Blood Oxygen Saturation 98.3 Vipin Test N/A Arterial Blood Gas Puncture Site A-Line Arterial Blood Carboxyhemoglobin 0.3 Arterial Blood Methemoglobin 0.2 Blood Gas A-a O2 Differential 555.4 H Oxyhemoglobin Percent 97.8 Blood Gas Temperature 37.0 Blood Gas Respiration Rate 20.0 Blood Gas Actual Respiration Rate 38 Blood Gas Modality VENT - AC FiO2 100.0 Blood Gas Tidal Volume 550.0 Blood Gas Low PEEP Setting 10.0 Blood Gas Inspiratory Pressure 44.0 Blood Gas Notified Whom SUZETTE KEBEDE Blood Gas Notified Time 12/21/2018 2:49:43 AM White Blood Count 10.3 # Red Blood Count 2.87 L Hemoglobin 8.3 L Hematocrit 26.3 L Mean Corpuscular Volume 91.6 Mean Corpuscular Hemoglobin 28.9 L Mean Corpuscular Hemoglobin Concent 31.6 L Red Cell Distribution Width 15.3 H Platelet Count 196 Mean Platelet Volume 11.5 H Immature Granulocytes % 0.200 Neutrophils % Segmented Neutrophils % (Manual) 36 L Band Neutrophils % (Manual) 47 H Lymphocytes % Lymphocytes % (Manual) 2 L Monocytes % Monocytes % (Manual) 1 Eosinophils % Eosinophils % (Manual) 1 Basophils % Basophils % (Manual) 1 Metamyelocytes % (manual) 1 H Myelocytes % (Manual) 11 H Nucleated Red Blood Cells % 0.3 H Immature Granulocytes # 0.020 Neutrophils # Neutrophils # (Manual) 4.2 Band Neutrophils # 4.8 H Lymphocytes (Manual) 0.2 L Lymphocytes # Monocytes # Monocytes # (Manual) 0.1 L Eosinophils # Basophils # Basophils # (Manual) 0.1 H Metamyelocytes # 0.1 H Myelocytes # 1.1 H Nucleated Red Blood Cells # Toxic Granulation 1+ Platelet Estimate NORMAL Giant Platelets 8 H Poikilocytosis 1+ Tear Drop Cells 1+ Ovalocytes 1+ Sodium Level 144 Potassium Level 4.7 Chloride Level 116 H Carbon Dioxide Level 21 Anion Gap 7 Blood Urea Nitrogen 47 #H Creatinine 1.24 Est Glomerular Filtrat Rate mL/min Glucose Level 146 Calcium Level 8.1 L Subjective 24 Hr Interval Summary Free Text/Dictation Remains intubated, on heavy sedation Exam/Review of Systems Exam Vitals Vital Signs Date Temp Pulse Resp B/P (MAP) Pulse Ox O2 O2 Flow FiO2 Time Delivery Rate 12/21/18 89 30 100 80 11:30 12/21/18 110/56 Mechanical 06:00 (74) Ventilator 12/21/18 98.0 04:00 Intake and Output 12/20/18 12/20/18 12/21/18 1515:00 23:00 07:00 IntakeIntake Total 1455.5 ml 1559.5 ml 880.0 ml OutputOutput Total 922 ml 523 ml 401 ml BalanceBalance 533.5 ml 1036.5 ml 479.0 ml Exam Intubated, sedated No response to noxious sustimuli Pupils small, fixed No corneal elicited on sedation Lungs clear anteriory RRR Abdomen soft nt nd Ext without edema, warm Results Results 24hrs Laboratory Tests Test 12/21/18 02:24 12/21/18 04:30 Blood Gas Specimen Source Blood arterial Arterial Blood Date Drawn 12/21/2018 2:38:12 AM Arterial Blood pH (Temp corrected) 7.345 L Arterial Blood pCO2 (Temp correct) 35.5 Arterial Blood pO2 (Temp corrected) 122.1 H Arterial Blood HCO3 18.9 L Arterial Blood Base Excess -6.1 L Arterial Blood Oxygen Saturation 98.3 Vipin Test N/A Arterial Blood Gas Puncture Site A-Line Arterial Blood Carboxyhemoglobin 0.3 Arterial Blood Methemoglobin 0.2 Blood Gas A-a O2 Differential 555.4 H Oxyhemoglobin Percent 97.8 Blood Gas Temperature 37.0 Blood Gas Respiration Rate 20.0 Blood Gas Actual Respiration Rate 38 Blood Gas Modality VENT - AC FiO2 100.0 Blood Gas Tidal Volume 550.0 Blood Gas Low PEEP Setting 10.0 Blood Gas Inspiratory Pressure 44.0 Blood Gas Notified Whom SUZETTE KEBEDE Blood Gas Notified Time 12/21/2018 2:49:43 AM White Blood Count 10.3 # Red Blood Count 2.87 L Hemoglobin 8.3 L Hematocrit 26.3 L Mean Corpuscular Volume 91.6 Mean Corpuscular Hemoglobin 28.9 L Mean Corpuscular Hemoglobin Concent 31.6 L Red Cell Distribution Width 15.3 H Platelet Count 196 Mean Platelet Volume 11.5 H Immature Granulocytes % 0.200 Neutrophils % Segmented Neutrophils % (Manual) 36 L Band Neutrophils % (Manual) 47 H Lymphocytes % Lymphocytes % (Manual) 2 L Monocytes % Monocytes % (Manual) 1 Eosinophils % Eosinophils % (Manual) 1 Basophils % Basophils % (Manual) 1 Metamyelocytes % (manual) 1 H Myelocytes % (Manual) 11 H Nucleated Red Blood Cells % 0.3 H Immature Granulocytes # 0.020 Neutrophils # Neutrophils # (Manual) 4.2 Band Neutrophils # 4.8 H Lymphocytes (Manual) 0.2 L Lymphocytes # Monocytes # Monocytes # (Manual) 0.1 L Eosinophils # Basophils # Basophils # (Manual) 0.1 H Metamyelocytes # 0.1 H Myelocytes # 1.1 H Nucleated Red Blood Cells # Toxic Granulation 1+ Platelet Estimate NORMAL Giant Platelets 8 H Poikilocytosis 1+ Tear Drop Cells 1+ Ovalocytes 1+ Sodium Level 144 Potassium Level 4.7 Chloride Level 116 H Carbon Dioxide Level 21 Anion Gap 7 Blood Urea Nitrogen 47 #H Creatinine 1.24 Est Glomerular Filtrat Rate mL/min Glucose Level 146 Calcium Level 8.1 L Medications Medication Current Medications Ondansetron HCl (Zofran Inj) 4 mg Q6H PRN IV NAUSEA/VOMITING; Start 12/15/18 at 18:00 Naloxone HCl (Narcan) 0.2 mg Q2M PRN IV .RR 8 BREATHS/MIN OR LESS; Start 12/15/18 at 18:00 Neomycin/ Polymyxin/ Bacitracin (Neosporin Topical Oint) 1 applic BID TOP Last administered on 12/21/18 10:30; Admin Dose 1 APPLIC; Start 12/15/18 at 21:00 Propofol 100 ml @ 2.25 mls/hr Q12H IV Last administered on 12/21/18 07:06; Admin Dose 13.5 MLS/HR; Start 12/15/18 at 19:00 Nicardipine HCl 50 mg/Sodium Chloride 500 ml @ 0 mls/hr TITRATE IV Last admin istered on 12/20/18 23:15; Admin Dose 70 MLS/HR; Start 12/16/18 at 12:00 Hydralazine HCl (Apresoline) 10 mg Q6H PRN IV ELEVATED BLOOD PRESSURE Last administered on 12/20/18 15:04; Admin Dose 10 MG; Start 12/16/18 at 17:00 Acetaminophen (Tylenol Liquid) 650 mg Q4H PRN NGT MILD PAIN(1-3)OR ELEVATED TEMP Last administered on 12/18/18 19:32; Admin Dose 650 MG; Start 12/16/18 at 21:00 Fentanyl 100 ml @ 2.5 mls/hr TITRATE IV Last administered on 12/21/18 11:25; Admin Dose 7.5 MLS/HR; Start 12/16/18 at 22:30 Acetaminophen/ Hydrocodone Bitart ([place] (5/325)) 1 tab Q6H PRN PO MODERATE PAIN LEVEL 4-6 Last administered on 12/19/18 00:47; Admin Dose 1 TAB; Start 12/17/18 at 12:30 Hydromorphone HCl (Dilaudid) 0.4 mg Q1H PRN IV PAIN Last administered on 12/21/18at 00:47; Admin Dose 0.4 MG; Start 12/19/18 at 00:00 Aztreonam 2 gm/ Sodium Chloride 100 ml @ 100 mls/hr Q8 IVPB Last administered on 12/21/18 05:17; Admin Dose 100 MLS/HR; Start 12/19/18 at 11:00 Vancomycin HCl (Vanco Iv Per Pharmacy) VANCOMYCIN PER PHARMACY PER PROTOCOL XX ; Start 12/20/18 at 11:00 Vancomycin HCl 100 ml @ 100 mls/hr Q12H IVPB Last administered on 12/21/18 11:58; Admin Dose 100 MLS/HR; Start 12/20/18 at 23:00 Levetiracetam 750 mg/Dextrose 107.5 ml @ 430 mls/hr Q12 IVPB Last administered on 12/21/18 10:29; Admin Dose 430 MLS/HR; Start 12/20/18 at 21:00 Lansoprazole (Prevacid) 30 mg DAILY@06 GTB Last administered on 12/21/18 05:26; Admin Dose 30 MG; Start 12/21/18 at 06:00 Midazolam HCl 50 ml @ 1 mls/hr TITRATE IV Last administered on 12/21/18 11:20; Admin Dose 10 MLS/HR; Start 12/21/18 at 02:00 Miscellaneous Information (*Rx Drug Level Order Reminder*) VANCO TROUGH ON ... ONCE ONCE XX ; Start 12/21/18 at 22:00; Stop 12/21/18 at 22:01 CASSANDRA WHITE MD Dec 21, 2018 12:23
--- NOTE | 2018-12-21 14:38 | CONS ---
Assessment/Plan Assessment/Plan Hospital Course 73 M c/ reported Hx of HTN, who is admitted to the [facility] for management of acute cerebral hemorrhage...for which neurology is consulted.. s/p emergent neurosurgery on 12/15 P: Post-op management per neurosurgery Cont Keppra 750mg iv bid for now Ativan iv prn prolonged seizure Strict BP control (SBP < 160) Hold antiplatelets and anticoagulants Goals of care and other management per primary Will follow clinically Consultation Date/Type/Reason Admit Date/Time Dec 15, 2018 at 11:55 Type of Consult Neurology Reason for Consultation ICH Requesting Provider: CASSANDRA WIHTE MD Date/Time of Note DATE: 12/21/18 TIME: 14:35 24 HR Interval Summary Free Text/Dictation Continues critical care. No changes in pt condition reported. Subjective hx not possible: pt non-verbal, pt critical Exam Vital Signs Vitals Vital Signs Date Temp Pulse Resp B/P (MAP) Pulse Ox O2 O2 Flow FiO2 Time Delivery Rate 12/21/18 92 34 100 80 13:10 12/21/18 110/56 Mechanical 06:00 (74) Ventilator 12/21/18 98.0 04:00 Intake and Output 12/20/18 12/20/18 12/21/18 1515:00 23:00 07:00 IntakeIntake Total 1455.5 ml 1559.5 ml 880.0 ml OutputOutput Total 922 ml 523 ml 401 ml BalanceBalance 533.5 ml 1036.5 ml 479.0 ml Exam PE: Gen Appearance: No Apparent Distress HEENT: Intubated; L frontal EVD, R frontal intraparenchymal drain Cardiovascular: Regular rate Abdomen: Soft Extremities: Dry NE: The patient was comatose... Cranial nerve examination was limited by mental status. Pupils were equal and sluggishly reactive to light. There was no afferent pupillary defect. Funduscopic examination was limited. Face was grossly symmetric, w/ present corneal and cough reflexes. Tone was normal. Muscle bulk was normal. No fasciculations were noted. The pt did not withdraw to noxious stimuli. Coordination and gait testing was limited by mental status. Arm and leg reflexes were symmetric. Munoz's sign was absent. Plantar responses were flexor. VICK DIEHL NP Dec 21, 2018 14:38
[2018-12-22] VITALS (30 sets, daily range): BP systolic 84–123; BP diastolic 57–71; PULSE 86–104; RESP 10–44
[2018-12-22] MEDS: HYDROmorphONE 0.5 MG/0.5 ML SYG IV PRN ×2 (00:41→04:08)
[2018-12-22] MEDS ORDERED: NITROGLYCERIN (SL) 0.4 MG TAB ONE (01:39)
[2018-12-22] MEDS: MIDAZOLAM (DRIP) 50 mg/50 mL 50 ML IV SCH ×4 (04:35→22:31)
[2018-12-22] MEDS: AZTREONAM 2 GM in SOD CHLORIDE 0.9% 100 ML IVPB SCH ×3 (05:22→22:30)
[2018-12-22] MEDS: LANSOPRAZOLE 30 MG CAP GTB SCH (05:22)
[2018-12-22] MEDS: PROPOFOL 100 ML IV SCH ×3 (08:39→22:51)
[2018-12-22] MEDS: LEVETIRACETAM IV 750 MG in DEXTROSE 5% 100 ML IVPB SCH (08:39)
[2018-12-22] MEDS: NEOMYC/POLYMYX/BACIT 30 GM OINT TOP SCH ×2 (08:40→20:53)
--- NOTE | 2018-12-22 10:33 | CONS ---
Consult Date/Type/Reason Admit Date/Time Dec 15, 2018 at 11:55 Initial Consult Date Type of Consult Pulmonary Requesting Provider: CASSANDRA WHITE MD Date/Time of Note DATE: 12/22/18 TIME: 10:31 Subjective Tachypneic off sedation. Not opening eyes or following commands. Continues to have drainage from ventriculostomy Moderate secretions. Objective Vital Signs Date Temp Pulse Resp B/P (MAP) Pulse Ox O2 O2 Flow FiO2 Time Delivery Rate 12/22/18 60 08:00 12/22/18 102 34 104/58 100 Mechanical 06:00 (73) Ventilator 12/22/18 98.4 04:00 Intake and Output 12/21/18 12/21/18 12/22/18 1515:00 23:00 07:00 IntakeIntake Total 1114.5 ml 1253.5 ml 1086.5 ml OutputOutput Total 515 ml 469 ml 403 ml BalanceBalance 599.5 ml 784.5 ml 683.5 ml Exam GENERAL: Elderly [place] gentleman orally intubated with ventriculostomy drain. VITAL SIGNS: per chart NECK: Supple. No JVD or lymphadenopathy. CARDIAC EXAM: S1, S2. No added sounds or murmurs. CHEST: Diminished air entry bilaterally ABDOMEN: Soft, nontender. Mildly distended with decreased bowel sounds EXTREMITIES: No cyanosis, clubbing edema +2 NEUROLOGIC: Unable to assess Vent Setting Ventilator Support Mode: AC Fraction of Inspired Oxygen pe: 60 Positive End Expiratory Pressu: 10.0 Results/Medications Result Diagram: 12/22/18 0917 12/22/18 0917 Results 24 hrs Laboratory Tests Test 12/21/18 22:16 12/22/18 09:17 Vancomycin Level Trough 10.0 White Blood Count 9.9 Red Blood Count 2.86 L Hemoglobin 8.3 L Hematocrit 25.2 L Mean Corpuscular Volume 88.1 Mean Corpuscular Hemoglobin 29.0 Mean Corpuscular Hemoglobin Concent 32.9 Red Cell Distribution Width 15.4 H Platelet Count 278 # Mean Platelet Volume 11.0 H Immature Granulocytes % 0.800 H Neutrophils % Lymphocytes % Monocytes % Eosinophils % Basophils % Nucleated Red Blood Cells % 0.6 H Immature Granulocytes # 0.080 H Neutrophils # Lymphocytes # Monocytes # Eosinophils # Basophils # Nucleated Red Blood Cells # Sodium Level 144 Potassium Level 4.0 Chloride Level 118 H Carbon Dioxide Level 22 Anion Gap 4 L Blood Urea Nitrogen 52 H Creatinine 1.05 Est Glomerular Filtrat Rate mL/min Glucose Level 129 Calcium Level 8.2 L Phosphorus Level 1.9 L Magnesium Level 2.8 H Medications Current Medications Ondansetron HCl (Zofran Inj) 4 mg Q6H PRN IV NAUSEA/VOMITING; Start 12/15/18 at 18:00 Naloxone HCl (Narcan) 0.2 mg Q2M PRN IV .RR 8 BREATHS/MIN OR LESS; Start 12/15/18 at 18:00 Neomycin/ Polymyxin/ Bacitracin (Neosporin Topical Oint) 1 applic BID TOP Last administered on 12/22/18 08:40; Admin Dose 1 APPLIC; Start 12/15/18 at 21:00 Propofol 100 ml @ 2.25 mls/hr Q12H IV Last administered on 12/22/18 08:39; Admin Dose 13.5 MLS/HR; Start 12/15/18 at 19:00 Nicardipine HCl 50 mg/Sodium Chloride 500 ml @ 0 mls/hr TITRATE IV Last administered on 12/20/18 23:15; Admin Dose 70 MLS/HR; Start 12/16/18 at 12:00 Hydralazine HCl (Apresoline) 10 mg Q6H PRN IV ELEVATED BLOOD PRESSURE Last administered on 12/20/18 15:04; Admin Dose 10 MG; Start 12/16/18 at 17:00 Acetaminophen (Tylenol Liquid) 650 mg Q4H PRN NGT MILD PAIN(1-3)OR ELEVATED TEMP Last administered on 12/18/18 19:32; Admin Dose 650 MG; Start 12/16/18 at 21:00 Fentanyl 100 ml @ 2.5 mls/hr TITRATE IV Last administered on 12/21/18 23:22; Admin Dose 7 MLS/HR; Start 12/16/18 at 22:30 Acetaminophen/ Hydrocodone Bitart ([place] (5/325)) 1 tab Q6H PRN PO MODERATE PAIN LEVEL 4-6 Last administered on 12/19/18 00:47; Admin Dose 1 TAB; Start 12/17/18 at 12:30 Hydromorphone HCl (Dilaudid) 0.4 mg Q1H PRN IV PAIN Last administered on 3/15/19at 00:41; Admin Dose 0.4 MG; Start 12/19/18 at 00:00 Aztreonam 2 gm/ Sodium Chloride 100 ml @ 100 mls/hr Q8 IVPB Last administered on 12/22/18 05:22; Admin Dose 100 MLS/HR; Start 12/19/18 at 11:00 Vancomycin HCl (Vanco Iv Per Pharmacy) VANCOMYCIN PER PHARMACY PER PROTOCOL XX ; Start 12/20/18 at 11:00 Levetiracetam 750 mg/Dextrose 107.5 ml @ 430 mls/hr Q12 IVPB Last administered on 12/22/18 08:39; Admin Dose 430 MLS/HR; Start 12/20/18 at 21:00 Lansoprazole (Prevacid) 30 mg DAILY@06 GTB Last administered on 12/22/18 05:22; Admin Dose 30 MG; Start 12/21/18 at 06:00 Midazolam HCl 50 ml @ 1 mls/hr TITRATE IV Last administered on 12/22/18 10:29; Admin Dose 10 MLS/HR; Start 12/21/18 at 02:00 Vancomycin/Sodium Chloride 250 ml @ 125 mls/hr Q12H IVPB ; Start 12/22/18 at 11:00 Assessment/Plan Hospital Course (Demo Recall) IMPRESSION AND PLAN: 1. Intraparenchymal hemorrhage, now status post evacuation. Ventriculostomy dr styles in place. 2. Encephalopathy secondary to above. 3. Initial significant anemia concerning for GI bleed now stable 4. Renal insufficiency, likely prerenal. Improved PLAN: 1. Continue mechanical ventilation not stable for weaning 2. Pain control and sedation 3. Nasogastric tube feeding 4. Neurosurgical recommendations, will continue supportive care until this weekend if no improvement anticipate family conference on Tuesday with plan to transition to comfort care. Family aware of very poor prognosis. Critical care time 40 minutes. SAROJ HANNA MD, [facility] Dec 22, 2018 10:33
--- NOTE | 2018-12-22 12:40 | PN ---
Date/Time of Note Date/Time of Note DATE: 12/22/18 TIME: 12:36 Assessment/Plan VTE Prophylaxis Risk score (from Nsg)>0 risk: 5 SCD applied (from Ns): Yes Pharmacological prophylaxis: heparin Lines/Catheters IV Catheter Type (from Nrsg): Central Line Central line still needed: Yes Urinary Cath still in place: Yes Reason Cath still needed: urinary retention Assessment/Plan Hospital Course 73 yo male who presents with obtundation acute and found to have hemorrhagic stroke/ICH with severe hypertension. Right frontoparietal craniotomy for evacuation of ICH and left frontal ventriculostomy NEURO: ICH - Management per Dr Ruby, recommendation is to monitor neurological status for the next several days - s/p Right frontoparietal craniotomy for evacuation of ICH and Left frontal ventriculostomy 12/15 - HOB > 30 - Na goal 145-150 - Keppra ppx -Repeat CT head shows mild improvement in hematoma size -Patient with minimal reflexes off sedation, still not following commands CV: hypertension - Cardene drip discontinued secondary to hypotension -Status post IV fluid bolus for hypotension, BP now stable PULM: Acute respiratory failure secondary to intracranial hemorrhage with development of multifocal pneumonia - MV per pulmonary -Broad-spectrum antibiotics RENAL CKD III - Monitor creatine Therapeutic hypernatremia HEME Acute blood loss anemia: -Monitor ID Multifocal pneumonia -Continue IV antibiotics DNR Prophylaxis: SCDs DC planning: Family conference for Tuesday pending assessment of neuro status over coming days Result Diagram: 12/22/1891612/22/18 0917 Results 24hrs Laboratory Tests Test 12/21/18 22:16 12/22/18 09:17 Vancomycin Level Trough 10.0 White Blood Count 9.9 Red Blood Count 2.86 L Hemoglobin 8.3 L Hematocrit 25.2 L Mean Corpuscular Volume 88.1 Mean Corpuscular Hemoglobin 29.0 Mean Corpuscular Hemoglobin Concent 32.9 Red Cell Distribution Width 15.4 H Platelet Count 278 # Mean Platelet Volume 11.0 H Immature Granulocytes % 0.800 H Neutrophils % 87.1 H Segmented Neutrophils % (Manual) 50 Band Neutrophils % (Manual) 39 H Lymphocytes % 5.6 L Lymphocytes % (Manual) 9 L Monocytes % 4.4 Eosinophils % 1.9 Eosinophils % (Manual) 2 Basophils % 0.2 Nucleated Red Blood Cells % 0.6 H Immature Granulocytes # 0.080 H Neutrophils # 8.7 H Neutrophils # (Manual) 5.3 Band Neutrophils # 3.8 H Lymphocytes (Manual) 0.8 Lymphocytes # 0.9 Monocytes # Eosinophils # 0.2 Basophils # Nucleated Red Blood Cells # 0.1 H Sodium Level 144 Potassium Level 4.0 Chloride Level 118 H Carbon Dioxide Level 22 Anion Gap 4 L Blood Urea Nitrogen 52 H Creatinine 1.05 Est Glomerular Filtrat Rate mL/min Glucose Level 129 Calcium Level 8.2 L Phosphorus Level 1.9 L Magnesium Level 2.8 H Subjective 24 Hr Interval Summary Free Text/Dictation Remains on heavy sedation, becomes tachypneic and agitated when sedation is weaned Plan for family conference on Tuesday Exam/Review of Systems Exam Vitals Vital Signs Date Temp Pulse Resp B/P (MAP) Pulse Ox O2 O2 Flow FiO2 Time Delivery Rate 12/22/18 86 32 100 60 11:00 12/22/18 104/58 Mechanical 06:00 (73) Ventilator 12/22/18 98.4 04:00 Intake and Output 12/21/18 12/21/18 12/22/18 1414:59 22:59 06:59 IntakeIntake Total 1128.0 ml 1250.5 ml 1107.0 ml OutputOutput Total 514 ml 422 ml 450 ml BalanceBalance 614.0 ml 828.5 ml 657.0 ml Exam Intubated Sedated No response to stimuli while on sedation Pupils constricted lungs rhoncorous anteriorly RRR Abd soft nt Ext warm wihtout edema Results Results 24hrs Laboratory Tests Test 12/21/18 22:16 12/22/18 09:17 Vancomycin Level Trough 10.0 White Blood Count 9.9 Red Blood Count 2.86 L Hemoglobin 8.3 L Hematocrit 25.2 L Mean Corpuscular Volume 88.1 Mean Corpuscular Hemoglobin 29.0 Mean Corpuscular Hemoglobin Concent 32.9 Red Cell Distribution Width 15.4 H Platelet Count 278 # Mean Platelet Volume 11.0 H Immature Granulocytes % 0.800 H Neutrophils % 87.1 H Segmented Neutrophils % (Manual) 50 Band Neutrophils % (Manual) 39 H Lymphocytes % 5.6 L Lymphocytes % (Manual) 9 L Monocytes % 4.4 Eosinophils % 1.9 Eosinophils % (Manual) 2 Basophils % 0.2 Nucleated Red Blood Cells % 0.6 H Immature Granulocytes # 0.080 H Neutrophils # 8.7 H Neutrophils # (Manual) 5.3 Band Neutrophils # 3.8 H Lymphocytes (Manual) 0.8 Lymphocytes # 0.9 Monocytes # Eosinophils # 0.2 Basophils # Nucleated Red Blood Cells # 0.1 H Sodium Level 144 Potassium Level 4.0 Chloride Level 118 H Carbon Dioxide Level 22 Anion Gap 4 L Blood Urea Nitrogen 52 H Creatinine 1.05 Est Glomerular Filtrat Rate mL/min Glucose Level 129 Calcium Level 8.2 L Phosphorus Level 1.9 L Magnesium Level 2.8 H Medications Medication Current Medications Ondansetron HCl (Zofran Inj) 4 mg Q6H PRN IV NAUSEA/VOMITING; Start 12/15/18 at 18:00 Naloxone HCl (Narcan) 0.2 mg Q2M PRN IV .RR 8 BREATHS/MIN OR LESS; Start 12/15/18 at 18:00 Neomycin/ Polymyxin/ Bacitracin (Neosporin Topical Oint) 1 applic BID TOP Last administered on 12/22/18 08:40; Admin Dose 1 APPLIC; Start 12/15/18 at 21:00 Propofol 100 ml @ 2.25 mls/hr Q12H IV Last administered on 12/22/18 08:39; Admin Dose 13.5 MLS/HR; Start 12/15/18 at 19:00 Nicardipine HCl 50 mg/Sodium Chloride 500 ml @ 0 mls/hr TITRATE IV Last administered on 12/20/18 23:15; Admin Dose 70 MLS/HR; Start 12/16/18 at 12:00 Hydralazine HCl (Apresoline) 10 mg Q6H PRN IV ELEVATED BLOOD PRESSURE Last administered on 12/20/18 15:04; Admin Dose 10 MG; Start 12/16/18 at 17:00 Acetaminophen (Tylenol Liquid) 650 mg Q4H PRN NGT MILD PAIN(1-3)OR ELEVATED TEMP Last administered on 12/18/18 19:32; Admin Dose 650 MG; Start 12/16/18 at 21:00 Fentanyl 100 ml @ 2.5 mls/hr TITRATE IV Last administered on 12/21/18 23:22; Admin Dose 7 MLS/HR; Start 12/16/18 at 22:30 Acetaminophen/ Hydrocodone Bitart ([place] (5/325)) 1 tab Q6H PRN PO MODERATE PAIN LEVEL 4-6 Last administered on 12/19/18 00:47; Admin Dose 1 TAB; Start 12/17/18 at 12:30 Hydromorphone HCl (Dilaudid) 0.4 mg Q1H PRN IV PAIN Last administered on 12/22/18 00:41; Admin Dose 0.4 MG; Start 12/19/18 at 00:00 Aztreonam 2 gm/ Sodium Chloride 100 ml @ 100 mls/hr Q8 IVPB Last administered on 12/22/18 05:22; Admin Dose 100 MLS/HR; Start 12/19/18 at 11:00 Vancomycin HCl (Vanco Iv Per Pharmacy) VANCOMYCIN PER PHARMACY PER PROTOCOL XX ; Start 12/20/18 at 11:00 Levetiracetam 750 mg/Dextrose 107.5 ml @ 430 mls/hr Q12 IVPB Last administered on 12/22/18 08:39; Admin Dose 430 MLS/HR; Start 12/20/18 at 21:00 Lansoprazole (Prevacid) 30 mg DAILY@06 GTB Last administered on 12/22/18 05:22; Admin Dose 30 MG; Start 12/21/18 at 06:00 Midazolam HCl 50 ml @ 1 mls/hr TITRATE IV Last administered on 12/22/18 10:29; Admin Dose 10 MLS/HR; Start 12/21/18 at 02:00 Vancomycin/Sodium Chloride 250 ml @ 125 mls/hr Q12H IVPB ; Start 12/22/18 at 11:00 CASSANDRA WHITE MD Dec 22, 2018 12:39
[2018-12-22] MEDS: VANCOMYCIN 750 MG (PMX) 250 ML IVPB SCH ×2 (13:36→23:40)
[2018-12-22] MEDS: FENTAnyl (DRIP) 1000 mcg/100mL 100 ML IV SCH (14:36)
--- NOTE | 2018-12-22 14:45 | CONS ---
Assessment/Plan Assessment/Plan Hospital Course 73 M c/ reported Hx of HTN, who is admitted to the [facility] ICU for management of acute cerebral hemorrhage...for which neurology is consulted.. s/p emergent neurosurgery on 12/15 P: Post-op management per neurosurgery Cont Keppra 750mg iv bid for now Ativan iv prn prolonged seizure Strict BP control (SBP < 160) Hold antiplatelets and anticoagulants Goals of care and other management per primary Will follow clinically Consultation Date/Type/Reason Admit Date/Time Dec 15, 2018 at 11:55 Type of Consult Neurology Reason for Consultation ICH Requesting Provider: CASSANDRA WHITE MD Date/Time of Note DATE: 12/22/18 TIME: 14:45 24 HR Interval Summary Free Text/Dictation Continues critical care. EVD output 5-6cc/hr. Possible family meeting tomorrow. Subjective hx not possible: pt non-verbal, pt critical Exam Vital Signs Vitals Vital Signs Date Temp Pulse Resp B/P (MAP) Pulse Ox O2 O2 Flow FiO2 Time Delivery Rate 12/22/18 96 12:00 12/22/18 32 100 60 11:00 12/22/18 104/58 Mechanical 06:00 (73) Ventilator 12/22/18 98.4 04:00 Intake and Output 12/21/18 12/21/18 12/22/18 1515:00 23:00 07:00 IntakeIntake Total 1114.5 ml 1253.5 ml 1086.5 ml OutputOutput Total 515 ml 469 ml 403 ml BalanceBalance 599.5 ml 784.5 ml 683.5 ml Exam PE: Gen Appearance: No Apparent Distress HEENT: Intubated; L frontal EVD, R frontal intraparenchymal drain Cardiovascular: Regular rate Abdomen: Soft Extremities: Dry NE: The patient was comatose... Cranial nerve examination was limited by mental status. Pupils were equal and sluggishly reactive to light. There was no afferent pupillary defect. Funduscopic examination was limited. Face was grossly symmetric, w/ present corneal and cough reflexes. Tone was normal. Muscle bulk was normal. No fasciculations were noted. The pt did not withdraw to noxious stimuli. Coordination and gait testing was limited by mental status. Arm and leg reflexes were symmetric. Munoz's sign was absent. Plantar responses were flexor. [employer] Dec 22, 2018 14:45
[2018-12-22] MEDS: LEVETIRACETAM IV 750 MG in SOD CHLORIDE 0.9% 100 ML IV SCH (20:53)
--- NOTE | 2018-12-22 23:46 | PN ---
Date/Time of Note Date/Time of Note DATE: 12/22/18 TIME: 23:46 Copies To: Assessment/Plan Date of progress note: 12/22/2018 The patient remains in the ICU, intubated and on a ventilator. He continues to be on propofol, fentanyl and Versed drip has been added for ongoing agitation. Pupils are 2 mm bilaterally. He does not follow commands. He has a weak corneal reflex bilaterally. He does not move his upper or lower extremities to voice or pain. There is no eye opening to voice or pain. The right frontal intraparenchymal drain no longer having any more output. The left frontal external ventriculostomy drain puts out approximately 5-7 cc of yellowish tinged CSF. The latest serum sodium is 144. Assessment/plan: The patient remains critically ill in the ICU. The right frontal interparenchymal drain has been removed. The left frontal external ventriculostomy drain has now been raised to 10 cm above the foramen of Carl. The patient's sedation will be held this and from what I am told the family will have another meeting with the healthcare providers on Tuesday to decide further course of action. There is no acute neurosurgical intervention indicated. BRYN PINK MD Dec 22, 2018 23:46
[2018-12-23] VITALS (34 sets, daily range): BP systolic 96–132; BP diastolic 49–69; PULSE 87–112; RESP 9–47
[2018-12-23] MEDS: FENTAnyl (DRIP) 1000 mcg/100mL 100 ML IV SCH ×3 (00:29→23:24)
[2018-12-23] MEDS: AZTREONAM 2 GM in SOD CHLORIDE 0.9% 100 ML IVPB SCH ×3 (06:28→21:32)
[2018-12-23] MEDS: LANSOPRAZOLE 30 MG CAP GTB SCH (06:28)
[2018-12-23] MEDS: MIDAZOLAM (DRIP) 50 mg/50 mL 50 ML IV SCH ×2 (06:28→18:00)
[2018-12-23] MEDS: PROPOFOL 100 ML IV SCH ×4 (06:30→23:24)
[2018-12-23] MEDS: NEOMYC/POLYMYX/BACIT 30 GM OINT TOP SCH ×2 (08:35→21:32)
[2018-12-23] MEDS: HYDROmorphONE 0.5 MG/0.5 ML SYG IV PRN (08:35)
--- NOTE | 2018-12-23 09:13 | CONS ---
Assessment/Plan Assessment/Plan Hospital Course 73 M c/ reported Hx of HTN, who is admitted to the [facility] ICU for management of acute cerebral hemorrhage...for which neurology is consulted.. s/p emergent neurosurgery on 12/15 P: Post-op management per neurosurgery Cont Keppra 750mg iv bid for now Ativan iv prn prolonged seizure Strict BP control (SBP < 160) Hold antiplatelets and anticoagulants Goals of care and other management per primary Will follow clinically Consultation Date/Type/Reason Admit Date/Time Dec 15, 2018 at 11:55 Type of Consult Neurology Reason for Consultation ICH Requesting Provider: CASSANDRA WHITE MD Date/Time of Note DATE: 12/23/18 TIME: 09:13 24 HR Interval Summary Free Text/Dictation Continues critical care. Subjective hx not possible: pt non-verbal, pt critical Exam Vital Signs Vitals Vital Signs Date Temp Pulse Resp B/P (MAP) Pulse Ox O2 O2 Flow FiO2 Time Delivery Rate 12/23/18 98.9 89 38 132/56 96 Mechanical 08:00 (81) Ventilator 12/23/18 50 08:00 Intake and Output 12/22/18 12/22/18 12/23/18 1515:00 23:00 07:00 IntakeIntake Total 1092.5 ml 743.0 ml 1163.5 ml OutputOutput Total 672 ml 847 ml 617 ml BalanceBalance 420.5 ml -104.0 ml 546.5 ml Exam PE: Gen Appearance: No Apparent Distress HEENT: Intubated; L frontal EVD, R frontal intraparenchymal drain Cardiovascular: Regular rate Abdomen: Soft Extremities: Dry NE: The patient was comatose... Cranial nerve examination was limited by mental status. Pupils were equal and sluggishly reactive to light. There was no afferent pupillary defect. Funduscopic examination was limited. Face was grossly symmetric, w/ present corneal and cough reflexes. Tone was normal. Muscle bulk was normal. No fasciculations were noted. The pt did not withdraw to noxious stimuli. Coordination and gait testing was limited by mental status. Arm and leg reflexes were symmetric. Munoz's sign was absent. Plantar responses were flexor. VICK DIEHL NP Dec 23, 2018 09:13
--- NOTE | 2018-12-23 09:39 | PN ---
Date/Time of Note Date/Time of Note DATE: 12/23/18 TIME: 09:36 Assessment/Plan VTE Prophylaxis Risk score (from Ns)>0 risk: 8 SCD applied (from Ns): Yes Pharmacological prophylaxis: NA/contraindicated Pharm contraindication: bleeding Lines/Catheters IV Catheter Type (from Nrsg): Central Line Central line still needed: Yes Urinary Cath still in place: Yes Reason Cath still needed: other (indicate) (intubated) Assessment/Plan Assessment/Plan 73 yo male who presents with obtundation acute and found to have hemorrhagic stroke/ICH with severe hypertension. Right frontoparietal craniotomy for evacuation of ICH and left frontal ventriculostomy NEURO: ICH - Management per Dr Ruby, recommendation is to monitor neurological status for the next several days - s/p Right frontoparietal craniotomy for evacuation of ICH and Left frontal ventriculostomy 12/15 - HOB > 30 - Na goal 145-150 - Keppra ppx -Repeat CT head shows mild improvement in hematoma size -Patient with minimal reflexes off sedation, still not following commands - Would like to take off sedation today but patient tachypneic to 40s. CV: hypertension - Cardene drip discontinued secondary to hypotension - Currently normotensive. PULM: Acute respiratory failure secondary to intracranial hemorrhage with development of multifocal pneumonia - MV per pulmonary -Broad-spectrum antibiotics RENAL CKD III - Monitor creatine Therapeutic hypernatremia HEME Acute blood loss anemia: -Monitor ID Multifocal pneumonia -Continue IV antibiotics DNR Prophylaxis: SCDs DC planning: Family conference for Tuesday pending assessment of neuro status over coming days Result Diagram: 12/23/18 0500 12/23/18 0430 Subjective 24 Hr Interval Summary Free Text/Dictation Right kalpesh drain removed yesterday. Patient tachypneic to 40s on sedation. Exam/Review of Systems Exam Vitals Vital Signs Date Temp Pulse Resp B/P (MAP) Pulse Ox O2 O2 Flow FiO2 Time Delivery Rate 12/23/18 98.9 89 38 132/56 96 Mechanical 08:00 (81) Ventilator 12/23/18 50 08:00 Intake and Output 12/22/18 12/22/18 12/23/18 1515:00 23:00 07:00 IntakeIntake Total 1092.5 ml 743.0 ml 1163.5 ml OutputOutput Total 672 ml 847 ml 617 ml BalanceBalance 420.5 ml -104.0 ml 546.5 ml Exam Gen: Well built man intubated, sedated, on cooling machine. Head: Sagittal incision stapled shut. ventriculostomy drain with yellowish fl uid. HEENT: Moist mucous membranes Card: Regular rate and rhythm, no murmurs Pulm: Tachypneic, mechanical breath sounds bilaterally. Abd: Soft, nondistended. Ext: warm, no edema. Results Results 24hrs Laboratory Tests Test 12/23/18 04:30 12/23/18 05:00 Sodium Level 146 H Potassium Level 3.9 Chloride Level 119 H Carbon Dioxide Level 20 L Anion Gap 7 Blood Urea Nitrogen 46 H Creatinine 1.02 Est Glomerular Filtrat Rate mL/min Glucose Level 134 Calcium Level 8.3 L White Blood Count 8.7 Red Blood Count 3.01 L Hemoglobin 8.6 L Hematocrit 26.3 L Mean Corpuscular Volume 87.4 Mean Corpuscular Hemoglobin 28.6 L Mean Corpuscular Hemoglobin Concent 32.7 Red Cell Distribution Width 15.7 H Platelet Count 329 Mean Platelet Volume 10.9 H Immature Granulocytes % 4.600 H Neutrophils % Segmented Neutrophils % (Manual) 61 Band Neutrophils % (Manual) 18 H Lymphocytes % Lymphocytes % (Manual) 8 L Reactive Lymphocytes % (Manual) 1 H Monocytes % Monocytes % (Manual) 3 Eosinophils % Eosinophils % (Manual) 3 Basophils % Myelocytes % (Manual) 5 H Promyelocytes % (Manual) 1 H Nucleated Red Blood Cells % 1 H Immature Granulocytes # 0.400 H Neutrophils # Neutrophils # (Manual) 5.4 Band Neutrophils # 1.5 H Lymphocytes (Manual) 0.6 L Lymphocytes # Reactive Lymphocytes # 0.0 Monocytes # Monocytes # (Manual) 0.2 L Eosinophils # Basophils # Myelocytes # 0.4 H Promyelocytes # 0.0 Nucleated Red Blood Cells # Platelet Estimate NORMAL Giant Platelets 2 H Polychromasia 1+ Poikilocytosis 1+ Anisocytosis 1+ Target Cells 1+ Tear Drop Cells 1+ Medications Medication Current Medications Ondansetron HCl (Zofran Inj) 4 mg Q6H PRN IV NAUSEA/VOMITING; Start 12/15/18 at 18:00 Naloxone HCl (Narcan) 0.2 mg Q2M PRN IV .RR 8 BREATHS/MIN OR LESS; Start 12/15/18 at 18:00 Neomycin/ Polymyxin/ Bacitracin (Neosporin Topical Oint) 1 applic BID TOP Last administered on 12/23/18 08:35; Admin Dose 1 APPLIC; Start 12/15/18 at 21:00 Propofol 100 ml @ 2.25 mls/hr Q12H IV Last administered on 12/23/18 06:30; Admin Dose 13.5 MLS/HR; Start 12/15/18 at 19:00 Nicardipine HCl 50 mg/Sodium Chloride 500 ml @ 0 mls/hr TITRATE IV Last administered on 12/20/18 23:15; Admin Dose 70 MLS/HR; Start 12/16/18 at 12:00 Hydralazine HCl (Apresoline) 10 mg Q6H PRN IV ELEVATED BLOOD PRESSURE Last administered on 12/20/18 15:04; Admin Dose 10 MG; Start 12/16/18 at 17:00 Acetaminophen (Tylenol Liquid) 650 mg Q4H PRN NGT MILD PAIN(1-3)OR ELEVATED TEMP Last administered on 12/18/18 19:32; Admin Dose 650 MG; Start 12/16/18 at 21:00 Fentanyl 100 ml @ 2.5 mls/hr TITRATE IV Last administered on 12/23/18 00:29; Admin Dose 2.5 MLS/HR; Start 12/16/18 at 22:30 Acetaminophen/ Hydrocodone Bitart ([place] (5/325)) 1 tab Q6H PRN PO MODERATE PAIN LEVEL 4-6 Last administered on 12/19/18 00:47; Admin Dose 1 TAB; Start 12/17/18 at 12:30 Hydromorphone HCl (Dilaudid) 0.4 mg Q1H PRN IV PAIN Last administered on 12/23/18 08:35; Admin Dose 0.4 MG; Start 12/19/18 at 00:00 Aztreonam 2 gm/ Sodium Chloride 100 ml @ 100 mls/hr Q8 IVPB Last administered on 12/23/18 06:28; Admin Dose 100 MLS/HR; Start 12/19/18 at 11:00 Vancomycin HCl (Vanco Iv Per Pharmacy) VANCOMYCIN PER PHARMACY PER PROTOCOL XX ; Start 12/20/18 at 11:00 Lansoprazole (Prevacid) 30 mg DAILY@06 GTB Last administered on 3/16/19at 06:28; Admin Dose 30 MG; Start 12/21/18 at 06:00 Midazolam HCl 50 ml @ 1 mls/hr TITRATE IV Last administered on 12/23/18at 06:28; Admin Dose 5 MLS/HR; Start 12/21/18 at 02:00 Vancomycin/Sodium Chloride 250 ml @ 125 mls/hr Q12H IVPB Last administered on 12/22/18at 23:40; Admin Dose 125 MLS/HR; Start 12/22/18 at 11:00 Levetiracetam 750 mg/Sodium Chloride 107.5 ml @ 430 mls/hr Q12 IV Last administered on 12/22/18at 20:53; Admin Dose 430 MLS/HR; Start 12/22/18 at 21:00 ROME SPENCER MD Dec 23, 2018 09:39
[2018-12-23] MEDS: LEVETIRACETAM IV 750 MG in SOD CHLORIDE 0.9% 100 ML IV SCH ×2 (10:17→21:32)
--- NOTE | 2018-12-23 11:18 | CONS ---
Consult Date/Type/Reason Admit Date/Time Dec 15, 2018 at 11:55 Initial Consult Date Type of Consultation: Pulm/CCM Requesting Provider: CASSANDRA WHITE MD Date/Time of Note DATE: 12/23/18 TIME: 11:15 Subjective Sedated on the mechanical ventilation. Objective Vitals Vital Signs Date Temp Pulse Resp B/P (MAP) Pulse Ox O2 O2 Flow FiO2 Time Delivery Rate 12/23/18 97 38 112/69 94 Mechanical 10:00 (83) Ventilator 12/23/18 98.9 08:00 12/23/18 50 08:00 Intake and Output 12/22/18 12/22/18 12/23/18 1515:00 23:00 07:00 IntakeIntake Total 1092.5 ml 743.0 ml 1163.5 ml OutputOutput Total 672 ml 847 ml 617 ml BalanceBalance 420.5 ml -104.0 ml 546.5 ml Exam GENERAL: Elderly [place] gentleman orally intubated with ventriculostomy drain. VITAL SIGNS: per chart NECK: Supple. No JVD or lymphadenopathy. CARDIAC EXAM: S1, S2. No added sounds or murmurs. CHEST: Diminished air entry bilaterally ABDOMEN: Soft, nontender. Mildly distended with decreased bowel sounds EXTREMITIES: No cyanosis, clubbing edema +2 NEUROLOGIC: Sedated. Unable to asses Results/Medications Result Diagram: 12/23/18 0500 12/23/18 0430 Results 24 hrs Laboratory Tests Test 12/23/18 04:30 12/23/18 05:00 Sodium Level 146 H Potassium Level 3.9 Chloride Level 119 H Carbon Dioxide Level 20 L Anion Gap 7 Blood Urea Nitrogen 46 H Creatinine 1.02 Est Glomerular Filtrat Rate mL/min Glucose Level 134 Calcium Level 8.3 L White Blood Count 8.7 Red Blood Count 3.01 L Hemoglobin 8.6 L Hematocrit 26.3 L Mean Corpuscular Volume 87.4 Mean Corpuscular Hemoglobin 28.6 L Mean Corpuscular Hemoglobin Concent 32.7 Red Cell Distribution Width 15.7 H Platelet Count 329 Mean Platelet Volume 10.9 H Immature Granulocytes % 4.600 H Neutrophils % Segmented Neutrophils % (Manual) 61 Band Neutrophils % (Manual) 18 H Lymphocytes % Lymphocytes % (Manual) 8 L Reactive Lymphocytes % (Manual) 1 H Monocytes % Monocytes % (Manual) 3 Eosinophils % Eosinophils % (Manual) 3 Basophils % Myelocytes % (Manual) 5 H Promyelocytes % (Manual) 1 H Nucleated Red Blood Cells % 1 H Immature Granulocytes # 0.400 H Neutrophils # Neutrophils # (Manual) 5.4 Band Neutrophils # 1.5 H Lymphocytes (Manual) 0.6 L Lymphocytes # Reactive Lymphocytes # 0.0 Monocytes # Monocytes # (Manual) 0.2 L Eosinophils # Basophils # Myelocytes # 0.4 H Promyelocytes # 0.0 Nucleated Red Blood Cells # Platelet Estimate NORMAL Giant Platelets 2 H Polychromasia 1+ Poikilocytosis 1+ Anisocytosis 1+ Target Cells 1+ Tear Drop Cells 1+ Home Meds Reported Medications Cyanocobalamin* (Vitamin B12*) 500 Mcg Tab, 500 MCG PO DAILY, TAB 12/15/18 Vitamin E Mixed* (Vitamin E*) 400 Unit Capsule, 400 UNIT PO DAILY, CAP 12/15/18 Ergocalciferol (Vitamin D2) (VITAMIN D2) 50,000 Unit Capsule, 39754 UNIT PO Q7D, CAP 12/15/18 Ranitidine Hcl* (Zantac*) 150 Mg Tablet, 150 MG PO HS, #30 TAB 12/15/18 Levocetirizine Dihydrochloride (Xyzal) 5 Mg Tablet, 5 MG PO QPM, TAB 12/15/18 Zolpidem Tartrate* (Zolpidem Tartrate*) 5 Mg Tablet, 5 MG PO QHS PRN for INSOMNIA, #30 TAB 12/15/18 Esomeprazole Mag Trihydrate (Nexium) 40 Mg Capsule.dr, 40 MG PO DAILY, #30 CAP 12/15/18 Memantine* (Namenda* XR) 7 Mg Cap.spr.24, 7 MG PO DAILY, #30 TAB 12/15/18 Losartan-Hydrochlorothiazide (Losartan-HCTZ) 50-12.5 Mg Tab, 1 TAB PO DAILY, TAB 12/15/18 Sitagliptin* (Januvia*) 50 Mg Tablet, 50 MG PO DAILY, #30 TAB 12/15/18 Hydralazine Hcl* (Hydralazine Hcl*) 25 Mg Tab, 25 MG PO Q6H PRN for SBP>150, #60 TAB 12/15/18 Glimepiride* (Glimepiride*) 1 Mg Tablet, 1 MG PO WITH BREAKFAST, TAB 12/15/18 Fenofibrate, Micronized (Fenofibrate) 134 Mg Capsule, 134 MG PO DAILY, CAP 12/15/18 Prasugrel Hydrochloride* (Effient*) 5 Mg Tablet, 5 MG PO DAILY, TAB 12/15/18 Docusate Sodium* (Dok*) 250 Mg Capsule, 250 MG PO TID, #60 CAP 12/15/18 Diltiazem Hcl* (Cardizem CD*) 240 Mg Cap.sr.24h, 240 MG PO DAILY, #30 CAP 12/15/18 Cyanocobalamin (Vitamin B-12) (Cyanocobalamin Injection) 1,000 Mcg/1 Ml Vial, 1000 MCG IJ Q WEEK, VIAL 12/15/18 Rosuvastatin Calcium* (Crestor*) 10 Mg Tablet, 10 MG PO QHS, #30 TAB 12/15/18 Clonazepam* (Clonazepam*) 1 Mg Tablet, 1 MG PO BID PRN for ANXIETY, TAB 12/15/18 Tadalafil (Cialis) 5 Mg Tablet, 5 MG PO DAILY, TAB 12/15/18 Celecoxib* (Celebrex*) 200 Mg Capsule, 200 MG PO BID, CAP 12/15/18 Medications Current Medications Ondansetron HCl (Zofran Inj) 4 mg Q6H PRN IV NAUSEA/VOMITING; Start 12/15/18 at 18:00 Naloxone HCl (Narcan) 0.2 mg Q2M PRN IV .RR 8 BREATHS/MIN OR LESS; Start 12/15/18 at 18:00 Neomycin/ Polymyxin/ Bacitracin (Neosporin Topical Oint) 1 applic BID TOP Last administered on 12/23/18at 08:35; Admin Dose 1 APPLIC; Start 12/15/18 at 21:00 Propofol 100 ml @ 2.25 mls/hr Q12H IV Last administered on 12/23/18at 06:30; Admin Dose 13.5 MLS/HR; Start 12/15/18 at 19:00 Nicardipine HCl 50 mg/Sodium Chloride 500 ml @ 0 mls/hr TITRATE IV Last administered on 12/20/18at 23:15; Admin Dose 70 MLS/HR; Start 12/16/18 at 12:00 Hydralazine HCl (Apresoline) 10 mg Q6H PRN IV ELEVATED BLOOD PRESSURE Last administered on 12/20/18 15:04; Admin Dose 10 MG; Start 12/16/18 at 17:00 Acetaminophen (Tylenol Liquid) 650 mg Q4H PRN NGT MILD PAIN(1-3)OR ELEVATED TEMP Last administered on 12/18/18 19:32; Admin Dose 650 MG; Start 12/16/18 at 21:00 Fentanyl 100 ml @ 2.5 mls/hr TITRATE IV Last administered on 12/23/18 00:29; Admin Dose 2.5 MLS/HR; Start 12/16/18 at 22:30 Acetaminophen/ Hydrocodone Bitart ([place] (5/325)) 1 tab Q6H PRN PO MODERATE PAIN LEVEL 4-6 Last administered on 12/19/18 00:47; Admin Dose 1 TAB; Start 12/17/18 at 12:30 Hydromorphone HCl (Dilaudid) 0.4 mg Q1H PRN IV PAIN Last administered on 12/23/18 08:35; Admin Dose 0.4 MG; Start 12/19/18 at 00:00 Aztreonam 2 gm/ Sodium Chloride 100 ml @ 100 mls/hr Q8 IVPB Last administered on 12/23/18 06:28; Admin Dose 100 MLS/HR; Start 12/19/18 at 11:00 Vancomycin HCl (Vanco Iv Per Pharmacy) VANCOMYCIN PER PHARMACY PER PROTOCOL XX ; Start 12/20/18 at 11:00 Lansoprazole (Prevacid) 30 mg DAILY@06 GTB Last administered on 12/23/18 06:28; Admin Dose 30 MG; Start 12/21/18 at 06:00 Midazolam HCl 50 ml @ 1 mls/hr TITRATE IV Last administered on 12/23/18 06:28; Admin Dose 5 MLS/HR; Start 12/21/18 at 02:00 Vancomycin/Sodium Chloride 250 ml @ 125 mls/hr Q12H IVPB Last administered on 12/22/18 23:40; Admin Dose 125 MLS/HR; Start 12/22/18 at 11:00 Levetiracetam 750 mg/Sodium Chloride 107.5 ml @ 430 mls/hr Q12 IV Last administered on 12/23/18 10:17; Admin Dose 430 MLS/HR; Start 12/22/18 at 21:00 Assessment/Plan Assessment/Plan (Daily) IMP: 1. Intraparenchymal hemorrhage, now status post evacuation. Ventriculostomy d rain in place. 2. Encephalopathy secondary to above. 3. Resp Failure//Vent dependence 2/2 #1 & 2 4. Renal insufficiency, likely prerenal. Improved 5. Pneumonia--likely aspiration 6. Anemia RECS: 1. D/C versed gtt 2. Vent--> lower Vt 450 and PEEP 5 cm H20 3. Follow neuro examination 4. Increase free H20 5. Vent support to continue 6. Family meeting on Tuesday Critical care time 40 minutes. JACQUES ANDREA MD Dec 23, 2018 11:18
[2018-12-23] MEDS: VANCOMYCIN 750 MG (PMX) 250 ML IVPB SCH ×2 (12:15→23:15)
[2018-12-24] VITALS (51 sets, daily range): BP systolic 95–138; BP diastolic 50–71; PULSE 74–118; RESP 23–44
[2018-12-24] MEDS: MIDAZOLAM (DRIP) 50 mg/50 mL 50 ML IV SCH ×4 (03:10→22:11)
[2018-12-24] MEDS: AZTREONAM 2 GM in SOD CHLORIDE 0.9% 100 ML IVPB SCH ×3 (05:07→22:10)
[2018-12-24] MEDS: LANSOPRAZOLE 30 MG CAP GTB SCH (05:07)
[2018-12-24] MEDS: PROPOFOL 100 ML IV SCH ×4 (05:07→19:34)
[2018-12-24] MEDS: LEVETIRACETAM IV 750 MG in SOD CHLORIDE 0.9% 100 ML IV SCH ×2 (09:27→21:05)
[2018-12-24] MEDS: NEOMYC/POLYMYX/BACIT 30 GM OINT TOP SCH ×2 (09:28→21:07)
[2018-12-24] MEDS: FENTAnyl (DRIP) 1000 mcg/100mL 100 ML IV SCH ×2 (10:11→21:21)
[2018-12-24] MEDS: VANCOMYCIN 750 MG (PMX) 250 ML IVPB SCH ×2 (11:15→23:23)
--- NOTE | 2018-12-24 11:29 | CONS ---
Consult Date/Type/Reason Admit Date/Time Dec 15, 2018 at 11:55 Initial Consult Date Type of Consultation: Pulm/CCM Requesting Provider: CASSANDRA WHITE MD Date/Time of Note DATE: 12/24/18 TIME: 11:26 Subjective Sedated on versed, fentanyl and propofol gtt. Objective Vitals Vital Signs Date Temp Pulse Resp B/P (MAP) Pulse Ox O2 O2 Flow FiO2 Time Delivery Rate 12/24/18 76 26 109/68 98 10:30 (82) 12/24/18 Mechanical 10:00 Ventilator 12/24/18 55 09:00 12/24/18 98.5 08:00 Intake and Output 12/23/18 12/23/18 12/24/18 1515:00 23:00 07:00 IntakeIntake Total 917.50 ml 1138.75 ml 1167.5 ml OutputOutput Total 659 ml 364 ml 414 ml BalanceBalance 258.50 ml 774.75 ml 753.5 ml Exam GENERAL: Elderly [place] gentleman orally intubated with ventriculostomy drain. VITAL SIGNS: per chart NECK: Supple. No JVD or lymphadenopathy. CARDIAC EXAM: S1, S2. No added sounds or murmurs. CHEST: Diminished air entry bilaterally ABDOMEN: Soft, nontender. Mildly distended with decreased bowel sounds EXTREMITIES: No cyanosis, clubbing edema +2 NEUROLOGIC: Sedated. Unable to asses Results/Medications Result Diagram: 12/24/18 0500 12/24/18 0500 Results 24 hrs Laboratory Tests Test 12/24/18 05:00 12/24/18 10:30 White Blood Count 10.5 # Red Blood Count 3.03 L Hemoglobin 8.7 L Hematocrit 28.4 L Mean Corpuscular Volume 93.7 Mean Corpuscular Hemoglobin 28.7 L Mean Corpuscular Hemoglobin Concent 30.6 L Red Cell Distribution Width 16.7 H Platelet Count 356 Mean Platelet Volume 10.9 H Immature Granulocytes % 8.400 H Neutrophils % Segmented Neutrophils % (Manual) 53 Band Neutrophils % (Manual) 25 H Lymphocytes % Lymphocytes % (Manual) 9 L Monocytes % Monocytes % (Manual) 2 Eosinophils % Basophils % Metamyelocytes % (manual) 2 H Myelocytes % (Manual) 6 H Promyelocytes % (Manual) 1 H Plasma Cells % (manual) 2 Nucleated Red Blood Cells % 2 H Immature Granulocytes # 0.890 H Neutrophils # Neutrophils # (Manual) 5.8 Band Neutrophils # 2.6 H Lymphocytes (Manual) 0.9 Lymphocytes # Monocytes # Monocytes # (Manual) 0.2 L Eosinophils # Basophils # Metamyelocytes # 0.2 H Myelocytes # 0.6 H Promyelocytes # 0.1 H Plasma Cells # (manual) 0.2 H Nucleated Red Blood Cells # Platelet Estimate NORMAL Giant Platelets 1 H Polychromasia 1+ Poikilocytosis 2+ Anisocytosis 1+ Tear Drop Cells 1+ Blood Gas Specimen Source Blood arterial Blood arterial Arterial Blood Date Drawn 12/24/2018 4:35:15 AM 12/24/2018 11:18:27 AM Arterial Blood pH (Temp corrected) 7.183 *L 7.331 L Arterial Blood pCO2 (Temp correct) 59.2 H 43.2 Arterial Blood pO2 (Temp corrected) 81.7 81.0 Arterial Blood HCO3 21.8 L 22.3 Arterial Blood Base Excess -7.1 L -3.4 L Arterial Blood Oxygen Saturation 95.5 96.0 Vipin Test N/A N/A Arterial Blood Gas Puncture Site A-Line PUL ART LINE Arterial Blood Carboxyhemoglobin 0.3 0.3 Arterial Blood Methemoglobin 0.4 0.3 Blood Gas A-a O2 Differential 426.5 H 263.1 H Oxyhemoglobin Percent 94.8 95.4 Blood Gas Temperature 37.0 37.0 Blood Gas Respiration Rate 20.0 20.0 Blood Gas Actual Respiration Rate 28 27 Blood Gas Modality VENT - AC VENT - AC FiO2 80.0 55.0 Blood Gas Tidal Volume 450.0 550.0 Blood Gas Low PEEP Setting 8.0 8.0 Blood Gas Critical Value Read Back Kalpesh DAVIS RN Blood Gas Notified Whom MR FRANCOIS Blood Gas Notified Time 12/24/2018 4:55:13 AM 12/24/2018 11:22:34 AM Sodium Level 143 Potassium Level 4.9 Chloride Level 115 H Carbon Dioxide Level 23 Anion Gap 5 Blood Urea Nitrogen 58 H Creatinine 1.22 Est Glomerular Filtrat Rate mL/min Glucose Level 129 Calcium Level 8.3 L Home Meds Reported Medications Cyanocobalamin* (Vitamin B12*) 500 Mcg Tab, 500 MCG PO DAILY, TAB 12/15/18 Vitamin E Mixed* (Vitamin E*) 400 Unit Capsule, 400 UNIT PO DAILY, CAP 12/15/18 Ergocalciferol (Vitamin D2) (VITAMIN D2) 50,000 Unit Capsule, 64282 UNIT PO Q7D, CAP 12/15/18 Ranitidine Hcl* (Zantac*) 150 Mg Tablet, 150 MG PO HS, #30 TAB 12/15/18 Levocetirizine Dihydrochloride (Xyzal) 5 Mg Tablet, 5 MG PO QPM, TAB 12/15/18 Zolpidem Tartrate* (Zolpidem Tartrate*) 5 Mg Tablet, 5 MG PO QHS PRN for INSOMNIA, #30 TAB 12/15/18 Esomeprazole Mag Trihydrate (Nexium) 40 Mg Capsule.dr, 40 MG PO DAILY, #30 CAP 12/15/18 Memantine* (Namenda* XR) 7 Mg Cap.spr.24, 7 MG PO DAILY, #30 TAB 12/15/18 Losartan-Hydrochlorothiazide (Losartan-HCTZ) 50-12.5 Mg Tab, 1 TAB PO DAILY, TAB 12/15/18 Sitagliptin* (Januvia*) 50 Mg Tablet, 50 MG PO DAILY, #30 TAB 12/15/18 Hydralazine Hcl* (Hydralazine Hcl*) 25 Mg Tab, 25 MG PO Q6H PRN for SBP>150, #60 TAB 12/15/18 Glimepiride* (Glimepiride*) 1 Mg Tablet, 1 MG PO WITH BREAKFAST, TAB 12/15/18 Fenofibrate, Micronized (Fenofibrate) 134 Mg Capsule, 134 MG PO DAILY, CAP 12/15/18 Prasugrel Hydrochloride* (Effient*) 5 Mg Tablet, 5 MG PO DAILY, TAB 12/15/18 Docusate Sodium* (Dok*) 250 Mg Capsule, 250 MG PO TID, #60 CAP 12/15/18 Diltiazem Hcl* (Cardizem CD*) 240 Mg Cap.sr.24h, 240 MG PO DAILY, #30 CAP 12/15/18 Cyanocobalamin (Vitamin B-12) (Cyanocobalamin Injection) 1,000 Mcg/1 Ml Vial, 1000 MCG IJ Q WEEK, VIAL 12/15/18 Rosuvastatin Calcium* (Crestor*) 10 Mg Tablet, 10 MG PO QHS, #30 TAB 12/15/18 Clonazepam* (Clonazepam*) 1 Mg Tablet, 1 MG PO BID PRN for ANXIETY, TAB 12/15/18 Tadalafil (Cialis) 5 Mg Tablet, 5 MG PO DAILY, TAB 12/15/18 Celecoxib* (Celebrex*) 200 Mg Capsule, 200 MG PO BID, CAP 12/15/18 Medications Current Medications Ondansetron HCl (Zofran Inj) 4 mg Q6H PRN IV NAUSEA/VOMITING; Start 12/15/18 at 18:00 Naloxone HCl (Narcan) 0.2 mg Q2M PRN IV .RR 8 BREATHS/MIN OR LESS; Start 12/15/18 at 18:00 Neomycin/ Polymyxin/ Bacitracin (Neosporin Topical Oint) 1 applic BID TOP Last administered on 12/24/18at 09:28; Admin Dose 1 APPLIC; Start 12/15/18 at 21:00 Propofol 100 ml @ 2.25 mls/hr Q12H IV Last administered on 12/24/18at 10:30; Admin Dose 22.5 MLS/HR; Start 12/15/18 at 19:00 Nicardipine HCl 50 mg/Sodium Chloride 500 ml @ 0 mls/hr TITRATE IV Last administered on 12/20/18at 23:15; Admin Dose 70 MLS/HR; Start 12/16/18 at 12:00 Hydralazine HCl (Apresoline) 10 mg Q6H PRN IV ELEVATED BLOOD PRESSURE Last administered on 12/20/18at 15:04; Admin Dose 10 MG; Start 12/16/18 at 17:00 Acetaminophen (Tylenol Liquid) 650 mg Q4H PRN NGT MILD PAIN(1-3)OR ELEVATED TEMP Last administered on 12/18/18at 19:32; Admin Dose 650 MG; Start 12/16/18 at 21:00 Fentanyl 100 ml @ 2.5 mls/hr TITRATE IV Last administered on 12/24/18at 10:11; Admin Dose 10 MLS/HR; Start 12/16/18 at 22:30 Acetaminophen/ Hydrocodone Bitart ([place] (5/325)) 1 tab Q6H PRN PO MODERATE PAIN LEVEL 4-6 Last administered on 12/19/18at 00:47; Admin Dose 1 TAB; Start 12/17/18 at 12:30 Hydromorphone HCl (Dilaudid) 0.4 mg Q1H PRN IV PAIN Last administered on 12/23/18at 08:35; Admin Dose 0.4 MG; Start 12/19/18 at 00:00 Aztreonam 2 gm/ Sodium Chloride 100 ml @ 100 mls/hr Q8 IVPB Last administered on 12/24/18at 05:07; Admin Dose 100 MLS/HR; Start 12/19/18 at 11:00 Vancomycin HCl (Vanco Iv Per Pharmacy) VANCOMYCIN PER PHARMACY PER PROTOCOL XX ; Start 12/20/18 at 11:00 Lansoprazole (Prevacid) 30 mg DAILY@06 GTB Last administered on 12/24/18at 05:07; Admin Dose 30 MG; Start 12/21/18 at 06:00 Midazolam HCl 50 ml @ 1 mls/hr TITRATE IV Last administered on 12/24/18at 09:29; Admin Dose 10 MLS/HR; Start 12/21/18 at 02:00 Vancomycin/Sodium Chloride 250 ml @ 125 mls/hr Q12H IVPB Last administered on 12/24/18at 11:15; Admin Dose 125 MLS/HR; Start 12/22/18 at 11:00 Levetiracetam 750 mg/Sodium Chloride 107.5 ml @ 430 mls/hr Q12 IV Last administered on 12/24/18at 09:27; Admin Dose 430 MLS/HR; Start 12/22/18 at 21:00 Miscellaneous Information (*Rx Drug Level Order Reminder*) VANCO TR ON 12/24 @ 2,200 ONCE ONCE XX ; Start 12/24/18 at 22:00; Stop 12/24/18 at 22:01 Assessment/Plan Assessment/Plan (Daily) IMP: 1. Intraparenchymal hemorrhage, now status post evacuation. Ventriculostomy drain in place. 2. Encephalopathy secondary to above. 3. Resp Failure//Vent dependence 2/2 #1 & 2 4. ALI/ARDS--with poor compliance on the vent (Pplat of 38 cm H20) 5. Renal insufficiency, likely prerenal. Improved 6. Anemia RECS: 1. D/C versed gtt 2. Vent--> change to P-AC delta p 25 cm H20; PEEP 8; FiO2 .55; rate 30 3. Follow neuro examination closely 4. TF/ free H20 5. Family meeting on Tuesday Critical care time 40 minutes. JACQUES ANDREA MD Dec 24, 2018 11:29
--- NOTE | 2018-12-24 13:41 | PN ---
Date/Time of Note Date/Time of Note DATE: 12/24/18 TIME: 13:38 Assessment/Plan VTE Prophylaxis Risk score (from Nsg)>0 risk: 20 SCD applied (from Ns): Yes Pharmacological prophylaxis: NA/contraindicated Pharm contraindication: bleeding Lines/Catheters IV Catheter Type (from Nrsg): Central Line Central line still needed: Yes Urinary Cath still in place: Yes Reason Cath still needed: other (indicate) (intubated) Assessment/Plan Assessment/Plan 73 yo male who presents with obtundation acute and found to have hemorrhagic stroke/ICH with severe hypertension. Right frontoparietal craniotomy for evacuation of ICH and left frontal ventriculostomy NEURO: ICH - Management per Dr Ruby, recommendation is to monitor neurological status for the next several days - s/p Right frontoparietal craniotomy for evacuation of ICH and Left frontal ventriculostomy 12/15 - HOB > 30 - Na goal 145-150 - Keppra ppx -Repeat CT head shows mild improvement in hematoma size -Patient with minimal reflexes off sedation, still not following commands - Would like to take off sedation today but patient tachypneic and acidotic CV: hypertension - Cardene drip discontinued secondary to hypotension - Currently normotensive. PULM: Acute respiratory failure secondary to intracranial hemorrhage with development of multifocal pneumonia - MV per pulmonary -Broad-spectrum antibiotics RENAL CKD III - Monitor creatine Therapeutic hypernatremia - Developing mild edema and net positive several liters since admission. Will consider diuresis, may help with acidemia also. HEME Acute blood loss anemia: -Monitor ID Multifocal pneumonia -Continue IV antibiotics DNR Prophylaxis: SCDs DC planning: Family conference for Tuesday pending assessment of neuro status over coming days Result Diagram: 12/24/18 0500 12/24/18 0500 Subjective 24 Hr Interval Summary Free Text/Dictation No acute overnight events. Exam/Review of Systems Exam Vitals Vital Signs Date Temp Pulse Resp B/P (MAP) Pulse Ox O2 O2 Flow FiO2 Time Delivery Rate 12/24/18 75 30 98/56 (70) 99 12:30 12/24/18 99.2 Mechanical 12:00 Ventilator 12/24/18 55 11:15 Intake and Output 12/23/18 12/23/18 12/24/18 1515:00 23:00 07:00 IntakeIntake Total 917.50 ml 1138.75 ml 1167.5 ml OutputOutput Total 659 ml 364 ml 414 ml BalanceBalance 258.50 ml 774.75 ml 753.5 ml Exam Gen: Well built man intubated, sedated, on cooling machine. Head: Sagittal incision stapled shut. ventriculostomy drain with yellowish fluid. HEENT: Moist mucous membranes Card: Regular rate and rhythm, no murmurs Pulm: Tachypneic, mechanical breath sounds bilaterally. Abd: Soft, nondistended. Ext: warm, no edema. Results Results 24hrs Laboratory Tests Test 12/24/18 05:00 12/24/18 10:30 12/24/18 12:30 White Blood Count 10.5 # Red Blood Count 3.03 L Hemoglobin 8.7 L Hematocrit 28.4 L Mean Corpuscular 93.7 Volume Mean Corpuscular 28.7 L Hemoglobin Mean Corpuscular 30.6 L Hemoglobin Concent Red Cell 16.7 H Distribution Width Platelet Count 356 Mean Platelet 10.9 H Volume Immature 8.400 H Granulocytes % Neutrophils % Segmented 53 Neutrophils % (Manual) Band Neutrophils % 25 H (Manual) Lymphocytes % Lymphocytes % 9 L (Manual) Monocytes % Monocytes % 2 (Manual) Eosinophils % Basophils % Metamyelocytes % 2 H (manual) Myelocytes % 6 H (Manual) Promyelocytes % 1 H (Manual) Plasma Cells % 2 (manual) Nucleated Red Blood 2 H Cells % Immature 0.890 H Granulocytes # Neutrophils # Neutrophils # 5.8 (Manual) Band Neutrophils # 2.6 H Lymphocytes 0.9 (Manual) Lymphocytes # Monocytes # Monocytes # 0.2 L (Manual) Eosinophils # Basophils # Metamyelocytes # 0.2 H Myelocytes # 0.6 H Promyelocytes # 0.1 H Plasma Cells # 0.2 H (manual) Nucleated Red Blood Cells # Platelet Estimate NORMAL Giant Platelets 1 H Polychromasia 1+ Poikilocytosis 2+ Anisocytosis 1+ Tear Drop Cells 1+ Blood Gas Specimen Blood arterial Blood arterial Blood arterial Source Arterial Blood Date 12/24/2018 4:35:15 12/24/2018 11:18:27 12/24/2018 1:00:10 Drawn AM AM PM Arterial Blood pH 7.183 *L 7.331 L 7.300 L (Temp corrected) Arterial Blood pCO2 59.2 H 43.2 43.2 (Temp correct) Arterial Blood pO2 81.7 81.0 75.1 L (Temp corrected) Arterial Blood HCO3 21.8 L 22.3 20.8 L Arterial Blood Base -7.1 L -3.4 L -5.3 L Excess Arterial Blood 95.5 96.0 95.0 Oxygen Saturation Vipin Test N/A N/A N/A Arterial Blood Gas A-Line PUL ART LINE A-Line Puncture Site Arterial 0.3 0.3 0.3 Blood Carboxyhemogl obin Arterial Blood 0.4 0.3 0.3 Methemoglobin Blood Gas A-a O2 426.5 H 263.1 H 269.0 H Differential Oxyhemoglobin 94.8 95.4 94.4 Percent Blood Gas 37.0 37.0 37.0 Temperature Blood Gas 20.0 20.0 30.0 Respiration Rate Blood Gas Actual 28 27 30 Respiration Rate Blood Gas Modality VENT - AC VENT - AC VENT - PC FiO2 80.0 55.0 55.0 Blood Gas Tidal 450.0 550.0 Volume Blood Gas Low PEEP 8.0 8.0 8.0 Setting Blood Gas Critical Kalpesh DAVIS RN Value Read Back Blood Gas Notified MR ALESSANDRO FRANCOIS Whom Blood Gas Notified 12/24/2018 4:55:13 12/24/2018 11:22:34 12/24/2018 1:03:36 Time AM AM PM Sodium Level 143 Potassium Level 4.9 Chloride Level 115 H Carbon Dioxide 23 Level Anion Gap 5 Blood Urea Nitrogen 58 H Creatinine 1.22 Est Glomerular Filtrat Rate mL/min Glucose Level 129 Calcium Level 8.3 L Blood Gas 0.80 Inspiratory Time Blood Gas 25.0 Inspiratory Pressure Medications Medication Current Medications Ondansetron HCl (Zofran Inj) 4 mg Q6H PRN IV NAUSEA/VOMITING; Start 12/15/18 at 18:00 Naloxone HCl (Narcan) 0.2 mg Q2M PRN IV .RR 8 BREATHS/MIN OR LESS; Start 12/15/18 at 18:00 Neomycin/ Polymyxin/ Bacitracin (Neosporin Topical Oint) 1 applic BID TOP Last administered on 12/24/18at 09:28; Admin Dose 1 APPLIC; Start 12/15/18 at 21:00 Propofol 100 ml @ 2.25 mls/hr Q12H IV Last administered on 12/24/18at 10:30; Admin Dose 22.5 MLS/HR; Start 12/15/18 at 19:00 Nicardipine HCl 50 mg/Sodium Chloride 500 ml @ 0 mls/hr TITRATE IV Last adm inistered on 12/20/18 23:15; Admin Dose 70 MLS/HR; Start 12/16/18 at 12:00 Hydralazine HCl (Apresoline) 10 mg Q6H PRN IV ELEVATED BLOOD PRESSURE Last administered on 12/20/18 15:04; Admin Dose 10 MG; Start 12/16/18 at 17:00 Acetaminophen (Tylenol Liquid) 650 mg Q4H PRN NGT MILD PAIN(1-3)OR ELEVATED TEMP Last administered on 12/18/18 19:32; Admin Dose 650 MG; Start 12/16/18 at 21:00 Fentanyl 100 ml @ 2.5 mls/hr TITRATE IV Last administered on 12/24/18 10:11; Admin Dose 10 MLS/HR; Start 12/16/18 at 22:30 Acetaminophen/ Hydrocodone Bitart ([place] (5/325)) 1 tab Q6H PRN PO MODERATE PAIN LEVEL 4-6 Last administered on 12/19/18 00:47; Admin Dose 1 TAB; Start 12/17/18 at 12:30 Hydromorphone HCl (Dilaudid) 0.4 mg Q1H PRN IV PAIN Last administered on 12/23/18 08:35; Admin Dose 0.4 MG; Start 12/19/18 at 00:00 Aztreonam 2 gm/ Sodium Chloride 100 ml @ 100 mls/hr Q8 IVPB Last administered on 12/24/18 13:16; Admin Dose 100 MLS/HR; Start 12/19/18 at 11:00 Vancomycin HCl (Vanco Iv Per Pharmacy) VANCOMYCIN PER PHARMACY PER PROTOCOL XX ; Start 12/20/18 at 11:00 Lansoprazole (Prevacid) 30 mg DAILY@06 GTB Last administered on 12/24/18 05:07; Admin Dose 30 MG; Start 12/21/18 at 06:00 Midazolam HCl 50 ml @ 1 mls/hr TITRATE IV Last administered on 12/24/18 09:29; Admin Dose 10 MLS/HR; Start 12/21/18 at 02:00 Vancomycin/Sodium Chloride 250 ml @ 125 mls/hr Q12H IVPB Last administered on 12/24/18at 11:15; Admin Dose 125 MLS/HR; Start 12/22/18 at 11:00 Levetiracetam 750 mg/Sodium Chloride 107.5 ml @ 430 mls/hr Q12 IV Last administered on 12/24/18at 09:27; Admin Dose 430 MLS/HR; Start 12/22/18 at 21:00 Miscellaneous Information (*Rx Drug Level Order Reminder*) TIA MYRICK ON 12/24 @ 2,200 ONCE ONCE XX ; Start 12/24/18 at 22:00; Stop 12/24/18 at 22:01 ROME SPENCER MD Dec 24, 2018 13:41
[2018-12-25] VITALS (55 sets, daily range): BP systolic 95–143; BP diastolic 45–64; PULSE 93–121; RESP 24–34
[2018-12-25] MEDS ORDERED: ALBUMIN HUMAN 25% 100 ML IV ONE
[2018-12-25] MEDS: PROPOFOL 100 ML IV SCH ×4 (00:47→22:47)
[2018-12-25] MEDS ORDERED: LABETALOL HCL 20MG INJ IV ONE (02:00)
[2018-12-25] MEDS ORDERED: LABETALOL HCL 20MG INJ ONE (02:01)
[2018-12-25] MEDS: LANSOPRAZOLE 30 MG CAP GTB SCH (05:41)
[2018-12-25] MEDS: AZTREONAM 2 GM in SOD CHLORIDE 0.9% 100 ML IVPB SCH ×3 (05:41→21:51)
[2018-12-25] MEDS: NEOMYC/POLYMYX/BACIT 30 GM OINT TOP SCH ×2 (08:55→21:05)
[2018-12-25] MEDS: FENTAnyl (DRIP) 1000 mcg/100mL 100 ML IV SCH ×2 (08:57→20:27)
[2018-12-25] MEDS: LEVETIRACETAM IV 750 MG in SOD CHLORIDE 0.9% 100 ML IV SCH ×2 (09:46→21:05)
--- NOTE | 2018-12-25 10:48 | CONS ---
Consult Date/Type/Reason Admit Date/Time Dec 15, 2018 at 11:55 Initial Consult Date Type of Consult Pulmonary Requesting Provider: CASSANDRA WHITE MD Date/Time of Note DATE: 12/25/18 TIME: 10:42 Subjective Patient remains somnolent on mechanical ventilation. Continues pressure control ventilation. Objective Vital Signs Date Temp Pulse Resp B/P (MAP) Pulse Ox O2 O2 Flow FiO2 Time Delivery Rate 12/25/18 80 10:06 12/25/18 97 30 108/52 100 09:30 (70) 12/25/18 Mechanical 09:00 Ventilator 12/25/18 99.5 04:00 Intake and Output 12/24/18 12/24/18 12/25/18 1515:00 23:00 07:00 IntakeIntake Total 1441.5 ml 1021.0 ml 1045.0 ml OutputOutput Total 613 ml 488 ml 156 ml BalanceBalance 828.5 ml 533.0 ml 889.0 ml Exam GENERAL: Elderly [place] gentleman orally intubated with ventriculostomy drain. VITAL SIGNS: per chart NECK: Supple. No JVD or lymphadenopathy. CARDIAC EXAM: S1, S2. No added sounds or murmurs. CHEST: Diminished air entry bilaterally ABDOMEN: Soft, nontender. Mildly distended with decreased bowel sounds EXTREMITIES: No cyanosis, clubbing edema +2 NEUROLOGIC: Sedated. Unable to asses Vent Setting Ventilator Support Mode: AC, PC Fraction of Inspired Oxygen pe: 80 Positive End Expiratory Pressu: 8.0 Results/Medications Result Diagram: 12/25/18 0445 12/25/18 0445 Results 24 hrs Laboratory Tests Test 12/24/18 11:29 12/24/18 12:30 12/24/18 21:55 12/25/18 04:45 Blood Gas Blood arterial Blood arterial Specimen Source Arterial Blood 12/25/2018 4:05: 12/24/2018 1:00: Date Drawn 00 AM 10 PM Arterial Blood 7.213 *L 7.300 L pH (Temp corrected) Arterial Blood 53.9 H 43.2 pCO2 (Temp correct) Arterial Blood 151.3 H 75.1 L pO2 (Temp corrected) Arterial Blood 21.2 L 20.8 L HCO3 Arterial Blood -6.2 L -5.3 L Base Excess Arterial Blood 98.8 95.0 Oxygen Saturatio n Vipin Test N/A N/A Arterial Blood A-Line A-Line Gas Puncture Site Arterial 0.6 0.3 Blood Carboxyhem oglobin Arterial Blood 0.9 0.3 Methemoglobin Blood Gas A-a O2 217.2 H 269.0 H Differential Oxyhemoglobin 97.3 94.4 Percent Blood Gas 37.0 37.0 Temperature Blood Gas 30.0 30.0 Respiration Rate Blood Gas Actual 30 30 Respiration Rate Blood Gas VENT - PC VENT - PC Modality FiO2 60.0 55.0 Blood Gas Low 8.0 8.0 PEEP Setting Blood Gas 25.0 25.0 Inspiratory Pressure Blood Gas JBettie PACOL, RN Critical Value Read Back Blood Gas MM MDA Notified Whom Blood Gas 12/25/2018 4:47: 12/24/2018 1:03: Notified Time 14 AM 36 PM Blood Gas 0.80 Inspiratory Time Vancomycin Level 16.8 Trough White Blood 13.0 #H Count Red Blood Count 2.67 L Hemoglobin 7.7 L Hematocrit 24.7 L Mean Corpuscular 92.5 Volume Mean Corpuscular 28.8 L Hemoglobin Mean Corpuscular 31.2 L Hemoglobin Yolis nt Red Cell 17.5 H Distribution Width Platelet Count 314 Mean Platelet 11.4 H Volume Immature 10.600 H Granulocytes % Neutrophils % Segmented 61 Neutrophils % (Manual) Band Neutrophils 17 H % (Manual) Lymphocytes % Lymphocytes % 11 L (Manual) Monocytes % Monocytes % 6 (Manual) Eosinophils % Basophils % Metamyelocytes % 1 H (manual) Myelocytes % 3 H (Manual) Promyelocytes % 1 H (Manual) Nucleated Red 1 H Blood Cells % Immature 1.380 H Granulocytes # Neutrophils # Neutrophils # 8.2 H (Manual) Band Neutrophils 2.2 H # Lymphocytes 1.4 (Manual) Lymphocytes # Monocytes # Monocytes # 0.7 (Manual) Eosinophils # Basophils # Metamyelocytes # 0.1 H Myelocytes # 0.3 H Promyelocytes # 0.1 H Nucleated Red Blood Cells # Platelet NORMAL Estimate Polychromasia 3+ Poikilocytosis 3+ Anisocytosis 2+ Microcytosis 1+ Macrocytosis 2+ Rouleau 1+ Sodium Level 149 H Potassium Level 5.4 H Chloride Level 116 H Carbon Dioxide 21 Level Anion Gap 12 # Blood Urea 65 H Nitrogen Creatinine 1.65 H Est Glomerular Filtrat Rate mL/min Glucose Level 125 Calcium Level 8.2 L Medications Current Medications Ondansetron HCl (Zofran Inj) 4 mg Q6H PRN IV NAUSEA/VOMITING; Start 12/15/18 at 18:00 Naloxone HCl (Narcan) 0.2 mg Q2M PRN IV .RR 8 BREATHS/MIN OR LESS; Start 12/15/18 at 18:00 Neomycin/ Polymyxin/ Bacitracin (Neosporin Topical Oint) 1 applic BID TOP Last administered on 12/25/18 08:55; Admin Dose 1 APPLIC; Start 12/15/18 at 21:00 Propofol 100 ml @ 2.25 mls/hr Q12H IV Last administered on 12/25/18 08:01; Admin Dose 13.5 MLS/HR; Start 12/15/18 at 19:00 Nicardipine HCl 50 mg/Sodium Chloride 500 ml @ 0 mls/hr TITRATE IV Last admin istered on 12/20/18 23:15; Admin Dose 70 MLS/HR; Start 12/16/18 at 12:00 Hydralazine HCl (Apresoline) 10 mg Q6H PRN IV ELEVATED BLOOD PRESSURE Last administered on 12/20/18 15:04; Admin Dose 10 MG; Start 12/16/18 at 17:00 Acetaminophen (Tylenol Liquid) 650 mg Q4H PRN NGT MILD PAIN(1-3)OR ELEVATED TEMP Last administered on 12/18/18 19:32; Admin Dose 650 MG; Start 12/16/18 at 21:00 Fentanyl 100 ml @ 2.5 mls/hr TITRATE IV Last administered on 12/25/18 08:57; Admin Dose 10 MLS/HR; Start 12/16/18 at 22:30 Acetaminophen/ Hydrocodone Bitart ([place] (5/325)) 1 tab Q6H PRN PO MODERATE PAIN LEVEL 4-6 Last administered on 12/19/18 00:47; Admin Dose 1 TAB; Start 12/17/18 at 12:30 Hydromorphone HCl (Dilaudid) 0.4 mg Q1H PRN IV PAIN Last administered on 12/23/18 08:35; Admin Dose 0.4 MG; Start 12/19/18 at 00:00 Aztreonam 2 gm/ Sodium Chloride 100 ml @ 100 mls/hr Q8 IVPB Last administered on 12/25/18 05:41; Admin Dose 100 MLS/HR; Start 12/19/18 at 11:00 Vancomycin HCl (Vanco Iv Per Pharmacy) VANCOMYCIN PER PHARMACY PER PROTOCOL XX ; Start 12/20/18 at 11:00 Lansoprazole (Prevacid) 30 mg DAILY@06 GTB Last administered on 12/25/18at 05:41; Admin Dose 30 MG; Start 12/21/18 at 06:00 Midazolam HCl 50 ml @ 1 mls/hr TITRATE IV Last administered on 12/24/18at 22:11; Admin Dose 10 MLS/HR; Start 12/21/18 at 02:00 Vancomycin/Sodium Chloride 250 ml @ 125 mls/hr Q12H IVPB Last administered on 12/24/18at 23:23; Admin Dose 125 MLS/HR; Start 12/22/18 at 11:00 Levetiracetam 750 mg/Sodium Chloride 107.5 ml @ 430 mls/hr Q12 IV Last administered on 12/25/18at 09:46; Admin Dose 430 MLS/HR; Start 12/22/18 at 21:00 Assessment/Plan Hospital Course (Demo Recall) IMP: 1. Intraparenchymal hemorrhage, now status post evacuation. Ventriculostomy drain in place. 2. Encephalopathy secondary to above. 3. Resp Failure//Vent dependence 2/2 #1 & 2 4. ALI/ARDS--with poor compliance on the vent (Pplat of 38 cm H20) 5. Renal insufficiency, likely prerenal. Improved 6. Anemia RECS: 1. D/C versed gtt 2. Vent--> continue pressure control ventilation 3. Follow neuro examination closely 4. TF/ free H20 5. Family meeting today Critical care time 40 minutes. Anticipate transition to comfort care SAROJ HANNA MD, [facility] Dec 25, 2018 10:48
[2018-12-25] MEDS: VANCOMYCIN 750 MG (PMX) 250 ML IVPB SCH ×2 (11:15→23:06)
--- NOTE | 2018-12-25 14:16 | CONS ---
Assessment/Plan Assessment/Plan Hospital Course 73 M c/ reported Hx of HTN, who is admitted to the [facility] ICU for management of acute cerebral hemorrhage...for which neurology is consulted.. s/p emergent neurosurgery on 12/15 P: Await goals of care decisions from primary physician and medical decision maker conversation Post-op management per neurosurgery Cont Keppra 750mg iv bid for now Ativan iv prn prolonged seizure Strict BP control (SBP < 160) Hold antiplatelets and anticoagulants Will follow clinically Consultation Date/Type/Reason Admit Date/Time Dec 15, 2018 at 11:55 Type of Consult Neurology Reason for Consultation ICH Requesting Provider: CASSANDRA WHITE MD Date/Time of Note DATE: 12/25/18 TIME: 14:16 24 HR Interval Summary Free Text/Dictation Continues critical care. EVD output ~ 5cc/hr. Remains intubated on propofol, fentanyl and versed gtt. No seizure events reported. Family meeting reportedly scheduled for today to determine goals of care. Subjective hx not possible: pt non-verbal, pt critical Exam Vital Signs Vitals Vital Signs Date Temp Pulse Resp B/P (MAP) Pulse Ox O2 O2 Flow FiO2 Time Delivery Rate 12/25/18 93 34 108/51 99 Mechanical 14:00 (70) Ventilator 12/25/18 99.6 12:00 12/25/18 80 10:06 Intake and Output 12/24/18 12/24/18 12/25/18 1414:59 22:59 06:59 IntakeIntake Total 1431.5 ml 1019.0 ml 1024.0 ml OutputOutput Total 614 ml 516 ml 177 ml BalanceBalance 817.5 ml 503.0 ml 847.0 ml Exam PE: Gen Appearance: No Apparent Distress HEENT: Intubated; L frontal EVD, R frontal intraparenchymal drain Cardiovascular: Regular rate Abdomen: Soft Extremities: Dry NE: The patient was comatose... Cranial nerve examination was limited by mental status. Pupils were equal and sluggishly reactive to light. There was no afferent pupillary defect. Funduscopic examination was limited. Face was grossly symmetric, w/ present corneal and cough reflexes. Tone was normal. Muscle bulk was normal. No fasciculations were noted. The pt did not withdraw to noxious stimuli. Coordination and gait testing was limited by mental status. Arm and leg reflexes were symmetric. Munoz's sign was absent. Plantar responses were flexor. VICK DIEHL NP Dec 25, 2018 14:16 PARTHA MILLER Dec 25, 2018 17:06
--- NOTE | 2018-12-25 15:39 | PN ---
Date/Time of Note Date/Time of Note DATE: 12/25/18 TIME: 15:38 Assessment/Plan VTE Prophylaxis Risk score (from Nsg)>0 risk: 21 SCD applied (from Ns): Yes Pharmacological prophylaxis: heparin Lines/Catheters IV Catheter Type (from Nrsg): Central Line Central line still needed: Yes Urinary Cath still in place: Yes Reason Cath still needed: urinary retention Assessment/Plan Hospital Course 73 yo male who presents with obtundation acute and found to have hemorrhagic stroke/ICH with severe hypertension. Right frontoparietal craniotomy for evacuation of ICH and left frontal ventriculostomy - Remains intubated. Family planning for likely terminal extubation tomorrow NEURO: ICH - s/p Right frontoparietal craniotomy for evacuation of ICH and Left frontal ventriculostomy 12/15 - HOB > 30 - Na goal 145-150 - Keppra ppx -Repeat CT head shows mild improvement in hematoma size -Patient with minimal reflexes off sedation, still not following commands CV: hypertension - Cardene drip discontinued secondary to hypotension -Status post IV fluid bolus for hypotension, BP now stable PULM: Acute respiratory failure secondary to intracranial hemorrhage with development of multifocal pneumonia - MV per pulmonary -Broad-spectrum antibiotics RENAL CKD III - Monitor creatine Therapeutic hypernatremia HEME Acute blood loss anemia: -Monitor ID Multifocal pneumonia -Continue IV antibiotics DNR Prophylaxis: SCDs DC planning: Family conference for Tuesday pending assessment of neuro status over coming days Result Diagram: 12/25/18 0445 12/25/18 0445 Results 24hrs Laboratory Tests Test 12/24/18 21:55 12/25/18 04:45 Vancomycin Level Trough 16.8 White Blood Count 13.0 #H Red Blood Count 2.67 L Hemoglobin 7.7 L Hematocrit 24.7 L Mean Corpuscular Volume 92.5 Mean Corpuscular Hemoglobin 28.8 L Mean Corpuscular Hemoglobin Concent 31.2 L Red Cell Distribution Width 17.5 H Platelet Count 314 Mean Platelet Volume 11.4 H Immature Granulocytes % 10.600 H Neutrophils % Segmented Neutrophils % (Manual) 61 Band Neutrophils % (Manual) 17 H Lymphocytes % Lymphocytes % (Manual) 11 L Monocytes % Monocytes % (Manual) 6 Eosinophils % Basophils % Metamyelocytes % (manual) 1 H Myelocytes % (Manual) 3 H Promyelocytes % (Manual) 1 H Nucleated Red Blood Cells % 1 H Immature Granulocytes # 1.380 H Neutrophils # Neutrophils # (Manual) 8.2 H Band Neutrophils # 2.2 H Lymphocytes (Manual) 1.4 Lymphocytes # Monocytes # Monocytes # (Manual) 0.7 Eosinophils # Basophils # Metamyelocytes # 0.1 H Myelocytes # 0.3 H Promyelocytes # 0.1 H Nucleated Red Blood Cells # Platelet Estimate NORMAL Polychromasia 3+ Poikilocytosis 3+ Anisocytosis 2+ Microcytosis 1+ Macrocytosis 2+ Rouleau 1+ Sodium Level 149 H Potassium Level 5.4 H Chloride Level 116 H Carbon Dioxide Level 21 Anion Gap 12 # Blood Urea Nitrogen 65 H Creatinine 1.65 H Est Glomerular Filtrat Rate mL/min Glucose Level 125 Calcium Level 8.2 L Subjective 24 Hr Interval Summary Free Text/Dictation Remains intubated and heavily sedated 65% FiO2 Discussed situation with family. They are planning for terminal extubation tomorrow Exam/Review of Systems Exam Vitals Vital Signs Date Temp Pulse Resp B/P (MAP) Pulse Ox O2 O2 Flow FiO2 Time Delivery Rate 12/25/18 94 30 125/59 98 15:30 (81) 12/25/18 Mechanical 15:00 Ventilator 12/25/18 80 13:50 12/25/18 99.6 12:00 Intake and Output 12/24/18 12/24/18 12/25/18 1515:00 23:00 07:00 IntakeIntake Total 1441.5 ml 1021.0 ml 1105.0 ml OutputOutput Total 613 ml 488 ml 166 ml BalanceBalance 828.5 ml 533.0 ml 939.0 ml Exam Sedated Intubated Breathing comfortably, rhonchi RRR Results Results 24hrs Laboratory Tests Test 12/24/18 21:55 12/25/18 04:45 Vancomycin Level Trough 16.8 White Blood Count 13.0 #H Red Blood Count 2.67 L Hemoglobin 7.7 L Hematocrit 24.7 L Mean Corpuscular Volume 92.5 Mean Corpuscular Hemoglobin 28.8 L Mean Corpuscular Hemoglobin Concent 31.2 L Red Cell Distribution Width 17.5 H Platelet Count 314 Mean Platelet Volume 11.4 H Immature Granulocytes % 10.600 H Neutrophils % Segmented Neutrophils % (Manual) 61 Band Neutrophils % (Manual) 17 H Lymphocytes % Lymphocytes % (Manual) 11 L Monocytes % Monocytes % (Manual) 6 Eosinophils % Basophils % Metamyelocytes % (manual) 1 H Myelocytes % (Manual) 3 H Promyelocytes % (Manual) 1 H Nucleated Red Blood Cells % 1 H Immature Granulocytes # 1.380 H Neutrophils # Neutrophils # (Manual) 8.2 H Band Neutrophils # 2.2 H Lymphocytes (Manual) 1.4 Lymphocytes # Monocytes # Monocytes # (Manual) 0.7 Eosinophils # Basophils # Metamyelocytes # 0.1 H Myelocytes # 0.3 H Promyelocytes # 0.1 H Nucleated Red Blood Cells # Platelet Estimate NORMAL Polychromasia 3+ Poikilocytosis 3+ Anisocytosis 2+ Microcytosis 1+ Macrocytosis 2+ Rouleau 1+ Sodium Level 149 H Potassium Level 5.4 H Chloride Level 116 H Carbon Dioxide Level 21 Anion Gap 12 # Blood Urea Nitrogen 65 H Creatinine 1.65 H Est Glomerular Filtrat Rate mL/min Glucose Level 125 Calcium Level 8.2 L Medications Medication Current Medications Ondansetron HCl (Zofran Inj) 4 mg Q6H PRN IV NAUSEA/VOMITING; Start 12/15/18 at 18:00 Naloxone HCl (Narcan) 0.2 mg Q2M PRN IV .RR 8 BREATHS/MIN OR LESS; Start 12/15/18 at 18:00 Neomycin/ Polymyxin/ Bacitracin (Neosporin Topical Oint) 1 applic BID TOP Last administered on 12/25/18at 08:55; Admin Dose 1 APPLIC; Start 12/15/18 at 21:00 Propofol 100 ml @ 2.25 mls/hr Q12H IV Last administered on 12/25/18at 15:18; Admin Dose 13.5 MLS/HR; Start 12/15/18 at 19:00 Nicardipine HCl 50 mg/Sodium Chloride 500 ml @ 0 mls/hr TITRATE IV Last administered on 12/20/18at 23:15; Admin Dose 70 MLS/HR; Start 12/16/18 at 12:00 Hydralazine HCl (Apresoline) 10 mg Q6H PRN IV ELEVATED BLOOD PRESSURE Last administered on 12/20/18at 15:04; Admin Dose 10 MG; Start 12/16/18 at 17:00 Acetaminophen (Tylenol Liquid) 650 mg Q4H PRN NGT MILD PAIN(1-3)OR ELEVATED TEMP Last administered on 12/18/18 19:32; Admin Dose 650 MG; Start 12/16/18 at 21:00 Fentanyl 100 ml @ 2.5 mls/hr TITRATE IV Last administered on 12/25/18 08:57; Admin Dose 10 MLS/HR; Start 12/16/18 at 22:30 Acetaminophen/ Hydrocodone Bitart ([place] (5/325)) 1 tab Q6H PRN PO MODERATE PAIN LEVEL 4-6 Last administered on 12/19/18 00:47; Admin Dose 1 TAB; Start 12/17/18 at 12:30 Hydromorphone HCl (Dilaudid) 0.4 mg Q1H PRN IV PAIN Last administered on 12/23/18 08:35; Admin Dose 0.4 MG; Start 12/19/18 at 00:00 Aztreonam 2 gm/ Sodium Chloride 100 ml @ 100 mls/hr Q8 IVPB Last administered on 12/25/18 13:24; Admin Dose 100 MLS/HR; Start 12/19/18 at 11:00 Vancomycin HCl (Vanco Iv Per Pharmacy) VANCOMYCIN PER PHARMACY PER PROTOCOL XX ; Start 12/20/18 at 11:00 Lansoprazole (Prevacid) 30 mg DAILY@06 GTB Last administered on 12/25/18 05:41; Admin Dose 30 MG; Start 12/21/18 at 06:00 Midazolam HCl 50 ml @ 1 mls/hr TITRATE IV Last administered on 12/24/18 22:11; Admin Dose 10 MLS/HR; Start 12/21/18 at 02:00 Vancomycin/Sodium Chloride 250 ml @ 125 mls/hr Q12H IVPB Last administered on 12/25/18 11:15; Admin Dose 125 MLS/HR; Start 12/22/18 at 11:00 Levetiracetam 750 mg/Sodium Chloride 107.5 ml @ 430 mls/hr Q12 IV Last administered on 12/25/18 09:46; Admin Dose 430 MLS/HR; Start 12/22/18 at 21:00 Miscellaneous Information (*Rx Drug Level Order Reminder*) VANCO TR ON 12/26 @ 1,000 ONCE ONCE XX ; Start 12/26/18 at 10:00; Stop 12/26/18 at 10:01 CASSANDRA WHITE MD Dec 25, 2018 15:39
[2018-12-26] VITALS (85 sets, daily range): BP systolic 71–141; BP diastolic 39–63; PULSE 96–112; RESP 0–35
[2018-12-26] MEDS: LANSOPRAZOLE 30 MG CAP GTB SCH (05:26)
[2018-12-26] MEDS: ACETAMINOPHEN 650MG/20.3ML CUP NGT PRN ×3 (05:30→18:24)
[2018-12-26] MEDS: AZTREONAM 2 GM in SOD CHLORIDE 0.9% 100 ML IVPB SCH ×3 (05:57→21:56)
[2018-12-26] MEDS: PROPOFOL 100 ML IV SCH ×4 (06:06→21:22)
[2018-12-26] MEDS: FENTAnyl (DRIP) 1000 mcg/100mL 100 ML IV SCH ×2 (07:18→18:58)
[2018-12-26] MEDS: NEOMYC/POLYMYX/BACIT 30 GM OINT TOP SCH ×2 (08:50→21:27)
[2018-12-26] MEDS: LEVETIRACETAM IV 750 MG in SOD CHLORIDE 0.9% 100 ML IV SCH ×2 (09:33→21:28)
[2018-12-26] MEDS: VANCOMYCIN 750 MG (PMX) 250 ML IVPB SCH (11:00)
--- NOTE | 2018-12-26 11:36 | CONS ---
Consult Date/Type/Reason Admit Date/Time Dec 15, 2018 at 11:55 Initial Consult Date Type of Consult Pulmonary Requesting Provider: CASSANDRA WHITE MD Date/Time of Note DATE: 12/26/18 TIME: 11:36 Subjective Remains unresponsive on mechanical ventilation. Remains febrile also. Objective Vital Signs Date Temp Pulse Resp B/P (MAP) Pulse Ox O2 O2 Flow FiO2 Time Delivery Rate 12/26/18 101 30 114/55 97 08:15 (74) 12/26/18 101.1 [place] 08:00 l Ventilato r 12/26/18 80 05:17 Intake and Output 12/25/18 12/25/18 12/26/18 1515:00 23:00 07:00 IntakeIntake Total 1316.5 ml 987.5 ml 994.5 ml OutputOutput Total 200 ml 414 ml 296 ml BalanceBalance 1116.5 ml 573.5 ml 698.5 ml Exam GENERAL: Elderly [place] gentleman orally intubated with ventriculostomy drain. VITAL SIGNS: per chart NECK: Supple. No JVD or lymphadenopathy. CARDIAC EXAM: S1, S2. No added sounds or murmurs. CHEST: Diminished air entry bilaterally ABDOMEN: Soft, nontender. Mildly distended with decreased bowel sounds EXTREMITIES: No cyanosis, clubbing edema +2 NEUROLOGIC: Sedated. Unable to asses Vent Setting Ventilator Support Mode: PC Fraction of Inspired Oxygen pe: 80 Positive End Expiratory Pressu: 8.0 Results/Medications Result Diagram: 12/26/18 0423 12/26/18 0423 Results 24 hrs Laboratory Tests Test 12/26/18 04:23 12/26/18 07:00 12/26/18 10:19 White Blood Count 12.2 H Red Blood Count 2.50 L Hemoglobin 7.1 L Hematocrit 23.1 L Mean Corpuscular Volume 92.4 Mean Corpuscular Hemoglobin 28.4 L Mean Corpuscular 30.7 L Hemoglobin Concent Red Cell Distribution Width 17.9 H Platelet Count 289 Mean Platelet Volume 10.9 H Immature Granulocytes % 9.600 H Neutrophils % 80.5 H Segmented Neutrophils 78 H % (Manual) Band Neutrophils % (Manual) 13 H Lymphocytes % 4.3 L Lymphocytes % (Manual) 1 L Reactive Lymphocytes 1 H % (Manual) Monocytes % 4.6 Monocytes % (Manual) 3 Eosinophils % 0.8 Basophils % 0.2 Metamyelocytes % (manual) 4 H Nucleated Red Blood Cells % 1 H Immature Granulocytes # 1.180 H Neutrophils # 9.9 H Neutrophils # (Manual) 9.7 H Band Neutrophils # 1.5 H Lymphocytes (Manual) 0.1 L Lymphocytes # 0.5 L Reactive Lymphocytes # 0.1 H Monocytes # 0.6 Monocytes # (Manual) 0.3 Eosinophils # 0.1 Basophils # 0.0 Metamyelocytes # 0.4 H Nucleated Red Blood Cells # 0.1 H Platelet Estimate NORMAL Giant Platelets 1 H Polychromasia 3+ Anisocytosis 2+ Microcytosis 1+ Macrocytosis 1+ Stomatocytes 1+ Sodium Level 149 H Potassium Level 6.0 H Chloride Level 117 H Carbon Dioxide Level 20 L Anion Gap 12 Blood Urea Nitrogen 88 H Creatinine 2.52 H Est Glomerular Filtrat Rate mL/min Glucose Level 128 Calcium Level 8.0 L Phosphorus Level 7.0 H Magnesium Level 3.1 H Blood Gas Specimen Source Blood arterial Arterial Blood Date Drawn 12/26/2018 8:00:18 AM Arterial Blood pH 7.208 *L (Temp corrected) Arterial Blood pCO2 49.8 H (Temp correct) Arterial Blood pO2 90.1 H (Temp corrected) Arterial Blood HCO3 19.4 L Arterial Blood Base Excess -8.1 L Arterial Blood 95.6 Oxygen Saturation Vipin Test N/A Arterial Blood Gas A-Line Puncture Site Arterial 0.8 Blood Carboxyhemoglobin Arterial Blood Methemoglobin 0.6 Blood Gas A-a O2 428.0 H Differential Oxyhemoglobin Percent 94.3 Blood Gas Temperature 37.0 Blood Gas Respiration Rate 30.0 Blood Gas Actual 30 Respiration Rate Blood Gas Modality VENT - PC FiO2 80.0 Blood Gas Low PEEP Setting 8.0 Blood Gas Inspiratory 25.0 Pressure Blood Gas Critical Value [id number] RN Read Back Blood Gas Notified Whom TM Blood Gas Notified Time 12/26/2018 8:09:22 AM Vancomycin Level Trough 24.6 *H Medications Current Medications Ondansetron HCl (Zofran Inj) 4 mg Q6H PRN IV NAUSEA/VOMITING; Start 12/15/18 at 18:00 Naloxone HCl (Narcan) 0.2 mg Q2M PRN IV .RR 8 BREATHS/MIN OR LESS; Start 12/15/18 at 18:00 Neomycin/ Polymyxin/ Bacitracin (Neosporin Topical Oint) 1 applic BID TOP Last administered on 12/26/18 08:50; Admin Dose 1 APPLIC; Start 12/15/18 at 21:00 Propofol 100 ml @ 2.25 mls/hr Q12H IV Last administered on 12/26/18 06:06; Admin Dose 13.5 MLS/HR; Start 12/15/18 at 19:00 Nicardipine HCl 50 mg/Sodium Chloride 500 ml @ 0 mls/hr TITRATE IV Last administered on 12/20/18 23:15; Admin Dose 70 MLS/HR; Start 12/16/18 at 12:00 Hydralazine HCl (Apresoline) 10 mg Q6H PRN IV ELEVATED BLOOD PRESSURE Last administered on 12/20/18 15:04; Admin Dose 10 MG; Start 12/16/18 at 17:00 Acetaminophen (Tylenol Liquid) 650 mg Q4H PRN NGT MILD PAIN(1-3)OR ELEVATED TEMP Last administered on 12/26/18 05:30; Admin Dose 650 MG; Start 12/16/18 at 21:00 Fentanyl 100 ml @ 2.5 mls/hr TITRATE IV Last administered on 12/26/18 07:18; Admin Dose 10 MLS/HR; Start 12/16/18 at 22:30 Acetaminophen/ Hydrocodone Bitart ([place] (5/325)) 1 tab Q6H PRN PO MODERATE PAIN LEVEL 4-6 Last administered on 12/19/18 00:47; Admin Dose 1 TAB; Start 12/17/18 at 12:30 Hydromorphone HCl (Dilaudid) 0.4 mg Q1H PRN IV PAIN Last administered on 12/23/18 08:35; Admin Dose 0.4 MG; Start 12/19/18 at 00:00 Aztreonam 2 gm/ Sodium Chloride 100 ml @ 100 mls/hr Q8 IVPB Last administered on 12/26/18 05:57; Admin Dose 100 MLS/HR; Start 12/19/18 at 11:00 Vancomycin HCl (Vanco Iv Per Pharmacy) VANCOMYCIN PER PHARMACY PER PROTOCOL XX ; Start 12/20/18 at 11:00 Lansoprazole (Prevacid) 30 mg DAILY@06 GTB Last administered on 3/19/19at 05:26; Admin Dose 30 MG; Start 12/21/18 at 06:00 Midazolam HCl 50 ml @ 1 mls/hr TITRATE IV Last administered on 12/24/18at 22:11; Admin Dose 10 MLS/HR; Start 12/21/18 at 02:00 Levetiracetam 750 mg/Sodium Chloride 107.5 ml @ 430 mls/hr Q12 IV Last administered on 12/26/18at 09:33; Admin Dose 430 MLS/HR; Start 12/22/18 at 21:00 Vancomycin/Sodium Chloride 250 ml @ 125 mls/hr Q36H IVPB ; Start 12/27/18 at 11:00 Assessment/Plan Hospital Course (Demo Recall) IMP: 1. Intraparenchymal hemorrhage, now status post evacuation. Ventriculostomy drain in place. 2. Encephalopathy secondary to above. 3. Resp Failure//Vent dependence 2/2 #1 & 2 4. ALI/ARDS--with poor compliance on the vent (Pplat of 38 cm H20) 5. Renal insufficiency, likely prerenal. Improved 6. Anemia RECS: 1. D/C versed gtt 2. Vent--> continue pressure control ventilation 3. Follow neuro examination closely 4. TF/ free H20 Critical care time 40 minutes. Anticipate transition to comfort care SAROJ HANNA MD, [facility] Dec 26, 2018 11:36
--- NOTE | 2018-12-26 14:17 | CONS ---
Assessment/Plan Assessment/Plan Hospital Course 73 M c/ reported Hx of HTN, who is admitted to the [facility] ICU for management of acute cerebral hemorrhage...for which neurology is consulted.. s/p emergent neurosurgery on 12/15 P: Await goals of care decisions from primary physician and medical decision maker conversation Post-op management per neurosurgery Cont Keppra 750mg iv bid for now Ativan iv prn prolonged seizure Strict BP control (SBP < 160) Hold antiplatelets and anticoagulants Will follow clinically Consultation Date/Type/Reason Admit Date/Time Dec 15, 2018 at 11:55 Type of Consult Neurology Reason for Consultation ICH Requesting Provider: CASSANDRA WHITE MD Date/Time of Note DATE: 12/26/18 TIME: 14:17 24 HR Interval Summary Free Text/Dictation Continues critical care. Pt stable. Awaiting family decision regarding goals of care. Subjective hx not possible: pt non-verbal, pt critical Exam Vital Signs Vitals Vital Signs Date Temp Pulse Resp B/P (MAP) Pulse Ox O2 O2 Flow FiO2 Time Delivery Rate 12/26/18 104 30 112/46 98 14:00 (68) 12/26/18 80 13:30 12/26/18 99.3 Mechanical 11:15 Ventilator Intake and Output 12/25/18 12/25/18 12/26/18 1515:00 23:00 07:00 IntakeIntake Total 1316.5 ml 987.5 ml 994.5 ml OutputOutput Total 200 ml 414 ml 296 ml BalanceBalance 1116.5 ml 573.5 ml 698.5 ml Exam PE: Gen Appearance: No Apparent Distress HEENT: Intubated; L frontal EVD, R frontal intraparenchymal drain Cardiovascular: Regular rate Abdomen: Soft Extremities: Dry NE: The patient was comatose... Cranial nerve examination was limited by mental status. Pupils were equal and sluggishly reactive to light. There was no afferent pupillary defect. Funduscopic examination was limited. Face was grossly symmetric, w/ present corneal and cough reflexes. Tone was normal. Muscle bulk was normal. No fasciculations were noted. The pt did not withdraw to noxious stimuli. Coordination and gait testing was limited by mental status. Arm and leg reflexes were symmetric. Munoz's sign was absent. Plantar responses were flexor. VICK DIEHL NP Dec 26, 2018 14:17
--- NOTE | 2018-12-26 14:28 | PN ---
Date/Time of Note Date/Time of Note DATE: 12/26/18 TIME: 14:27 Assessment/Plan VTE Prophylaxis Risk score (from Nsg)>0 risk: 16 SCD applied (from Nsg): Yes Pharmacological prophylaxis: heparin Lines/Catheters IV Catheter Type (from Nrsg): Central Line Central line still needed: Yes Urinary Cath still in place: Yes Reason Cath still needed: urinary retention Assessment/Plan Hospital Course 73 yo male who presents with obtundation acute and found to have hemorrhagic stroke/ICH with severe hypertension. Right frontoparietal craniotomy for evacuation of ICH and left frontal ventriculostomy - Remains intubated. Family planning for likely terminal extubation today VENITA: - Likley septic ATN NEURO: ICH - s/p Right frontoparietal craniotomy for evacuation of ICH and Left frontal ventriculostomy 12/15 - HOB > 30 - Na goal 145-150 - Keppra ppx -Repeat CT head shows mild improvement in hematoma size -Patient with minimal reflexes off sedation, still not following commands CV: hypertension - Cardene drip discontinued secondary to hypotension -Status post IV fluid bolus for hypotension, BP now stable PULM: Acute respiratory failure secondary to intracranial hemorrhage with development of multifocal pneumonia - MV per pulmonary -Broad-spectrum antibiotics RENAL CKD III - Monitor creatine Therapeutic hypernatremia HEME Acute blood loss anemia: -Monitor ID Multifocal pneumonia -Continue IV antibiotics DNR Prophylaxis: SCDs DC planning: Family conference for Tuesday pending assessment of neuro status over coming days Result Diagram: 12/26/18 0423 12/26/18 0423 Results 24hrs Laboratory Tests Test 12/26/18 04:23 12/26/18 07:00 12/26/18 10:19 White Blood Count 12.2 H Red Blood Count 2.50 L Hemoglobin 7.1 L Hematocrit 23.1 L Mean Corpuscular Volume 92.4 Mean Corpuscular Hemoglobin 28.4 L Mean Corpuscular 30.7 L Hemoglobin Concent Red Cell Distribution Width 17.9 H Platelet Count 289 Mean Platelet Volume 10.9 H Immature Granulocytes % 9.600 H Neutrophils % 80.5 H Segmented Neutrophils 78 H % (Manual) Band Neutrophils % (Manual) 13 H Lymphocytes % 4.3 L Lymphocytes % (Manual) 1 L Reactive Lymphocytes 1 H % (Manual) Monocytes % 4.6 Monocytes % (Manual) 3 Eosinophils % 0.8 Basophils % 0.2 Metamyelocytes % (manual) 4 H Nucleated Red Blood Cells % 1 H Immature Granulocytes # 1.180 H Neutrophils # 9.9 H Neutrophils # (Manual) 9.7 H Band Neutrophils # 1.5 H Lymphocytes (Manual) 0.1 L Lymphocytes # 0.5 L Reactive Lymphocytes # 0.1 H Monocytes # 0.6 Monocytes # (Manual) 0.3 Eosinophils # 0.1 Basophils # 0.0 Metamyelocytes # 0.4 H Nucleated Red Blood Cells # 0.1 H Platelet Estimate NORMAL Giant Platelets 1 H Polychromasia 3+ Anisocytosis 2+ Microcytosis 1+ Macrocytosis 1+ Stomatocytes 1+ Sodium Level 149 H Potassium Level 6.0 H Chloride Level 117 H Carbon Dioxide Level 20 L Anion Gap 12 Blood Urea Nitrogen 88 H Creatinine 2.52 H Est Glomerular Filtrat Rate mL/min Glucose Level 128 Calcium Level 8.0 L Phosphorus Level 7.0 H Magnesium Level 3.1 H Blood Gas Specimen Source Blood arterial Arterial Blood Date Drawn 12/26/2018 8:00:18 AM Arterial Blood pH 7.208 *L (Temp corrected) Arterial Blood pCO2 49.8 H (Temp correct) Arterial Blood pO2 90.1 H (Temp corrected) Arterial Blood HCO3 19.4 L Arterial Blood Base Excess -8.1 L Arterial Blood 95.6 Oxygen Saturation Vipin Test N/A Arterial Blood Gas A-Line Puncture Site Arterial 0.8 Blood Carboxyhemoglobin Arterial Blood Methemoglobin 0.6 Blood Gas A-a O2 428.0 H Differential Oxyhemoglobin Percent 94.3 Blood Gas Temperature 37.0 Blood Gas Respiration Rate 30.0 Blood Gas Actual 30 Respiration Rate Blood Gas Modality VENT - PC FiO2 80.0 Blood Gas Low PEEP Setting 8.0 Blood Gas Inspiratory 25.0 Pressure Blood Gas Critical Value MMONTGOMERY RN Read Back Blood Gas Notified Whom TM Blood Gas Notified Time 12/26/2018 8:09:22 AM Vancomycin Level Trough 24.6 *H Subjective 24 Hr Interval Summary Free Text/Dictation Remains intubated on MV Now in renal failure Febrile Exam/Review of Systems Exam Vitals Vital Signs Date Temp Pulse Resp B/P (MAP) Pulse Ox O2 O2 Flow FiO2 Time Delivery Rate 12/26/18 104 30 112/46 98 14:00 (68) 12/26/18 80 13:30 12/26/18 99.3 Mechanical 11:15 Ventilator Intake and Output 12/25/18 12/25/18 12/26/18 1515:00 23:00 07:00 IntakeIntake Total 1316.5 ml 987.5 ml 994.5 ml OutputOutput Total 200 ml 414 ml 296 ml BalanceBalance 1116.5 ml 573.5 ml 698.5 ml Exam Intubated, sedated RRR Rhonchi anteriorly Soft ntnd Results Results 24hrs Laboratory Tests Test 12/26/18 04:23 12/26/18 07:00 12/26/18 10:19 White Blood Count 12.2 H Red Blood Count 2.50 L Hemoglobin 7.1 L Hematocrit 23.1 L Mean Corpuscular Volume 92.4 Mean Corpuscular Hemoglobin 28.4 L Mean Corpuscular 30.7 L Hemoglobin Concent Red Cell Distribution Width 17.9 H Platelet Count 289 Mean Platelet Volume 10.9 H Immature Granulocytes % 9.600 H Neutrophils % 80.5 H Segmented Neutrophils 78 H % (Manual) Band Neutrophils % (Manual) 13 H Lymphocytes % 4.3 L Lymphocytes % (Manual) 1 L Reactive Lymphocytes 1 H % (Manual) Monocytes % 4.6 Monocytes % (Manual) 3 Eosinophils % 0.8 Basophils % 0.2 Metamyelocytes % (manual) 4 H Nucleated Red Blood Cells % 1 H Immature Granulocytes # 1.180 H Neutrophils # 9.9 H Neutrophils # (Manual) 9.7 H Band Neutrophils # 1.5 H Lymphocytes (Manual) 0.1 L Lymphocytes # 0.5 L Reactive Lymphocytes # 0.1 H Monocytes # 0.6 Monocytes # (Manual) 0.3 Eosinophils # 0.1 Basophils # 0.0 Metamyelocytes # 0.4 H Nucleated Red Blood Cells # 0.1 H Platelet Estimate NORMAL Giant Platelets 1 H Polychromasia 3+ Anisocytosis 2+ Microcytosis 1+ Macrocytosis 1+ Stomatocytes 1+ Sodium Level 149 H Potassium Level 6.0 H Chloride Level 117 H Carbon Dioxide Level 20 L Anion Gap 12 Blood Urea Nitrogen 88 H Creatinine 2.52 H Est Glomerular Filtrat Rate mL/min Glucose Level 128 Calcium Level 8.0 L Phosphorus Level 7.0 H Magnesium Level 3.1 H Blood Gas Specimen Source Blood arterial Arterial Blood Date Drawn 12/26/2018 8:00:18 AM Arterial Blood pH 7.208 *L (Temp corrected) Arterial Blood pCO2 49.8 H (Temp correct) Arterial Blood pO2 90.1 H (Temp corrected) Arterial Blood HCO3 19.4 L Arterial Blood Base Excess -8.1 L Arterial Blood 95.6 Oxygen Saturation Vipin Test N/A Arterial Blood Gas A-Line Puncture Site Arterial 0.8 Blood Carboxyhemoglobin Arterial Blood Methemoglobin 0.6 Blood Gas A-a O2 428.0 H Differential Oxyhemoglobin Percent 94.3 Blood Gas Temperature 37.0 Blood Gas Respiration Rate 30.0 Blood Gas Actual 30 Respiration Rate Blood Gas Modality VENT - PC FiO2 80.0 Blood Gas Low PEEP Setting 8.0 Blood Gas Inspiratory 25.0 Pressure Blood Gas Critical Value MMONTGOMERY RN Read Back Blood Gas Notified Whom TM Blood Gas Notified Time 12/26/2018 8:09:22 AM Vancomycin Level Trough 24.6 *H Medications Medication Current Medications Ondansetron HCl (Zofran Inj) 4 mg Q6H PRN IV NAUSEA/VOMITING; Start 12/15/18 at 18:00 Naloxone HCl (Narcan) 0.2 mg Q2M PRN IV .RR 8 BREATHS/MIN OR LESS; Start 12/15/18 at 18:00 Neomycin/ Polymyxin/ Bacitracin (Neosporin Topical Oint) 1 applic BID TOP Last administered on 12/26/18at 08:50; Admin Dose 1 APPLIC; Start 12/15/18 at 21:00 Propofol 100 ml @ 2.25 mls/hr Q12H IV Last administered on 12/26/18at 11:46; Admin Dose 13.5 MLS/HR; Start 12/15/18 at 19:00 Nicardipine HCl 50 mg/Sodium Chloride 500 ml @ 0 mls/hr TITRATE IV Last administered on 12/20/18 23:15; Admin Dose 70 MLS/HR; Start 12/16/18 at 12:00 Hydralazine HCl (Apresoline) 10 mg Q6H PRN IV ELEVATED BLOOD PRESSURE Last administered on 12/20/18 15:04; Admin Dose 10 MG; Start 12/16/18 at 17:00 Acetaminophen (Tylenol Liquid) 650 mg Q4H PRN NGT MILD PAIN(1-3)OR ELEVATED TEMP Last administered on 12/26/18 05:30; Admin Dose 650 MG; Start 12/16/18 at 21:00 Fentanyl 100 ml @ 2.5 mls/hr TITRATE IV Last administered on 12/26/18 07:18; Admin Dose 10 MLS/HR; Start 12/16/18 at 22:30 Acetaminophen/ Hydrocodone Bitart (Souris (5/325)) 1 tab Q6H PRN PO MODERATE PAIN LEVEL 4-6 Last administered on 12/19/18 00:47; Admin Dose 1 TAB; Start 12/17/18 at 12:30 Hydromorphone HCl (Dilaudid) 0.4 mg Q1H PRN IV PAIN Last administered on 12/23/18 08:35; Admin Dose 0.4 MG; Start 12/19/18 at 00:00 Aztreonam 2 gm/ Sodium Chloride 100 ml @ 100 mls/hr Q8 IVPB Last administered on 12/26/18 13:22; Admin Dose 100 MLS/HR; Start 12/19/18 at 11:00 Vancomycin HCl (Vanco Iv Per Pharmacy) VANCOMYCIN PER PHARMACY PER PROTOCOL XX ; Start 12/20/18 at 11:00 Lansoprazole (Prevacid) 30 mg DAILY@06 GTB Last administered on 12/26/18 05:26; Admin Dose 30 MG; Start 12/21/18 at 06:00 Midazolam HCl 50 ml @ 1 mls/hr TITRATE IV Last administered on 12/24/18at 22:11; Admin Dose 10 MLS/HR; Start 12/21/18 at 02:00 Levetiracetam 750 mg/Sodium Chloride 107.5 ml @ 430 mls/hr Q12 IV Last administered on 12/26/18 09:33; Admin Dose 430 MLS/HR; Start 12/22/18 at 21:00 Vancomycin/Sodium Chloride 250 ml @ 125 mls/hr Q36H IVPB ; Start 12/27/18 at 11:00 CASSANDRA WHITE MD Dec 26, 2018 14:28
--- NOTE | 2018-12-26 23:44 | PN ---
Date/Time of Note Date/Time of Note DATE: 12/26/18 TIME: 23:43 Copies To: Assessment/Plan Date of progress note: 12/26/2018 The patient remains in the ICU attending critical condition. He is intubated and ventilator dependent. He is on propofol and fentanyl and has been weaned off of her set. Off sedation the patient becomes tachypneic and appears very agitated and as a result cannot be taken off of sedation. Bilateral pupils are 2 mm. He does not open eyes to voice or deep pain. He has bilateral corneal reflex. He does not move his upper or lower extremities to deep pain. He does not follow commands. The left frontal enterocolostomy drain puts out about 3-5 cc of nearly cleared CSF an hour. The patient has had several episodes of fevers overnight and is receiving IV antibiotics for treatment of pneumonia. The patient's white count has decreased from 13 yesterday to 12.2 today. His serum sodium is 149 and he has been started on tube feeds. Assessment/plan: The patient remains in a deep coma. He is hemodynamically stable. The patient has had meetings with physicians and psychosocial rehabilitation counselor several times regarding further treatment care: Continued supportive care versus comfort care and would like to wait a few more days to reassess the patient's condition. If the family decides to continue with supportive care, the patient will need tracheostomy as well as a gastrostomy tube insertion. In the meantime, a new CT of the head without contrast will be obtained tomorrow to look for further evolution of the patient's ICH and IVH and we will attempt to clamp the ve ntriculostomy after the CT scan is done. The patient's status will be reassessed and based on his clinical status and a postEVD clamping, the ventriculostomy may be able to be removed. BRYN PINK MD Dec 26, 2018 23:44
[2018-12-27] VITALS (35 sets, daily range): BP systolic 61–97; BP diastolic 39–61; PULSE 0–130; RESP 0–32
[2018-12-27] MEDS: ALBUMIN HUMAN 25% 100 ML IV SCH ×2 (03:30→04:07)
[2018-12-27] MEDS: ACETAMINOPHEN 650MG/20.3ML CUP NGT PRN (04:06)
[2018-12-27] MEDS: LANSOPRAZOLE 30 MG CAP GTB SCH (05:11)
[2018-12-27] MEDS: AZTREONAM 2 GM in SOD CHLORIDE 0.9% 100 ML IVPB SCH (05:11)
--- NOTE | 2018-12-27 06:58 | EN ---
Date/Time of Note Date/Time of Note DATE: 12/27/18 TIME: 06:56 Event Note Medicine Medicine Event Note Pronouncement Note Patient seen and examined at the bedside. Patient non responsive to vigorous sternal rub. Non responsive to verbal commands. Pupils fixed and non reactive to light bilaterally. No heart sounds appreciated on auscultation. Tele-monitor showing asystole. Patient pronounced at 6:54am. Family is aware, Primary team aware. URI GONZALEZ Dec 27, 2018 06:58
[2018-12-27] MEDS ORDERED: VANCOMYCIN 750 MG (PMX) 250 ML IVPB SCH (11:00)
--- NOTE | 2018-12-27 16:52 | DES ---
Date/Time of Note Date/Time of Note DATE: 12/27/18 TIME: 16:49 Discharge/ Summary Admission/Discharge Info Admit Date/Time Dec 15, 2018 at 11:55 Final Diagnosis Intracerebral hemorrhage Preliminary Cause of Intracerebral hemorrhage Admit History 73 yo male with h/o hypertension who was found obtunded on his couch by family He is unable to provide a history. Found to have ICH and taken emergently to OR. Family requests DNR status but agrees to surgical management Hospital Course 73 yo male who presents with obtundation acute and found to have hemorrhagic stroke/ICH with severe hypertension. Right frontoparietal craniotomy for evacuation of ICH and left frontal ventriculostomy He was maintained on mechanical ventilation. He developed worsening hypoxia constistent with pneumonia and given antibiotics He went into acute renal failure Family was planning for terminal extubation, however no final plans were made Patient then . No CPR performed in accordance with family wishes. Pronounced by ICU staff. Family notifed by ICU staff. Pending Labs/Cultures Laboratory Tests Test 12/27/18 04:00 White Blood Count 17.1 10^3/ul (4.8-10.8) Red Blood Count 2.28 10^6/ul (4.70-6.10) Hemoglobin 6.5 g/dl (14.0-18.0) Hematocrit 21.9 % (42.0-52.0) Mean Corpuscular Volume 96.1 fl (82.0-101.0) Mean Corpuscular Hemoglobin 28.5 pg (29.0-33.0) Mean Corpuscular Hemoglobin Concent 29.7 g/dl (32.0-37.0) Red Cell Distribution Width 18.6 % (11.5-14.5) Platelet Count 278 10^3/UL (140-415) Mean Platelet Volume 10.9 fl (7.4-10.4) Immature Granulocytes % 9.200 % (0.001-0.429) Neutrophils % % (39.0-77.0) Segmented Neutrophils % (Manual) 79 % (39-77) Band Neutrophils % (Manual) 9 % (0-4) Lymphocytes % % (15.0-51.0) Lymphocytes % (Manual) 2 % (15-51) Monocytes % % (0.0-11.0) Monocytes % (Manual) 4 % (0-11) Eosinophils % % (0.0-7.0) Eosinophils % (Manual) 1 % (0-7) Basophils % % (0.0-2.0) Metamyelocytes % (manual) 2 % (0-0) Myelocytes % (Manual) 3 % (0-0) Nucleated Red Blood Cells % 1.6 /100WBC (0.0-0.0) Immature Granulocytes # 1.570 10^3/ul (0.0-0.031) Neutrophils # 10^3/ul (1.6-7.5) Neutrophils # (Manual) 13.8 10^3/ul (1.6-7.5) Band Neutrophils # 1.5 10^3/ul (0.0-0.6) Lymphocytes (Manual) 0.3 10^3/ul (0.8-2.9) Lymphocytes # 10^3/ul (0.8-2.9) Monocytes # 10^3/ul (0.3-0.9) Monocytes # (Manual) 0.6 10^3/ul (0.3-0.9) Eosinophils # 10^3/ul (0.0-0.5) Basophils # 10^3/ul (0.0-0.1) Metamyelocytes # 0.3 10^3/ul (0.0-0.0) Myelocytes # 0.5 10^3/ul (0.0-0.0) Nucleated Red Blood Cells # 10^3/ul (0.0-0.0) Platelet Estimate NORMAL Giant Platelets 3 % (0-0) Polychromasia 1+ (0-0) Hypochromasia 1+ (0-0) Poikilocytosis 1+ (0-0) Anisocytosis 1+ (0-0) Macrocytosis 1+ (0-0) Ovalocytes 1+ (0-0) CASSANDRA WHITE MD Dec 27, 2018 16:52
== END 2018-12-27 06:54 | disposition expired | DRG 23 ==
LOC: E/R 11:10 → REC 11:55 → ICU 18:13
PROVIDERS: ADMIT Internal Medicine; ATTEND Internal Medicine
PROC: 009600Z Drainage of Cerebral Ventricle with Drainage Device, Open Approach (ICD-10-PCS; 2018-12-15)
PROC: 00N00ZZ Release Brain, Open Approach (ICD-10-PCS; 2018-12-15)
PROC: 0BH17EZ Insertion of Endotracheal Airway into Trachea, Via Natural or Artificial Opening (ICD-10-PCS; 2018-12-15)
PROC: 5A1955Z Respiratory Ventilation, Greater than 96 Consecutive Hours (ICD-10-PCS; 2018-12-15)
PROC: 30233R1 Transfusion of Nonautologous Platelets into Peripheral Vein, Percutaneous Approach (ICD-10-PCS; 2018-12-15)
PROC: 00C00ZZ Extirpation of Matter from Brain, Open Approach (ICD-10-PCS; principal; 2018-12-15 14:00)
PROC: 30233N1 Transfusion of Nonautologous Red Blood Cells into Peripheral Vein, Percutaneous Approach (ICD-10-PCS; 2018-12-16)
DX: I61.8 Other nontraumatic intracerebral hemorrhage (principal); G93.5 Compression of brain; J18.8 Other pneumonia, unspecified organism; J96.01 Acute respiratory failure with hypoxia; D62 Acute posthemorrhagic anemia; G93.49 Other encephalopathy; N17.9 Acute kidney failure, unspecified; G81.94 Hemiplegia, unspecified affecting left nondominant side; I61.5 Nontraumatic intracerebral hemorrhage, intraventricular; I12.9 Hypertensive chronic kidney disease with stage 1 through stage 4 chronic kidney disease, or unspecified chronic kidney disease; R40.2432 Glasgow coma scale score 3-8, at arrival to emergency department; N18.3 Chronic kidney disease, stage 3 (moderate); R40.20 Unspecified coma; Z66 Do not resuscitate
CPT/HCPCS: 36415; 36430; 36600; 70450; 71045; 80048; 80053; 80061; 80202; 80307; 81003; 82550; 82553; 82803; 82962; 83036; 83735; 84100; 84295; 84484; 85025; 85610; 85730; 86644; 86850; 86900; 86901; 86920; 87040; 87081; 88304; 93005; 94002; 94003; 94770; C1713; C9113; J0360; J0690; J1170; J1940; J1953; J2060; J2150; J2250; J2370; J2597; J3010; J3370; J3480; J7040; J7050; P9016; P9035; P9047